=== PATIENT | female | born 1940 | race Caucasian/White ===

== ENCOUNTER → 2018-08-20 | Outpatient (CLI) | payer BC ==
[2013-12-30 16:30] VITALS: BP 124/70
[~2018-08-20] MED LIST: CELE200C PO; GADOTERATE 5 MMOL/10ML VIAL. IVP ONE; LECI1200 PO; NITR100C PO; OMEG-57 PO; Oxycodone Hcl/Acetaminophen PO; TRAM50TA PO; TRIA1TAB5 PO; WARF-78 PO; Warfarin Sodium MC
--- NOTE | 2018-08-20 15:54 | KCIC ---
MRI Brain with and without contrast History: Multiple sclerosis, leg weakness Technique: Multiplanar, multi sequential pre and postcontrast MR imaging was performed of the brain. Comparison: None available Findings: There is no evidence of recent infarct or cytotoxic edema. The ventricles, sulci, and cisterns are within normal limits in size and configuration. There is no significant midline shift, intraaxial mass effect, or focal abnormal extra-axial fluid collection. There are several scattered foci T2 and FLAIR hyperintense signal of the supratentorial parenchyma bilaterally, largest of the left centrum semiovale about 1.1 cm. Some new foci have a perpendicular orientation relative lateral ventricles. There is no nodular parenchymal or leptomeningeal enhancement. There is preservation of the major intracranial flow-voids at the skull base. The cerebellar tonsils are normal in location. There is no significant abnormality of the pineal gland or pituitary gland. There is mild right maxillary sinus mucosal thickening, large right maxillary sinus mucous retention cyst about 3 cm, also some small foci of likely complex mucous retention cysts present. The mastoid air cells are aerated. There is preserved marrow signal of the clivus. Impression: 1. There is no evidence of recent infarct or abnormal intracranial enhancement. There are some scattered foci of nonenhancing T2 and FLAIR hyperintense signal abnormality of the supratentorial parenchyma bilaterally, nonspecific findings which could be seen with provided history of inflammatory demyelinating disease. 2. There are right maxillary sinus mucous retention cysts. Electronically signed by: Bharathi Navas MD (08/20/2018 3:51 PM) [id number]
== END | disposition home or self-care (01) ==
LOC: KCIC MRI 13:31
PROVIDERS: ATTEND Psychiatry & Neurology Neurology with Special Qualifications in Child Neurology
DX: J34.1 Cyst and mucocele of nose and nasal sinus (principal); G93.89 Other specified disorders of brain; G35 Multiple sclerosis; Z87.891 Personal history of nicotine dependence
CPT/HCPCS: 70553; 82565; A9575

== ENCOUNTER 2020-07-02 10:41 | Inpatient (IN) | payer BC ==
[~2020-07-02] VITALS: Ht 167.6 cm; Wt 96.0 kg
[~2020-07-02 10:41] MED LIST changes: -GADOTERATE 5 MMOL/10ML VIAL. IVP ONE; -LECI1200 PO; +LEVO25TA55 PO; -WARF-78 PO; +WARF5TAB2 PO; +[UNRECOGNIZED DRUG - CODE] PO
[2020-07-02] MEDS ORDERED: AMMONIA AROMATIC 15% INHALANT AMPUL. ONE (10:54)
[2020-07-02] MEDS ORDERED: AMMONIA AROMATIC 15% INHALANT AMPUL. INH ONE (11:00)
[2020-07-02 11:10] LABS: BASO % 1 % (0-3); EOS % 1 % (0-3); HEMATOCRIT 41.5 % (36.0-47.0); HEMOGLOBIN 14.1 g/dL (12.0-15.5); LYMPH # 1.6 x10^3/uL (1.0-4.8); LYMPH % 26 % (24-48); MEAN CORPUSCULAR HEMOGLOBIN 31 pg (25-35); MEAN CORPUSCULAR HGB CONC 34 g/dL (31-37); MEAN CORPUSCULAR VOLUME 92 fL (79-100); MONO # 0.4 x10^3/uL (0.0-1.1); MONO % 6 % (0-9); NEUT # 4.1 x10^3/uL (1.8-7.7); NEUT % 67 % (31-73); PLATELET COUNT 234 x10^3/uL (140-400); RED CELL DISTRIBUTION WIDTH 15.1 % (11.5-14.5); WHITE BLOOD COUNT 6.1 x10^3/uL (4.0-11.0)
[2020-07-02 11:16] LABS: BILIRUBIN,URINE NEGATIVE (NEG); CLARITY,URINE CLEAR; COLOR,URINE YELLOW; NITRITE,URINE POSITIVE (NEG); PROTEIN,URINE NEGATIVE (NEG-TRACE); UROBILINOGEN,URINE 0.2 mg/dL (0.2 mg/dL)
[2020-07-02 11:20] LABS: CALCIUM 9.4 mg/dL (8.5-10.1); CREATININE 0.6 mg/dL (0.6-1.0); GFR 96.2; POTASSIUM 3.9 mmol/L (3.5-5.1)
[2020-07-02 11:25] LABS: BARBITURATES NEG (NEG); BENZODIAZEPINES NEG (NEG); CANNABINOIDS NEG (NEG); COCAINE NEG (NEG); METHADONE NEG (NEG); OPIATES NEG (NEG); PHENCYCLIDINE NEG (NEG)
[2020-07-02 11:26] LABS: BACTERIA,URINE MANY /HPF (0-FEW)
[2020-07-02 11:26] LABS: SALIC < 2.8 mg/dL (2.8-20.0)
[2020-07-02 11:27] LABS: ACETAMIN < 2 mcg/ml (10-30); ETHANOL < 10 mg/dL (0-10)
[2020-07-02 11:27] LABS: AMPHETAMINE/METHAMPHETAMINE NEG (NEG)
[2020-07-02 11:34] LABS: ALBUMIN 3.3 g/dL (3.4-5.0); ALBUMIN/GLOBULIN RATIO 0.9 (1.0-1.7); MAGNESIUM 1.8 mg/dL (1.8-2.4); TOTAL BILIRUBIN 0.4 mg/dL (0.2-1.0); TOTAL PROTEIN 6.9 g/dL (6.4-8.2)
[2020-07-02] MEDS ORDERED: cefTRIAXone IV Push 1 GM VIAL. IVP ONE (12:00)
[2020-07-02] MEDS ORDERED: IV NORMAL SALINE 500ML BAG 500 ML IV ONE (12:15)
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
--- NOTE | 2020-07-02 12:47 | EKG ---
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: : 1940 Requested By: MEGHA HEAD Order Number: [id number] Reading MD: Measurements Intervals [place] Rate: 83 P: 38 HI: 170 QRS: -42 QRSD: 106 T: 109 QT: 356 QTc: 419 Interpretive Statements SINUS RHYTHM VENTRICULAR PREMATURE COMPLEX(ES) ATRIAL PREMATURE COMPLEX(ES) ATRIAL ESCAPE COMPLEX(ES) ABNORMAL LEFT AXIS DEVIATION R-S TRANSITION ZONE IN V LEADS DISPLACED TO THE LEFT LEFT ANTERIOR FASCICULAR BLOCK INCOMPLETE RIGHT BUNDLE BRANCH BLOCK LVH WITH REPOLARIZATION ABNORMALITY QRS(T) CONTOUR ABNORMALITY CONSIDER ANTEROSEPTAL MYOCARDIAL DAMAGE ABNORMAL ECG RI6.02 No previous ECG available for comparison
[2020-07-02] MEDS ORDERED: ACETAMINOPHEN 325 MG TABLET. PO PRN (13:00)
[2020-07-02] MEDS ORDERED: ONDANSETRON PF 4 MG/2 ML VIAL. IV PRN (13:00)
--- NOTE | 2020-07-02 13:19 | RAD ---
PQRS Compliance Statement: One or more of the following individualized dose reduction techniques were utilized for this examinat ion: 1. Automated exposure control 2. Adjustment of the mA and/or kV according to patient size 3. Use of iterative reconstruction technique CT HEAD AND CERVICAL SPINE WITHOUT CONTRAST History: Reason: ams / Spl. Instructions: / History: Comparison: CT head and cervical spine without contrast January 24, 2019. Procedure: Axial images are obtained of the head from the skull base through the vertex without IV co ntrast. Noncontrast helical CT of the cervical spine was performed. Axial, sagittal, and coronal rec onstructions were obtained. Findings: The ventricles and sulci are normal for the patient's age. There is mild periventricular white matter hypoattenuation. This is a nonspecific finding but is com monly due to chronic small vessel ischemic disease in a patient of this age. No mass-effect, midline shift, hemorrhage or obvious acute infarction is identified. Basilar cistern s are patent. Bone windows demonstrate no significant calvarial abnormality. There is large mucous retention cyst or polyp partially seen in the right maxillary sinus. There is n o air-fluid level. Mastoid air cells are well aerated. There is no evidence of acute fracture or acute malalignment of the cervical spine. There are no perched or jumped facet joints. Facet joints are mildly hypertrophic, worse on the right . There is grade 1 anterolisthesis of C4 on C5. The alignment is otherwise maintained. There is disc space narrowing and degenerative endplate spurring and sclerosis and uncinate process hypertrophy of C5/C6 and C6/C7. There is an 8 mm left thyroid nodule. There is a 9 mm right thyroid nodule. The visualized lung apice s are clear. IMPRESSION: 1. No acute intracranial abnormality. 2. No acute fracture of the cervical spine. 3. Subcentimeter bilateral thyroid nodules. Electronically signed by: Waldo Webber MD (07/02/2020 1:16 PM) [id number]
[2020-07-02] MEDS: IV NORMAL SALINE 1000ML BAG 1,000 ML IV SCH ×2 (13:55→23:38)
--- NOTE | 2020-07-02 14:41 | HP ---
ADMIT DATE: 07/02/2020 CHIEF COMPLAINT: Mental status changes. HISTORY OF PRESENT ILLNESS: The patient is a pleasant, middle-aged female, who presented to the ER with mental status change. It appears she might be malingering perhaps attention seeking. She does live by herself. Her daughter lives on the same property. Her daughter states that the patient has been having some mental status change and some memory issues over the recent past. While in the ER, we noticed that she has also had a UTI. I discussed the case with ER physician. We are going to admit the patient and get her some IV antibiotics and fluids. PAST MEDICAL HISTORY: Possible early dementia, hypertension, multiple sclerosis. PAST SURGICAL HISTORY: Knee surgery. ALLERGIES: ASPARTAME, ATORVASTATIN, CHLORHEXIDINE, CODEINE. FAMILY HISTORY: Stroke. SOCIAL HISTORY: She does not drink, smoke or take drugs. She lives alone. MEDICATIONS: Reviewed. Please refer for the MRAD. REVIEW OF SYSTEMS: Unable to obtain. The patient refuses to talk. PHYSICAL EXAMINATION: VITAL SIGNS: template but she will need to force her eyes open and she refuses to talk, but she has refused to talk psychiatric followup, but she refuses to talk. PHYSICAL EXAMINATION: VITALS: Within normal limits and are stable. GENERAL: She refuses to talk. HEENT: Normal cephalic atraumatic, external auditory canals are patent. EYES: Extraocular muscles are intact, pupils are equally round and reactive to light and accommodation. MUSCULOSKELETAL: Well developed, well nourished, good range of motion. ENDOCRINE: No thyromegaly was palpated. LYMPHATICS: No cervical chain or axillary nodes were noted. HEMATOPOIETIC: No bruising. NECK: Supple, no JVD, no thyromegaly was noted. LUNGS: Clear to auscultation in all lung cuevas without rhonchi or wheezing. HEART: RRR, S1, S2 present. Peripheral pulses intact, no obvious murmurs were noted. ABDOMEN: Soft, nontender. Positive bowel sounds no organomegaly, normal bowel sounds. EXTREMITIES: Without any cyanosis, clubbing, or edema. Pedal pulses intact, Homans sign is negative. NEUROLOGIC: She would not let me to force her eyes open and she refuses to talk. PSYCHIATRIC: She refuses to talk. SKIN: No ulcerations or rashes, good skin turgor, no jaundice. VASCULAR: Good capillary refill, neurovascular bundle appears to be intact. LABORATORY DATA: White count 6. Electrolytes are normal. Urinalysis shows a large amount of leukocyte esterase and 11-20 white cells. ASSESSMENT AND PLAN: Mental status change with incidental finding of urinary tract infection. PLAN: The patient has been admitted. We will give her empiric IV antibiotics and fluids, home meds. DVT prophylaxis. Full code. She might need long-term care or skilled. We will see how she does in the next day or two. VILMA DR: Coretta TID: [id number]
--- NOTE | 2020-07-02 16:51 | NUR ---
Pt. states she does not know her home meds, daughter is to bring list.
[2020-07-02] MEDS ORDERED: TRIA1TAB3 PO (18:38)
[2020-07-02 19:00] VITALS: BP 130/71
[2020-07-02 23:00] VITALS: BP 124/50
[2020-07-03 03:00] VITALS: BP 93/35
[2020-07-03 04:57] LABS: BASO % 1 % (0-3); EOS # 0.1 x10^3/uL (0.0-0.7); EOS % 2 % (0-3); HEMATOCRIT 37.9 % (36.0-47.0); HEMOGLOBIN 12.7 g/dL (12.0-15.5); LYMPH # 1.8 x10^3/uL (1.0-4.8); LYMPH % 25 % (24-48); MEAN CORPUSCULAR HEMOGLOBIN 32 pg (25-35); MEAN CORPUSCULAR HGB CONC 33 g/dL (31-37); MEAN CORPUSCULAR VOLUME 95 fL (79-100); MONO # 0.5 x10^3/uL (0.0-1.1); MONO % 7 % (0-9); NEUT # 4.9 x10^3/uL (1.8-7.7); NEUT % 66 % (31-73); PLATELET COUNT 209 x10^3/uL (140-400); RED CELL DISTRIBUTION WIDTH 15.4 % (11.5-14.5); WHITE BLOOD COUNT 7.4 x10^3/uL (4.0-11.0)
[2020-07-03 05:41] LABS: CALCIUM 8.5 mg/dL (8.5-10.1); CREATININE 0.5 mg/dL (0.6-1.0); GFR 118.7; POTASSIUM 3.5 mmol/L (3.5-5.1)
[2020-07-03 07:00] VITALS: BP 131/62
[2020-07-03] MEDS: IV NORMAL SALINE 1000ML BAG 1,000 ML IV SCH (08:23)
--- NOTE | 2020-07-03 10:11 | PDOC ---
PROGRESS NOTES Date of Service: DATE: 07/03/20 TIME: 10:10 Chief Complaint Chief Complaint ASSESSMENT AND PLAN: Mental status change urinary tract infection. sepsis as evidenced by AMS, ACUTE acute metabolic encephalopathy due to sepsis morbid obesity PLAN: admitted. = empiric IV antibiotics iv fluids, home meds. DVT prophylaxis. Full code. might need long-term care or skilled. PT/OT No acute intracranial abnormality. History of Present Illness History of Present Illness CHIEF COMPLAINT: Mental status changes. HISTORY OF PRESENT ILLNESS: The patient is a pleasant, middle-aged female, who presented to the ER with mental status change. She does live by herself. in home attached to family Her daughter lives on the same property. Her daughter states that the patient has been having some mental status change and some memory issues over the recent past. While in the ER, we noticed that she has also had a UTI. admit the patient and get her some IV antibiotics and fluids. PAST MEDICAL HISTORY: hypertension, multiple sclerosis. PAST SURGICAL HISTORY: Knee surgery. ALLERGIES: ASPARTAME, ATORVASTATIN, CHLORHEXIDINE, CODEINE. FAMILY HISTORY: Stroke. SOCIAL HISTORY: She does not drink, smoke or take drugs. She lives alone. MEDICATIONS: Reviewed. Please refer for the MRAD. REVIEW OF SYSTEMS: denies pain, soa, vomiting, is aware she was altered yesterday 07-03 alert, oriented, afebrile Mental status change improving urinary tract infection. sepsis as evidenced by AMS, ACUTE acute metabolic encephalopathy due to sepsis morbid obesity CONTINUE IV ROCEPHIN 1 GM Q 24 HRS D/W RN Vitals Vitals Vital Signs Date Time Temp Pulse Resp B/P (MAP) Pulse Ox O2 Delivery O2 Flow Rate FiO2 07/03/20 07:00 97.4 85 18 131/62 (85) 93 97.4 07/02/20 20:00 Room Air Physical Exam Physical Exam HEENT: Normal cephalic atraumatic, external auditory canals are patent. EYES: Extraocular muscles are intact, pupils are equally round and reactive to light and accommodation. MUSCULOSKELETAL: Well developed, well nourished, good range of motion. ENDOCRINE: No thyromegaly was palpated. LYMPHATICS: No cervical chain or axillary nodes were noted. HEMATOPOIETIC: No bruising. NECK: Supple, no JVD, no thyromegaly was noted. LUNGS: Clear to auscultation in all lung cuevas without rhonchi or wheezing. HEART: RRR, S1, S2 present. Peripheral pulses intact, no obvious murmurs were noted. ABDOMEN: Soft, nontender. Positive bowel sounds no organomegaly, normal bowel sounds. EXTREMITIES: Without any cyanosis, clubbing, or edema. Pedal pulses intact, Homans sign is negative. NEUROLOGIC: She IS AWARE of place and time, hospital PSYCHIATRIC: calm SKIN: No ulcerations or rashes, good skin turgor, no jaundice. VASCULAR: Good capillary refill, neurovascular bundle appears to be intact. General: Alert, Oriented X3, Cooperative, No acute distress Heart: Regular rate, Normal S1, Normal S2, No murmurs Lungs: Clear Abdomen: Normal bowel sounds, Soft, No tenderness Extremities: No cyanosis, No edema Skin: No significant lesion Labs LABS PQRS Compliance Statement: One or more of the following individualized dose reduction techniques were utilized for this examination: 1. Automated exposure control 2. Adjustment of the mA and/or kV according to patient size 3. Use of iterative reconstruction technique CT HEAD AND CERVICAL SPINE WITHOUT CONTRAST History: Reason: ams / Spl. Instructions: / History: Comparison: CT head and cervical spine without contrast January 24, 2019. Procedure: Axial images are obtained of the head from the skull base through the vertex without IV contrast. Noncontrast helical CT of the cervical spine was performed. Axial, sagittal, and coronal reconstructions were obtained. Findings: The ventricles and sulci are normal for the patient's age. There is mild periventricular white matter hypoattenuation. This is a nonspecific finding but is commonly due to chronic small vessel ischemic disease in a patient of this age. No mass-effect, midline shift, hemorrhage or obvious acute infarction is identified. Basilar cisterns are patent. Bone windows demonstrate no significant calvarial abnormality. There is large mucous retention cyst or polyp partially seen in the right maxillary sinus. There is no air-fluid level. Mastoid air cells are well aerated. There is no evidence of acute fracture or acute malalignment of the cervical spine. There are no perched or jumped facet joints. Facet joints are mildly hypertrophic, worse on the right. There is grade 1 anterolisthesis of C4 on C5. The alignment is otherwise maintained. There is disc space narrowing and degenerative endplate spurring and sclerosis and uncinate process hypertrophy of C5/C6 and C6/C7. There is an 8 mm left thyroid nodule. There is a 9 mm right thyroid nodule. The visualized lung apices are clear. IMPRESSION: 1. No acute intracranial abnormality. 2. No acute fracture of the cervical spine. 3. Subcentimeter bilateral thyroid nodules. Electronically signed by: Waldo Webber MD (07/02/2020 1:16 PM) [id number] Laboratory Tests Test 07/02/20 10:45 07/02/20 10:50 07/02/20 11:03 07/02/20 17:00 Glucose (Fingerstick) 89 mg/dL (70-99) White Blood Count 6.1 x10^3/uL (4.0-11.0) Red Blood Count 4.50 x10^6/uL (3.50-5.40) Hemoglobin 14.1 g/dL (12.0-15.5) Hematocrit 41.5 % (36.0-47.0) Mean Corpuscular Volume 92 fL (79-100) Mean Corpuscular Hemoglobin 31 pg (25-35) Mean Corpuscular Hemoglobin Concent 34 g/dL (31-37) Red Cell Distribution Width 15.1 % (11.5-14.5) Platelet Count 234 x10^3/uL (140-400) Neutrophils (%) (Auto) 67 % (31-73) Lymphocytes (%) (Auto) 26 % (24-48) Monocytes (%) (Auto) 6 % (0-9) Eosinophils (%) (Auto) 1 % (0-3) Basophils (%) (Auto) 1 % (0-3) Neutrophils # (Auto) 4.1 x10^3/uL (1.8-7.7) Lymphocytes # (Auto) 1.6 x10^3/uL (1.0-4.8) Monocytes # (Auto) 0.4 x10^3/uL (0.0-1.1) Eosinophils # (Auto) 0.0 x10^3/uL (0.0-0.7) Basophils # (Auto) 0.0 x10^3/uL (0.0-0.2) Sodium Level 143 mmol/L (136-145) Potassium Level 3.9 mmol/L (3.5-5.1) Chloride Level 103 mmol/L (98-107) Carbon Dioxide Level 32 mmol/L (21-32) Anion Gap 8 (6-14) Blood Urea Nitrogen 11 mg/dL (7-20) Creatinine 0.6 mg/dL (0.6-1.0) Estimated GFR (Cockcroft-Gault) 96.2 BUN/Creatinine Ratio 18 (6-20) Glucose Level 83 mg/dL (70-99) Lactic Acid Level 0.6 mmol/L (0.4-2.0) Calcium Level 9.4 mg/dL (8.5-10.1) Magnesium Level 1.8 mg/dL (1.8-2.4) Total Bilirubin 0.4 mg/dL (0.2-1.0) Aspartate Amino Transf (AST/SGOT) 17 U/L (15-37) Alanine Aminotransferase (ALT/SGPT) 22 U/L (14-59) Alkaline Phosphatase 97 U/L (46-116) Creatine Kinase 15 U/L (26-192) Troponin I Quantitative < 0.017 ng/mL (0.000-0.055) < 0.017 ng/mL (0.000-0.055) KH-Euq-Q-Type Natriuretic Peptide 144 pg/mL (0-449) Total Protein 6.9 g/dL (6.4-8.2) Albumin 3.3 g/dL (3.4-5.0) Albumin/Globulin Ratio 0.9 (1.0-1.7) Salicylates Level < 2.8 mg/dL (2.8-20.0) Salicylate Last Dose Date Unknown Salicylate Last Dose Time Unknown Acetaminophen Level < 2 mcg/ml (10-30) Acetaminophen Last Dose Date Unknown Acetaminophen Last Dose Time Unknown Ethyl Alcohol Level < 10 mg/dL (0-10) Urine Collection Type Unknown Urine Color Yellow Urine Clarity Clear Urine pH 7.0 (<5.0-8.0) Urine Specific [place] 1.010 (1.000-1.030) Urine Protein Negative mg/dL (NEG-TRACE) Urine Glucose (UA) Negative mg/dL (NEG) Urine Ketones (Stick) Negative mg/dL (NEG) Urine Blood Negative (NEG) Urine Nitrite Positive (NEG) Urine Bilirubin Negative (NEG) Urine Urobilinogen Dipstick 0.2 mg/dL (0.2 mg/dL) Urine Leukocyte Esterase Large (NEG) Urine RBC 1-2 /HPF (0-2) Urine WBC 11-20 /HPF (0-4) Urine Squamous Epithelial Cells Few /LPF Urine Bacteria Many /HPF (0-FEW) Urine Opiates Screen Neg (NEG) Urine Methadone Screen Neg (NEG) Urine Barbiturates Neg (NEG) Urine Phencyclidine Screen Neg (NEG) Urine Amphetamine/Methamphetamine Neg (NEG) Urine Benzodiazepines Screen Neg (NEG) Urine Cocaine Screen Neg (NEG) Urine Cannabinoids Screen Neg (NEG) Urine Ethyl Alcohol Neg (NEG) Test 07/02/20 20:55 07/03/20 04:05 Troponin I Quantitative < 0.017 ng/mL (0.000-0.055) White Blood Count 7.4 x10^3/uL (4.0-11.0) Red Blood Count 4.00 x10^6/uL (3.50-5.40) Hemoglobin 12.7 g/dL (12.0-15.5) Hematocrit 37.9 % (36.0-47.0) Mean Corpuscular Volume 95 fL (79-100) Mean Corpuscular Hemoglobin 32 pg (25-35) Mean Corpuscular Hemoglobin Concent 33 g/dL (31-37) Red Cell Distribution Width 15.4 % (11.5-14.5) Platelet Count 209 x10^3/uL (140-400) Neutrophils (%) (Auto) 66 % (31-73) Lymphocytes (%) (Auto) 25 % (24-48) Monocytes (%) (Auto) 7 % (0-9) Eosinophils (%) (Auto) 2 % (0-3) Basophils (%) (Auto) 1 % (0-3) Neutrophils # (Auto) 4.9 x10^3/uL (1.8-7.7) Lymphocytes # (Auto) 1.8 x10^3/uL (1.0-4.8) Monocytes # (Auto) 0.5 x10^3/uL (0.0-1.1) Eosinophils # (Auto) 0.1 x10^3/uL (0.0-0.7) Basophils # (Auto) 0.0 x10^3/uL (0.0-0.2) Sodium Level 144 mmol/L (136-145) Potassium Level 3.5 mmol/L (3.5-5.1) Chloride Level 107 mmol/L (98-107) Carbon Dioxide Level 29 mmol/L (21-32) Anion Gap 8 (6-14) Blood Urea Nitrogen 10 mg/dL (7-20) Creatinine 0.5 mg/dL (0.6-1.0) Estimated GFR (Cockcroft-Gault) 118.7 Glucose Level 73 mg/dL (70-99) Calcium Level 8.5 mg/dL (8.5-10.1) Assessment and Plan Assessmemt and Plan Problems Medical Problems: (1) AMS (altered mental status) Status: Acute (2) UTI (urinary tract infection) Status: Acute Comment Review of Relevant I have reviewed the following items luis felipe (where applicable) has been applied. Labs Laboratory Tests Test 07/02/20 10:45 07/02/20 10:50 07/02/20 11:03 07/02/20 17:00 Glucose (Fingerstick) 89 mg/dL (70-99) White Blood Count 6.1 x10^3/uL (4.0-11.0) Red Blood Count 4.50 x10^6/uL (3.50-5.40) Hemoglobin 14.1 g/dL (12.0-15.5) Hematocrit 41.5 % (36.0-47.0) Mean Corpuscular Volume 92 fL (79-100) Mean Corpuscular Hemoglobin 31 pg (25-35) Mean Corpuscular Hemoglobin Concent 34 g/dL (31-37) Red Cell Distribution Width 15.1 % (11.5-14.5) Platelet Count 234 x10^3/uL (140-400) Neutrophils (%) (Auto) 67 % (31-73) Lymphocytes (%) (Auto) 26 % (24-48) Monocytes (%) (Auto) 6 % (0-9) Eosinophils (%) (Auto) 1 % (0-3) Basophils (%) (Auto) 1 % (0-3) Neutrophils # (Auto) 4.1 x10^3/uL (1.8-7.7) Lymphocytes # (Auto) 1.6 x10^3/uL (1.0-4.8) Monocytes # (Auto) 0.4 x10^3/uL (0.0-1.1) Eosinophils # (Auto) 0.0 x10^3/uL (0.0-0.7) Basophils # (Auto) 0.0 x10^3/uL (0.0-0.2) Sodium Level 143 mmol/L (136-145) Potassium Level 3.9 mmol/L (3.5-5.1) Chloride Level 103 mmol/L (98-107) Carbon Dioxide Level 32 mmol/L (21-32) Anion Gap 8 (6-14) Blood Urea Nitrogen 11 mg/dL (7-20) Creatinine 0.6 mg/dL (0.6-1.0) Estimated GFR (Cockcroft-Gault) 96.2 BUN/Creatinine Ratio 18 (6-20) Glucose Level 83 mg/dL (70-99) Lactic Acid Level 0.6 mmol/L (0.4-2.0) Calcium Level 9.4 mg/dL (8.5-10.1) Magnesium Level 1.8 mg/dL (1.8-2.4) Total Bilirubin 0.4 mg/dL (0.2-1.0) Aspartate Amino Transf (AST/SGOT) 17 U/L (15-37) Alanine Aminotransferase (ALT/SGPT) 22 U/L (14-59) Alkaline Phosphatase 97 U/L (46-116) Creatine Kinase 15 U/L (26-192) Troponin I Quantitative < 0.017 ng/mL (0.000-0.055) < 0.017 ng/mL (0.000-0.055) HU-Woy-X-Type Natriuretic Peptide 144 pg/mL (0-449) Total Protein 6.9 g/dL (6.4-8.2) Albumin 3.3 g/dL (3.4-5.0) Albumin/Globulin Ratio 0.9 (1.0-1.7) Salicylates Level < 2.8 mg/dL (2.8-20.0) Salicylate Last Dose Date Unknown Salicylate Last Dose Time Unknown Acetaminophen Level < 2 mcg/ml (10-30) Acetaminophen Last Dose Date Unknown Acetaminophen Last Dose Time Unknown Ethyl Alcohol Level < 10 mg/dL (0-10) Urine Collection Type Unknown Urine Color Yellow Urine Clarity Clear Urine pH 7.0 (<5.0-8.0) Urine Specific [place] 1.010 (1.000-1.030) Urine Protein Negative mg/dL (NEG-TRACE) Urine Glucose (UA) Negative mg/dL (NEG) Urine Ketones (Stick) Negative mg/dL (NEG) Urine Blood Negative (NEG) Urine Nitrite Positive (NEG) Urine Bilirubin Negative (NEG) Urine Urobilinogen Dipstick 0.2 mg/dL (0.2 mg/dL) Urine Leukocyte Esterase Large (NEG) Urine RBC 1-2 /HPF (0-2) Urine WBC 11-20 /HPF (0-4) Urine Squamous Epithelial Cells Few /LPF Urine Bacteria Many /HPF (0-FEW) Urine Opiates Screen Neg (NEG) Urine Methadone Screen Neg (NEG) Urine Barbiturates Neg (NEG) Urine Phencyclidine Screen Neg (NEG) Urine Amphetamine/Methamphetamine Neg (NEG) Urine Benzodiazepines Screen Neg (NEG) Urine Cocaine Screen Neg (NEG) Urine Cannabinoids Screen Neg (NEG) Urine Ethyl Alcohol Neg (NEG) Test 07/02/20 20:55 07/03/20 04:05 Troponin I Quantitative < 0.017 ng/mL (0.000-0.055) White Blood Count 7.4 x10^3/uL (4.0-11.0) Red Blood Count 4.00 x10^6/uL (3.50-5.40) Hemoglobin 12.7 g/dL (12.0-15.5) Hematocrit 37.9 % (36.0-47.0) Mean Corpuscular Volume 95 fL (79-100) Mean Corpuscular Hemoglobin 32 pg (25-35) Mean Corpuscular Hemoglobin Concent 33 g/dL (31-37) Red Cell Distribution Width 15.4 % (11.5-14.5) Platelet Count 209 x10^3/uL (140-400) Neutrophils (%) (Auto) 66 % (31-73) Lymphocytes (%) (Auto) 25 % (24-48) Monocytes (%) (Auto) 7 % (0-9) Eosinophils (%) (Auto) 2 % (0-3) Basophils (%) (Auto) 1 % (0-3) Neutrophils # (Auto) 4.9 x10^3/uL (1.8-7.7) Lymphocytes # (Auto) 1.8 x10^3/uL (1.0-4.8) Monocytes # (Auto) 0.5 x10^3/uL (0.0-1.1) Eosinophils # (Auto) 0.1 x10^3/uL (0.0-0.7) Basophils # (Auto) 0.0 x10^3/uL (0.0-0.2) Sodium Level 144 mmol/L (136-145) Potassium Level 3.5 mmol/L (3.5-5.1) Chloride Level 107 mmol/L (98-107) Carbon Dioxide Level 29 mmol/L (21-32) Anion Gap 8 (6-14) Blood Urea Nitrogen 10 mg/dL (7-20) Creatinine 0.5 mg/dL (0.6-1.0) Estimated GFR (Cockcroft-Gault) 118.7 Glucose Level 73 mg/dL (70-99) Calcium Level 8.5 mg/dL (8.5-10.1) Laboratory Tests Test 07/02/20 10:45 07/02/20 10:50 07/02/20 11:03 07/02/20 17:00 Glucose (Fingerstick) 89 mg/dL (70-99) White Blood Count 6.1 x10^3/uL (4.0-11.0) Red Blood Count 4.50 x10^6/uL (3.50-5.40) Hemoglobin 14.1 g/dL (12.0-15.5) Hematocrit 41.5 % (36.0-47.0) Mean Corpuscular Volume 92 fL (79-100) Mean Corpuscular Hemoglobin 31 pg (25-35) Mean Corpuscular Hemoglobin Concent 34 g/dL (31-37) Red Cell Distribution Width 15.1 % (11.5-14.5) Platelet Count 234 x10^3/uL (140-400) Neutrophils (%) (Auto) 67 % (31-73) Lymphocytes (%) (Auto) 26 % (24-48) Monocytes (%) (Auto) 6 % (0-9) Eosinophils (%) (Auto) 1 % (0-3) Basophils (%) (Auto) 1 % (0-3) Neutrophils # (Auto) 4.1 x10^3/uL (1.8-7.7) Lymphocytes # (Auto) 1.6 x10^3/uL (1.0-4.8) Monocytes # (Auto) 0.4 x10^3/uL (0.0-1.1) Eosinophils # (Auto) 0.0 x10^3/uL (0.0-0.7) Basophils # (Auto) 0.0 x10^3/uL (0.0-0.2) Sodium Level 143 mmol/L (136-145) Potassium Level 3.9 mmol/L (3.5-5.1) Chloride Level 103 mmol/L (98-107) Carbon Dioxide Level 32 mmol/L (21-32) Anion Gap 8 (6-14) Blood Urea Nitrogen 11 mg/dL (7-20) Creatinine 0.6 mg/dL (0.6-1.0) Estimated GFR (Cockcroft-Gault) 96.2 BUN/Creatinine Ratio 18 (6-20) Glucose Level 83 mg/dL (70-99) Lactic Acid Level 0.6 mmol/L (0.4-2.0) Calcium Level 9.4 mg/dL (8.5-10.1) Magnesium Level 1.8 mg/dL (1.8-2.4) Total Bilirubin 0.4 mg/dL (0.2-1.0) Aspartate Amino Transf (AST/SGOT) 17 U/L (15-37) Alanine Aminotransferase (ALT/SGPT) 22 U/L (14-59) Alkaline Phosphatase 97 U/L (46-116) Creatine Kinase 15 U/L (26-192) Troponin I Quantitative < 0.017 ng/mL (0.000-0.055) < 0.017 ng/mL (0.000-0.055) UA-Bse-V-Type Natriuretic Peptide 144 pg/mL (0-449) Total Protein 6.9 g/dL (6.4-8.2) Albumin 3.3 g/dL (3.4-5.0) Albumin/Globulin Ratio 0.9 (1.0-1.7) Salicylates Level < 2.8 mg/dL (2.8-20.0) Salicylate Last Dose Date Unknown Salicylate Last Dose Time Unknown Acetaminophen Level < 2 mcg/ml (10-30) Acetaminophen Last Dose Date Unknown Acetaminophen Last Dose Time Unknown Ethyl Alcohol Level < 10 mg/dL (0-10) Urine Collection Type Unknown Urine Color Yellow Urine Clarity Clear Urine pH 7.0 (<5.0-8.0) Urine Specific [place] 1.010 (1.000-1.030) Urine Protein Negative mg/dL (NEG-TRACE) Urine Glucose (UA) Negative mg/dL (NEG) Urine Ketones (Stick) Negative mg/dL (NEG) Urine Blood Negative (NEG) Urine Nitrite Positive (NEG) Urine Bilirubin Negative (NEG) Urine Urobilinogen Dipstick 0.2 mg/dL (0.2 mg/dL) Urine Leukocyte Esterase Large (NEG) Urine RBC 1-2 /HPF (0-2) Urine WBC 11-20 /HPF (0-4) Urine Squamous Epithelial Cells Few /LPF Urine Bacteria Many /HPF (0-FEW) Urine Opiates Screen Neg (NEG) Urine Methadone Screen Neg (NEG) Urine Barbiturates Neg (NEG) Urine Phencyclidine Screen Neg (NEG) Urine Amphetamine/Methamphetamine Neg (NEG) Urine Benzodiazepines Screen Neg (NEG) Urine Cocaine Screen Neg (NEG) Urine Cannabinoids Screen Neg (NEG) Urine Ethyl Alcohol Neg (NEG) Test 07/02/20 20:55 07/03/20 04:05 Troponin I Quantitative < 0.017 ng/mL (0.000-0.055) White Blood Count 7.4 x10^3/uL (4.0-11.0) Red Blood Count 4.00 x10^6/uL (3.50-5.40) Hemoglobin 12.7 g/dL (12.0-15.5) Hematocrit 37.9 % (36.0-47.0) Mean Corpuscular Volume 95 fL (79-100) Mean Corpuscular Hemoglobin 32 pg (25-35) Mean Corpuscular Hemoglobin Concent 33 g/dL (31-37) Red Cell Distribution Width 15.4 % (11.5-14.5) Platelet Count 209 x10^3/uL (140-400) Neutrophils (%) (Auto) 66 % (31-73) Lymphocytes (%) (Auto) 25 % (24-48) Monocytes (%) (Auto) 7 % (0-9) Eosinophils (%) (Auto) 2 % (0-3) Basophils (%) (Auto) 1 % (0-3) Neutrophils # (Auto) 4.9 x10^3/uL (1.8-7.7) Lymphocytes # (Auto) 1.8 x10^3/uL (1.0-4.8) Monocytes # (Auto) 0.5 x10^3/uL (0.0-1.1) Eosinophils # (Auto) 0.1 x10^3/uL (0.0-0.7) Basophils # (Auto) 0.0 x10^3/uL (0.0-0.2) Sodium Level 144 mmol/L (136-145) Potassium Level 3.5 mmol/L (3.5-5.1) Chloride Level 107 mmol/L (98-107) Carbon Dioxide Level 29 mmol/L (21-32) Anion Gap 8 (6-14) Blood Urea Nitrogen 10 mg/dL (7-20) Creatinine 0.5 mg/dL (0.6-1.0) Estimated GFR (Cockcroft-Gault) 118.7 Glucose Level 73 mg/dL (70-99) Calcium Level 8.5 mg/dL (8.5-10.1) Microbiology 07/02/20 Urine Culture - Preliminary, Resulted Medications Current Medications Ammonia (Aromatic Spirit) (Amoply) 1 each 1X ONCE INH Last administered on 07/02/20at 10:55; Start 07/02/20 at 11:00; Stop 07/02/20 at 11:01; Status DC Ammonia (Aromatic Spirit) (Amoply) 1 each STK-MED ONCE .ROUTE ; Start 07/02/20 at 10:54; Stop 07/02/20 at 10:54; Status DC Ceftriaxone Sodium (Rocephin) 1 gm 1X ONCE IVP Last administered on 07/02/20at 12:42; Start 07/02/20 at 12:00; Stop 07/02/20 at 12:01; Status DC Sodium Chloride 500 ml @ 500 mls/hr 1X ONCE IV Last administered on 07/02/20at 12:42; Start 07/02/20 at 12:15; Stop 07/02/20 at 13:14; Status DC Ondansetron HCl (Zofran) 4 mg PRN Q8HRS PRN IV NAUSEA/VOMITING; Start 07/02/20 at 13:00; Stop 07/03/20 at 12:59 Sodium Chloride 1,000 ml @ 100 mls/hr Q10H IV Last administered on 07/03/20at 08:23; Start 07/02/20 at 13:00; Stop 07/03/20 at 12:59 Acetaminophen (Tylenol) 650 mg PRN Q4HRS PRN PO FEVER > 100.3'F; Start 07/02/20 at 13:00; Stop 07/03/20 at 12:59 Ceftriaxone Sodium (Rocephin) 1 gm Q24H IVP ; Start 07/03/20 at 13:00 Active Scripts Active Synthroid (Levothyroxine Sodium) 25 Mcg Tablet 25 Mcg PO DAILY06 30 Days Reported Triamterene-Hctz 37.5-25 Mg Tb (Triamterene/Hydrochlorothiazid) 1 Each Tablet 1 Tab PO DAILY Vitals/I & O Vital Sign - Last 24 Hours 07/02/20 07/02/20 07/02/20 07/02/20 10:41 11:07 11:15 11:45 Temp 98.4 98.4 Pulse 87 88 84 78 Resp 16 16 16 16 B/P (MAP) 191/82 (118) 176/75 (108) 166/72 (103) 152/66 (94) Pulse Ox 97 96 95 95 O2 Delivery Room Air Room Air 07/02/20 07/02/20 07/02/20 07/02/20 12:14 13:53 14:23 14:53 Pulse 74 76 76 78 Resp 16 16 16 16 B/P (MAP) 167/77 (107) 148/63 (91) 148/69 (95) 139/67 (91) Pulse Ox 95 96 96 95 O2 Delivery Room Air 07/02/20 07/02/20 07/02/20 07/02/20 15:40 19:00 20:00 20:00 Temp 97.4 97.4 Pulse 73 Resp 16 B/P (MAP) 130/71 (90) Pulse Ox 94 O2 Delivery Room Air Room Air Room Air 07/02/20 07/03/20 07/03/20 23:00 03:00 07:00 Temp 97.8 97.4 97.4 97.8 97.4 97.4 Pulse 77 90 85 Resp 16 18 18 B/P (MAP) 124/50 (74) 93/35 (54) 131/62 (85) Pulse Ox 94 94 93 Intake and Output 07/02/20 07/02/20 07/03/20 15:00 23:00 07:00 Intake Total 500 ml Output Total 350 ml Balance 500 ml -350 ml Justicifation of Admission Dx: Justifications for Admission: Justification of Admission Dx: Yes Sepsis: Altered Mental Status Comments: SEPSIS RAMRIO PEOPLES MD July 03, 2020 10:11
--- NOTE | 2020-07-03 10:11 | NUR ---
FLORIDALMA following. Discussed with RN, pt from home alone, daughter lives on same property, room air, soft mechanical diet. PT/OT ordered. FLORIDALMA will continue to follow. Addendum: 07/03/20 at 1357 by KASHIF HEDRICK PT/OT recommending SNF. FLORIDAL[facility] spoke with pt's daughter/DPDanielle PUCKETT - she thinks it would be a good idea, and would like referral sent to [facility] where pt was before. FLOR[facility]ALMA faxed referral to [facility]. Awaiting return call from RN to determine when pt might be ready for discharge, and whether COVID swab was obtained. FLORIDALMA will continue to follow. Addendum: 07/03/20 at 1626 by KASHIF HEDRICK Pt accepted at [facility], pending insurance auth. RN notified.
[2020-07-03 10:48] VITALS: BP 124/48
[2020-07-03] MEDS: cefTRIAXone IV Push 1 GM VIAL. IVP SCH (14:30)
[2020-07-03 14:40] VITALS: BP 121/65
--- NOTE | 2020-07-03 19:03 | PDOC ---
PROGRESS NOTES Date of Service: DATE: 07/03/20 TIME: 19:02 Chief Complaint Chief Complaint ASSESSMENT AND PLAN: Mental status change urinary tract infection. sepsis as evidenced by AMS, ACUTE acute metabolic encephalopathy due to sepsis morbid obesity PLAN: admitted. = empiric IV antibiotics iv fluids, home meds. DVT prophylaxis. Full code. might need long-term care or skilled. PT/OT No acute intracranial abnormality. History of Present Illness History of Present Illness CHIEF COMPLAINT: Mental status changes. HISTORY OF PRESENT ILLNESS: The patient is a pleasant, middle-aged female, who presented to the ER with mental status change. She does live by herself. in home attached to family Her daughter lives on the same property. Her daughter states that the patient has been having some mental status change and some memory issues over the recent past. While in the ER, we noticed that she has also had a UTI. admit the patient and get her some IV antibiotics and fluids. PAST MEDICAL HISTORY: hypertension, multiple sclerosis. PAST SURGICAL HISTORY: Knee surgery. ALLERGIES: ASPARTAME, ATORVASTATIN, CHLORHEXIDINE, CODEINE. FAMILY HISTORY: Stroke. SOCIAL HISTORY: She does not drink, smoke or take drugs. She lives alone. MEDICATIONS: Reviewed. Please refer for the MRAD. REVIEW OF SYSTEMS: denies pain, soa, vomiting, is aware she was altered yesterday 07-03 alert, oriented, afebrile Mental status change improving urinary tract infection. sepsis as evidenced by AMS, ACUTE acute metabolic encephalopathy due to sepsis morbid obesity CONTINUE IV ROCEPHIN 1 GM Q 24 HRS D/W RN Vitals Vitals Vital Signs Date Time Temp Pulse Resp B/P (MAP) Pulse Ox O2 Delivery O2 Flow Rate FiO2 07/03/20 14:40 97.3 80 18 121/65 (83) 95 97.3 07/03/20 08:00 Room Air Physical Exam Physical Exam HEENT: Normal cephalic atraumatic, external auditory canals are patent. EYES: Extraocular muscles are intact, pupils are equally round and reactive to light and accommodation. MUSCULOSKELETAL: Well developed, well nourished, good range of motion. ENDOCRINE: No thyromegaly was palpated. LYMPHATICS: No cervical chain or axillary nodes were noted. HEMATOPOIETIC: No bruising. NECK: Supple, no JVD, no thyromegaly was noted. LUNGS: Clear to auscultation in all lung cuevas without rhonchi or wheezing. HEART: RRR, S1, S2 present. Peripheral pulses intact, no obvious murmurs were noted. ABDOMEN: Soft, nontender. Positive bowel sounds no organomegaly, normal bowel sounds. EXTREMITIES: Without any cyanosis, clubbing, or edema. Pedal pulses intact, Homans sign is negative. NEUROLOGIC: She IS AWARE of place and time, hospital PSYCHIATRIC: calm SKIN: No ulcerations or rashes, good skin turgor, no jaundice. VASCULAR: Good capillary refill, neurovascular bundle appears to be intact. General: Alert, Oriented X3, Cooperative, No acute distress Heart: Regular rate, Normal S1, Normal S2, No murmurs Lungs: Clear Abdomen: Normal bowel sounds, Soft, No tenderness Extremities: No cyanosis, No edema Skin: No significant lesion Labs LABS WHAT IS THE PURPOSE OF AN ADVANCE DIRECTIVE? (ALSO KNOWN A LIVING WILL OR HEALTHCARE POWER OF SUPPLY REQUIREMENTS OFFICER) To articulate and document your wishes concerning medical treatment should you lose decision-making ability. To designate an individual, known as your healthcare agent or proxy, to ensure your wishes are honored should you no longer be able to speak for yourself. This includes, among other things, making decisions about when to withhold or withdraw life-sustaining treatment. WHERE CAN I FIND AN ADVANCE DIRECTIVE FORM? The National [facility] has a list of advance directive forms for every state. We also recommend checking your state governments website for the most up-to-date forms. Find quick links to all state and territory government websites at [employer]. WHAT MUST I INCLUDE IN MY ADVANCE DIRECTIVE? The name and contact information of your healthcare agent/proxy. Answers to specific questions about your preferences for care if you become unab le to speak for yourself. The forms and questions asked vary a bit from state to state. A sample question: Do you want to receive artificially provided nutrition or hydration when you are close to and/or permanently unconscious? Names and signatures of individuals who witness your signing your advance directive, if required. Not all states require witness signatures. The signature and seal of a assistant federal public defender, if required by your state. Not all states require advance directives to be notarized. [facility] has a list of all advance directive/living will requirements by state. WHAT ELSE WOULD BE GOOD TO INCLUDE IN MY ADVANCE DIRECTIVE? Detailed information about what procedures or types of care you would like to receive and what you wish to avoid at all costs that are not covered by the questions on the form. Would you want to take advantage of all life-support technologies if it would only postpone ? Would you want to use them if you were permanently unconscious? Would you want them if you were going through an advanced progressive illness? More general statements about your values regarding end-of-life care. What does a good mean and look like to you? For that matter, what defines a life worth living? Do you define life by the intake of breath and nutrients? Is it defined by consciousness? At what point do you want to prolong it and at what point do you want to preserve resources for other people? Personal desires for body disposition in essence, what you want to happen to your body when you and plans for any memorial service(s) A list of people who cannot make healthcare decisions for you. Leave no room for ambiguity, which could lead to tensions between loved ones about your care as you are dying. HOW SHOULD I GO ABOUT IDENTIFYING MY HEALTHCARE AGENT/PROXY? An ideal person for the job is someone who: Knows you well. A spouse/partner, a family member, a close friend: all are good candidates. Excels at making difficult decisions under pressure. Is diplomatic and empathetic critical traits for balancing the needs, wants, and unpredictable emotions of a patients loved ones. Isnt afraid to ask tough questions, which invariably arise when discussing a dying individuals end-of-life care. Is easily reachable by email, phone, and/or text. Is or can easily be within physical proximity of where youre likely to receive care. Once Yadi identified this person, how do I talk to them about what care I want and dont want at the end of life? Have multiple conversations with your healthcare agent about your wishes. Take them out to tea, have them over for dinner, go to a bar or library. Talk about what you want, and make sure you are heard and understood. If you see fit, and if your agent doesnt already know this information, you can share a bit about the personalities of the people who will be most invested in your health outcomes, and how best to handle these folks in situations when emotions will be running high. This can be a serious conversation or it can be full of laughs. You get to decide how the conversation plays out. WHAT IF MY HEALTHCARE AGENT/PROXY IS UNAVAILABLE TO EXECUTE THEIR DUTIES WHEN I AM DYING? It is important to appoint an alternative agent/proxy for exactly this reason. Identify and inform that person as you did your main agent/proxy, and list them as an alternate on your advance directive form. WHAT ABOUT THE TWO WITNESSES? ARE THERE ANY SPECIAL REQUIREMENTS FOR WHO CAN AND CANT SERVE IN THIS ROLE? In most states, witnesses cannot be: Your healthcare agent or proxy; Any of your care providers; Related to you by blood, adoption, or marriage; Entitled to any portion of your estate upon your . dpoa review> 20 min to portal Laboratory Tests Test 07/02/20 20:55 07/03/20 04:05 Troponin I Quantitative < 0.017 ng/mL (0.000-0.055) White Blood Count 7.4 x10^3/uL (4.0-11.0) Red Blood Count 4.00 x10^6/uL (3.50-5.40) Hemoglobin 12.7 g/dL (12.0-15.5) Hematocrit 37.9 % (36.0-47.0) Mean Corpuscular Volume 95 fL (79-100) Mean Corpuscular Hemoglobin 32 pg (25-35) Mean Corpuscular Hemoglobin Concent 33 g/dL (31-37) Red Cell Distribution Width 15.4 % (11.5-14.5) Platelet Count 209 x10^3/uL (140-400) Neutrophils (%) (Auto) 66 % (31-73) Lymphocytes (%) (Auto) 25 % (24-48) Monocytes (%) (Auto) 7 % (0-9) Eosinophils (%) (Auto) 2 % (0-3) Basophils (%) (Auto) 1 % (0-3) Neutrophils # (Auto) 4.9 x10^3/uL (1.8-7.7) Lymphocytes # (Auto) 1.8 x10^3/uL (1.0-4.8) Monocytes # (Auto) 0.5 x10^3/uL (0.0-1.1) Eosinophils # (Auto) 0.1 x10^3/uL (0.0-0.7) Basophils # (Auto) 0.0 x10^3/uL (0.0-0.2) Sodium Level 144 mmol/L (136-145) Potassium Level 3.5 mmol/L (3.5-5.1) Chloride Level 107 mmol/L (98-107) Carbon Dioxide Level 29 mmol/L (21-32) Anion Gap 8 (6-14) Blood Urea Nitrogen 10 mg/dL (7-20) Creatinine 0.5 mg/dL (0.6-1.0) Estimated GFR (Cockcroft-Gault) 118.7 Glucose Level 73 mg/dL (70-99) Calcium Level 8.5 mg/dL (8.5-10.1) Assessment and Plan Assessmemt and Plan Problems Medical Problems: (1) AMS (altered mental status) Status: Acute (2) UTI (urinary tract infection) Status: Acute Comment Review of Relevant I have reviewed the following items luis felipe (where applicable) has been applied. Labs Laboratory Tests Test 07/02/20 10:45 07/02/20 10:50 07/02/20 11:03 07/02/20 17:00 Glucose (Fingerstick) 89 mg/dL (70-99) White Blood Count 6.1 x10^3/uL (4.0-11.0) Red Blood Count 4.50 x10^6/uL (3.50-5.40) Hemoglobin 14.1 g/dL (12.0-15.5) Hematocrit 41.5 % (36.0-47.0) Mean Corpuscular Volume 92 fL (79-100) Mean Corpuscular Hemoglobin 31 pg (25-35) Mean Corpuscular Hemoglobin Concent 34 g/dL (31-37) Red Cell Distribution Width 15.1 % (11.5-14.5) Platelet Count 234 x10^3/uL (140-400) Neutrophils (%) (Auto) 67 % (31-73) Lymphocytes (%) (Auto) 26 % (24-48) Monocytes (%) (Auto) 6 % (0-9) Eosinophils (%) (Auto) 1 % (0-3) Basophils (%) (Auto) 1 % (0-3) Neutrophils # (Auto) 4.1 x10^3/uL (1.8-7.7) Lymphocytes # (Auto) 1.6 x10^3/uL (1.0-4.8) Monocytes # (Auto) 0.4 x10^3/uL (0.0-1.1) Eosinophils # (Auto) 0.0 x10^3/uL (0.0-0.7) Basophils # (Auto) 0.0 x10^3/uL (0.0-0.2) Sodium Level 143 mmol/L (136-145) Potassium Level 3.9 mmol/L (3.5-5.1) Chloride Level 103 mmol/L (98-107) Carbon Dioxide Level 32 mmol/L (21-32) Anion Gap 8 (6-14) Blood Urea Nitrogen 11 mg/dL (7-20) Creatinine 0.6 mg/dL (0.6-1.0) Estimated GFR (Cockcroft-Gault) 96.2 BUN/Creatinine Ratio 18 (6-20) Glucose Level 83 mg/dL (70-99) Lactic Acid Level 0.6 mmol/L (0.4-2.0) Calcium Level 9.4 mg/dL (8.5-10.1) Magnesium Level 1.8 mg/dL (1.8-2.4) Total Bilirubin 0.4 mg/dL (0.2-1.0) Aspartate Amino Transf (AST/SGOT) 17 U/L (15-37) Alanine Aminotransferase (ALT/SGPT) 22 U/L (14-59) Alkaline Phosphatase 97 U/L (46-116) Creatine Kinase 15 U/L (26-192) Troponin I Quantitative < 0.017 ng/mL (0.000-0.055) < 0.017 ng/mL (0.000-0.055) PI-Arc-E-Type Natriuretic Peptide 144 pg/mL (0-449) Total Protein 6.9 g/dL (6.4-8.2) Albumin 3.3 g/dL (3.4-5.0) Albumin/Globulin Ratio 0.9 (1.0-1.7) Salicylates Level < 2.8 mg/dL (2.8-20.0) Salicylate Last Dose Date Unknown Salicylate Last Dose Time Unknown Acetaminophen Level < 2 mcg/ml (10-30) Acetaminophen Last Dose Date Unknown Acetaminophen Last Dose Time Unknown Ethyl Alcohol Level < 10 mg/dL (0-10) Urine Collection Type Unknown Urine Color Yellow Urine Clarity Clear Urine pH 7.0 (<5.0-8.0) Urine Specific Rembrandt 1.010 (1.000-1.030) Urine Protein Negative mg/dL (NEG-TRACE) Urine Glucose (UA) Negative mg/dL (NEG) Urine Ketones (Stick) Negative mg/dL (NEG) Urine Blood Negative (NEG) Urine Nitrite Positive (NEG) Urine Bilirubin Negative (NEG) Urine Urobilinogen Dipstick 0.2 mg/dL (0.2 mg/dL) Urine Leukocyte Esterase Large (NEG) Urine RBC 1-2 /HPF (0-2) Urine WBC 11-20 /HPF (0-4) Urine Squamous Epithelial Cells Few /LPF Urine Bacteria Many /HPF (0-FEW) Urine Opiates Screen Neg (NEG) Urine Methadone Screen Neg (NEG) Urine Barbiturates Neg (NEG) Urine Phencyclidine Screen Neg (NEG) Urine Amphetamine/Methamphetamine Neg (NEG) Urine Benzodiazepines Screen Neg (NEG) Urine Cocaine Screen Neg (NEG) Urine Cannabinoids Screen Neg (NEG) Urine Ethyl Alcohol Neg (NEG) Test 07/02/20 20:55 07/03/20 04:05 Troponin I Quantitative < 0.017 ng/mL (0.000-0.055) White Blood Count 7.4 x10^3/uL (4.0-11.0) Red Blood Count 4.00 x10^6/uL (3.50-5.40) Hemoglobin 12.7 g/dL (12.0-15.5) Hematocrit 37.9 % (36.0-47.0) Mean Corpuscular Volume 95 fL (79-100) Mean Corpuscular Hemoglobin 32 pg (25-35) Mean Corpuscular Hemoglobin Concent 33 g/dL (31-37) Red Cell Distribution Width 15.4 % (11.5-14.5) Platelet Count 209 x10^3/uL (140-400) Neutrophils (%) (Auto) 66 % (31-73) Lymphocytes (%) (Auto) 25 % (24-48) Monocytes (%) (Auto) 7 % (0-9) Eosinophils (%) (Auto) 2 % (0-3) Basophils (%) (Auto) 1 % (0-3) Neutrophils # (Auto) 4.9 x10^3/uL (1.8-7.7) Lymphocytes # (Auto) 1.8 x10^3/uL (1.0-4.8) Monocytes # (Auto) 0.5 x10^3/uL (0.0-1.1) Eosinophils # (Auto) 0.1 x10^3/uL (0.0-0.7) Basophils # (Auto) 0.0 x10^3/uL (0.0-0.2) Sodium Level 144 mmol/L (136-145) Potassium Level 3.5 mmol/L (3.5-5.1) Chloride Level 107 mmol/L (98-107) Carbon Dioxide Level 29 mmol/L (21-32) Anion Gap 8 (6-14) Blood Urea Nitrogen 10 mg/dL (7-20) Creatinine 0.5 mg/dL (0.6-1.0) Estimated GFR (Cockcroft-Gault) 118.7 Glucose Level 73 mg/dL (70-99) Calcium Level 8.5 mg/dL (8.5-10.1) Laboratory Tests Test 07/02/20 20:55 07/03/20 04:05 Troponin I Quantitative < 0.017 ng/mL (0.000-0.055) White Blood Count 7.4 x10^3/uL (4.0-11.0) Red Blood Count 4.00 x10^6/uL (3.50-5.40) Hemoglobin 12.7 g/dL (12.0-15.5) Hematocrit 37.9 % (36.0-47.0) Mean Corpuscular Volume 95 fL (79-100) Mean Corpuscular Hemoglobin 32 pg (25-35) Mean Corpuscular Hemoglobin Concent 33 g/dL (31-37) Red Cell Distribution Width 15.4 % (11.5-14.5) Platelet Count 209 x10^3/uL (140-400) Neutrophils (%) (Auto) 66 % (31-73) Lymphocytes (%) (Auto) 25 % (24-48) Monocytes (%) (Auto) 7 % (0-9) Eosinophils (%) (Auto) 2 % (0-3) Basophils (%) (Auto) 1 % (0-3) Neutrophils # (Auto) 4.9 x10^3/uL (1.8-7.7) Lymphocytes # (Auto) 1.8 x10^3/uL (1.0-4.8) Monocytes # (Auto) 0.5 x10^3/uL (0.0-1.1) Eosinophils # (Auto) 0.1 x10^3/uL (0.0-0.7) Basophils # (Auto) 0.0 x10^3/uL (0.0-0.2) Sodium Level 144 mmol/L (136-145) Potassium Level 3.5 mmol/L (3.5-5.1) Chloride Level 107 mmol/L (98-107) Carbon Dioxide Level 29 mmol/L (21-32) Anion Gap 8 (6-14) Blood Urea Nitrogen 10 mg/dL (7-20) Creatinine 0.5 mg/dL (0.6-1.0) Estimated GFR (Cockcroft-Gault) 118.7 Glucose Level 73 mg/dL (70-99) Calcium Level 8.5 mg/dL (8.5-10.1) Microbiology 07/02/20 Urine Culture - Preliminary, Resulted Medications Current Medications Ammonia (Aromatic Spirit) (Amoply) 1 each 1X ONCE INH Last administered on 07/02/20at 10:55; Start 07/02/20 at 11:00; Stop 07/02/20 at 11:01; Status DC Ammonia (Aromatic Spirit) (Amoply) 1 each STK-MED ONCE .ROUTE ; Start 07/02/20 at 10:54; Stop 07/02/20 at 10:54; Status DC Ceftriaxone Sodium (Rocephin) 1 gm 1X ONCE IVP Last administered on 07/02/20at 12:42; Start 07/02/20 at 12:00; Stop 07/02/20 at 12:01; Status DC Sodium Chloride 500 ml @ 500 mls/hr 1X ONCE IV Last administered on 07/02/20at 12:42; Start 07/02/20 at 12:15; Stop 07/02/20 at 13:14; Status DC Ondansetron HCl (Zofran) 4 mg PRN Q8HRS PRN IV NAUSEA/VOMITING; Start 07/02/20 at 13:00; Stop 07/03/20 at 12:59; Status DC Sodium Chloride 1,000 ml @ 100 mls/hr Q10H IV Last administered on 07/03/20at 08:23; Start 07/02/20 at 13:00; Stop 07/03/20 at 12:59; Status DC Acetaminophen (Tylenol) 650 mg PRN Q4HRS PRN PO FEVER > 100.3'F; Start 07/02/20 at 13:00; Stop 07/03/20 at 12:59; Status DC Ceftriaxone Sodium (Rocephin) 1 gm Q24H IVP Last administered on 07/03/20at 14:30; Start 07/03/20 at 13:00 Levothyroxine Sodium (Synthroid) 25 mcg DAILY06 PO ; Start 07/04/20 at 06:00 Triamterene/HCTZ (Maxzide 37.5/ 25mg) 1 tab DAILY PO ; Start 07/04/20 at 09:00 Active Scripts Active Synthroid (Levothyroxine Sodium) 25 Mcg Tablet 25 Mcg PO DAILY06 30 Days Reported Triamterene-Hctz 37.5-25 Mg Tb (Triamterene/Hydrochlorothiazid) 1 Each Tablet 1 Tab PO DAILY Vitals/I & O Vital Sign - Last 24 Hours 07/02/20 07/02/20 07/02/20 07/03/20 20:00 20:00 23:00 03:00 Temp 97.8 97.4 97.8 97.4 Pulse 77 90 Resp 16 18 B/P (MAP) 124/50 (74) 93/35 (54) Pulse Ox 94 94 O2 Delivery Room Air Room Air 07/03/20 07/03/20 07/03/20 07/03/20 07:00 08:00 10:48 14:40 Temp 97.4 97.3 97.3 97.4 97.3 97.3 Pulse 85 86 80 Resp 18 18 18 B/P (MAP) 131/62 (85) 124/48 (73) 121/65 (83) Pulse Ox 93 95 95 O2 Delivery Room Air Intake and Output 07/02/20 07/02/20 07/03/20 15:00 23:00 07:00 Intake Total 500 ml Output Total 350 ml Balance 500 ml -350 ml Justicifation of Admission Dx: Justifications for Admission: Justification of Admission Dx: Yes Sepsis: Altered Mental Status RAMIRO PEOPLES MD July 03, 2020 19:03
[2020-07-03 19:20] VITALS: BP 110/49
[2020-07-03 23:02] VITALS: BP 140/51
[2020-07-04 03:11] VITALS: BP 124/48
[2020-07-04] MEDS ORDERED: LEVOTHYROXINE 25 MCG TABLET. PO SCH (06:00)
[2020-07-04 07:09] VITALS: BP 139/56
[2020-07-04 07:24] LABS: BASO % 1 % (0-3); EOS # 0.1 x10^3/uL (0.0-0.7); EOS % 2 % (0-3); HEMATOCRIT 36.7 % (36.0-47.0); HEMOGLOBIN 12.4 g/dL (12.0-15.5); LYMPH # 1.6 x10^3/uL (1.0-4.8); LYMPH % 27 % (24-48); MEAN CORPUSCULAR HEMOGLOBIN 32 pg (25-35); MEAN CORPUSCULAR HGB CONC 34 g/dL (31-37); MEAN CORPUSCULAR VOLUME 94 fL (79-100); MONO # 0.5 x10^3/uL (0.0-1.1); MONO % 8 % (0-9); NEUT # 3.7 x10^3/uL (1.8-7.7); NEUT % 62 % (31-73); PLATELET COUNT 202 x10^3/uL (140-400); RED CELL DISTRIBUTION WIDTH 15.2 % (11.5-14.5); WHITE BLOOD COUNT 5.9 x10^3/uL (4.0-11.0)
[2020-07-04 07:44] LABS: CALCIUM 8.8 mg/dL (8.5-10.1); CREATININE 0.5 mg/dL (0.6-1.0); GFR 118.7; POTASSIUM 3.6 mmol/L (3.5-5.1)
--- NOTE | 2020-07-04 08:59 | PDOC ---
PROGRESS NOTES Date of Service: DATE: 07/04/20 TIME: 08:58 Chief Complaint Chief Complaint ASSESSMENT AND PLAN: Mental status change urinary tract infection. sepsis as evidenced by AMS, ACUTE acute metabolic encephalopathy due to sepsis morbid obesity PLAN: admitted. = empiric IV antibiotics iv fluids, home meds. DVT prophylaxis. Full code. might need long-term care or skilled. PT/OT 5- STILL NOT EATING OR DRINKING WELL, WILL CONT IV FLUIDS D/W RN PT/OT 5 alert, oriented, afebrile Mental status change improving urinary tract infection. sepsis as evidenced by AMS, ACUTE acute metabolic encephalopathy due to sepsis morbid obesity CONTINUE IV ROCEPHIN 1 GM Q 24 HRS D/W RN No acute intracranial abnormality. History of Present Illness History of Present Illness CHIEF COMPLAINT: Mental status changes. HISTORY OF PRESENT ILLNESS: The patient is a pleasant, middle-aged female, who presented to the ER with mental status change. She does live by herself. in home attached to family Her daughter lives on the same property. Her daughter states that the patient has been having some mental status change and some memory issues over the recent past. While in the ER, we noticed that she has also had a UTI. admit the patient and get her some IV antibiotics and fluids. PAST MEDICAL HISTORY: hypertension, multiple sclerosis. PAST SURGICAL HISTORY: Knee surgery. ALLERGIES: ASPARTAME, ATORVASTATIN, CHLORHEXIDINE, CODEINE. FAMILY HISTORY: Stroke. SOCIAL HISTORY: She does not drink, smoke or take drugs. She lives alone. MEDICATIONS: Reviewed. Please refer for the MRAD. REVIEW OF SYSTEMS: denies pain, soa, vomiting, is aware she was altered yesterday * 2 weeks Discharge Recommendations * [facility] 07-03 alert, oriented, afebrile Mental status change improving urinary tract infection. sepsis as evidenced by AMS, ACUTE acute metabolic encephalopathy due to sepsis morbid obesity CONTINUE IV ROCEPHIN 1 GM Q 24 HRS D/W RN Vitals Vitals Vital Signs Date Time Temp Pulse Resp B/P (MAP) Pulse Ox O2 Delivery O2 Flow Rate FiO2 07/04/20 07:40 Room Air 07/04/20 07:09 98.1 90 18 139/56 (83) 91 98.1 Physical Exam Physical Exam HEENT: Normal cephalic atraumatic, external auditory canals are patent. EYES: Extraocular muscles are intact, pupils are equally round and reactive to light and accommodation. MUSCULOSKELETAL: Well developed, well nourished, good range of motion. ENDOCRINE: No thyromegaly was palpated. LYMPHATICS: No cervical chain or axillary nodes were noted. HEMATOPOIETIC: No bruising. NECK: Supple, no JVD, no thyromegaly was noted. LUNGS: Clear to auscultation in all lung cuevas without rhonchi or wheezing. HEART: RRR, S1, S2 present. Peripheral pulses intact, no obvious murmurs were noted. ABDOMEN: Soft, nontender. Positive bowel sounds no organomegaly, normal bowel sounds. EXTREMITIES: Without any cyanosis, clubbing, or edema. Pedal pulses intact, Homans sign is negative. NEUROLOGIC: She IS AWARE of place and time, hospital PSYCHIATRIC: calm SKIN: No ulcerations or rashes, good skin turgor, no jaundice. VASCULAR: Good capillary refill, neurovascular bundle appears to be intact. General: Alert, Oriented X3, Cooperative, No acute distress Heart: Regular rate, Normal S1, Normal S2, No murmurs Lungs: Clear Abdomen: Normal bowel sounds, Soft, No tenderness Extremities: No cyanosis, No edema Skin: No significant lesion Labs LABS * Pt denies further needs Communicated Patient Care With (Name, Title) * Lizzy JACKSON; Jayshree ROSEN Goal 1 - Bed Mobility Assistance Required * Min Assistance Goal 1 Assessment * Appropriate - Continue Goal 2 - Transfers Assistance Required * Min Assistance Goal 2 - Transfer Type * Stand-Pivot Goal 2 Assessment * Appropriate - Continue Goal 3 - Ambulation Assistance Required * Min Assistance Goal 3 - Ambulation Distance * 10' Goal 3 - Ambulation Device * Roller Walker Goal 3 Assessment * Appropriate - Continue Treatment Plan * Therapeutic Exercise * Bed Mobility Training * Transfer training * Gait Training * Dynamic Balance Training Frequency of Treatment Expected * 7 visits/week Duration of Treatment Expected * 2 weeks Discharge Recommendations * Senior Living Unit Discharge Recommendation Comments * Equipment appears in place Laboratory Tests Test 07/04/20 06:05 White Blood Count 5.9 x10^3/uL (4.0-11.0) Red Blood Count 3.90 x10^6/uL (3.50-5.40) Hemoglobin 12.4 g/dL (12.0-15.5) Hematocrit 36.7 % (36.0-47.0) Mean Corpuscular Volume 94 fL (79-100) Mean Corpuscular Hemoglobin 32 pg (25-35) Mean Corpuscular Hemoglobin Concent 34 g/dL (31-37) Red Cell Distribution Width 15.2 % (11.5-14.5) Platelet Count 202 x10^3/uL (140-400) Neutrophils (%) (Auto) 62 % (31-73) Lymphocytes (%) (Auto) 27 % (24-48) Monocytes (%) (Auto) 8 % (0-9) Eosinophils (%) (Auto) 2 % (0-3) Basophils (%) (Auto) 1 % (0-3) Neutrophils # (Auto) 3.7 x10^3/uL (1.8-7.7) Lymphocytes # (Auto) 1.6 x10^3/uL (1.0-4.8) Monocytes # (Auto) 0.5 x10^3/uL (0.0-1.1) Eosinophils # (Auto) 0.1 x10^3/uL (0.0-0.7) Basophils # (Auto) 0.0 x10^3/uL (0.0-0.2) Sodium Level 145 mmol/L (136-145) Potassium Level 3.6 mmol/L (3.5-5.1) Chloride Level 108 mmol/L (98-107) Carbon Dioxide Level 29 mmol/L (21-32) Anion Gap 8 (6-14) Blood Urea Nitrogen 8 mg/dL (7-20) Creatinine 0.5 mg/dL (0.6-1.0) Estimated GFR (Cockcroft-Gault) 118.7 Glucose Level 73 mg/dL (70-99) Calcium Level 8.8 mg/dL (8.5-10.1) Assessment and Plan Assessmemt and Plan Problems Medical Problems: (1) AMS (altered mental status) Status: Acute (2) UTI (urinary tract infection) Status: Acute Comment Review of Relevant I have reviewed the following items luis felipe (where applicable) has been applied. Labs Laboratory Tests Test 07/02/20 10:45 07/02/20 10:50 07/02/20 11:03 07/02/20 17:00 Glucose (Fingerstick) 89 mg/dL (70-99) White Blood Count 6.1 x10^3/uL (4.0-11.0) Red Blood Count 4.50 x10^6/uL (3.50-5.40) Hemoglobin 14.1 g/dL (12.0-15.5) Hematocrit 41.5 % (36.0-47.0) Mean Corpuscular Volume 92 fL (79-100) Mean Corpuscular Hemoglobin 31 pg (25-35) Mean Corpuscular Hemoglobin Concent 34 g/dL (31-37) Red Cell Distribution Width 15.1 % (11.5-14.5) Platelet Count 234 x10^3/uL (140-400) Neutrophils (%) (Auto) 67 % (31-73) Lymphocytes (%) (Auto) 26 % (24-48) Monocytes (%) (Auto) 6 % (0-9) Eosinophils (%) (Auto) 1 % (0-3) Basophils (%) (Auto) 1 % (0-3) Neutrophils # (Auto) 4.1 x10^3/uL (1.8-7.7) Lymphocytes # (Auto) 1.6 x10^3/uL (1.0-4.8) Monocytes # (Auto) 0.4 x10^3/uL (0.0-1.1) Eosinophils # (Auto) 0.0 x10^3/uL (0.0-0.7) Basophils # (Auto) 0.0 x10^3/uL (0.0-0.2) Sodium Level 143 mmol/L (136-145) Potassium Level 3.9 mmol/L (3.5-5.1) Chloride Level 103 mmol/L (98-107) Carbon Dioxide Level 32 mmol/L (21-32) Anion Gap 8 (6-14) Blood Urea Nitrogen 11 mg/dL (7-20) Creatinine 0.6 mg/dL (0.6-1.0) Estimated GFR (Cockcroft-Gault) 96.2 BUN/Creatinine Ratio 18 (6-20) Glucose Level 83 mg/dL (70-99) Lactic Acid Level 0.6 mmol/L (0.4-2.0) Calcium Level 9.4 mg/dL (8.5-10.1) Magnesium Level 1.8 mg/dL (1.8-2.4) Total Bilirubin 0.4 mg/dL (0.2-1.0) Aspartate Amino Transf (AST/SGOT) 17 U/L (15-37) Alanine Aminotransferase (ALT/SGPT) 22 U/L (14-59) Alkaline Phosphatase 97 U/L (46-116) Creatine Kinase 15 U/L (26-192) Troponin I Quantitative < 0.017 ng/mL (0.000-0.055) < 0.017 ng/mL (0.000-0.055) HT-Dtr-V-Type Natriuretic Peptide 144 pg/mL (0-449) Total Protein 6.9 g/dL (6.4-8.2) Albumin 3.3 g/dL (3.4-5.0) Albumin/Globulin Ratio 0.9 (1.0-1.7) Salicylates Level < 2.8 mg/dL (2.8-20.0) Salicylate Last Dose Date Unknown Salicylate Last Dose Time Unknown Acetaminophen Level < 2 mcg/ml (10-30) Acetaminophen Last Dose Date Unknown Acetaminophen Last Dose Time Unknown Ethyl Alcohol Level < 10 mg/dL (0-10) Urine Collection Type Unknown Urine Color Yellow Urine Clarity Clear Urine pH 7.0 (<5.0-8.0) Urine Specific Channing 1.010 (1.000-1.030) Urine Protein Negative mg/dL (NEG-TRACE) Urine Glucose (UA) Negative mg/dL (NEG) Urine Ketones (Stick) Negative mg/dL (NEG) Urine Blood Negative (NEG) Urine Nitrite Positive (NEG) Urine Bilirubin Negative (NEG) Urine Urobilinogen Dipstick 0.2 mg/dL (0.2 mg/dL) Urine Leukocyte Esterase Large (NEG) Urine RBC 1-2 /HPF (0-2) Urine WBC 11-20 /HPF (0-4) Urine Squamous Epithelial Cells Few /LPF Urine Bacteria Many /HPF (0-FEW) Urine Opiates Screen Neg (NEG) Urine Methadone Screen Neg (NEG) Urine Barbiturates Neg (NEG) Urine Phencyclidine Screen Neg (NEG) Urine Amphetamine/Methamphetamine Neg (NEG) Urine Benzodiazepines Screen Neg (NEG) Urine Cocaine Screen Neg (NEG) Urine Cannabinoids Screen Neg (NEG) Urine Ethyl Alcohol Neg (NEG) Test 07/02/20 20:55 07/03/20 04:05 07/04/20 06:05 Troponin I Quantitative < 0.017 ng/mL (0.000-0.055) White Blood Count 7.4 x10^3/uL (4.0-11.0) 5.9 x10^3/uL (4.0-11.0) Red Blood Count 4.00 x10^6/uL (3.50-5.40) 3.90 x10^6/uL (3.50-5.40) Hemoglobin 12.7 g/dL (12.0-15.5) 12.4 g/dL (12.0-15.5) Hematocrit 37.9 % (36.0-47.0) 36.7 % (36.0-47.0) Mean Corpuscular Volume 95 fL (79-100) 94 fL (79-100) Mean Corpuscular Hemoglobin 32 pg (25-35) 32 pg (25-35) Mean Corpuscular Hemoglobin Concent 33 g/dL (31-37) 34 g/dL (31-37) Red Cell Distribution Width 15.4 % (11.5-14.5) 15.2 % (11.5-14.5) Platelet Count 209 x10^3/uL (140-400) 202 x10^3/uL (140-400) Neutrophils (%) (Auto) 66 % (31-73) 62 % (31-73) Lymphocytes (%) (Auto) 25 % (24-48) 27 % (24-48) Monocytes (%) (Auto) 7 % (0-9) 8 % (0-9) Eosinophils (%) (Auto) 2 % (0-3) 2 % (0-3) Basophils (%) (Auto) 1 % (0-3) 1 % (0-3) Neutrophils # (Auto) 4.9 x10^3/uL (1.8-7.7) 3.7 x10^3/uL (1.8-7.7) Lymphocytes # (Auto) 1.8 x10^3/uL (1.0-4.8) 1.6 x10^3/uL (1.0-4.8) Monocytes # (Auto) 0.5 x10^3/uL (0.0-1.1) 0.5 x10^3/uL (0.0-1.1) Eosinophils # (Auto) 0.1 x10^3/uL (0.0-0.7) 0.1 x10^3/uL (0.0-0.7) Basophils # (Auto) 0.0 x10^3/uL (0.0-0.2) 0.0 x10^3/uL (0.0-0.2) Sodium Level 144 mmol/L (136-145) 145 mmol/L (136-145) Potassium Level 3.5 mmol/L (3.5-5.1) 3.6 mmol/L (3.5-5.1) Chloride Level 107 mmol/L (98-107) 108 mmol/L (98-107) Carbon Dioxide Level 29 mmol/L (21-32) 29 mmol/L (21-32) Anion Gap 8 (6-14) 8 (6-14) Blood Urea Nitrogen 10 mg/dL (7-20) 8 mg/dL (7-20) Creatinine 0.5 mg/dL (0.6-1.0) 0.5 mg/dL (0.6-1.0) Estimated GFR (Cockcroft-Gault) 118.7 118.7 Glucose Level 73 mg/dL (70-99) 73 mg/dL (70-99) Calcium Level 8.5 mg/dL (8.5-10.1) 8.8 mg/dL (8.5-10.1) Laboratory Tests Test 07/04/20 06:05 White Blood Count 5.9 x10^3/uL (4.0-11.0) Red Blood Count 3.90 x10^6/uL (3.50-5.40) Hemoglobin 12.4 g/dL (12.0-15.5) Hematocrit 36.7 % (36.0-47.0) Mean Corpuscular Volume 94 fL (79-100) Mean Corpuscular Hemoglobin 32 pg (25-35) Mean Corpuscular Hemoglobin Concent 34 g/dL (31-37) Red Cell Distribution Width 15.2 % (11.5-14.5) Platelet Count 202 x10^3/uL (140-400) Neutrophils (%) (Auto) 62 % (31-73) Lymphocytes (%) (Auto) 27 % (24-48) Monocytes (%) (Auto) 8 % (0-9) Eosinophils (%) (Auto) 2 % (0-3) Basophils (%) (Auto) 1 % (0-3) Neutrophils # (Auto) 3.7 x10^3/uL (1.8-7.7) Lymphocytes # (Auto) 1.6 x10^3/uL (1.0-4.8) Monocytes # (Auto) 0.5 x10^3/uL (0.0-1.1) Eosinophils # (Auto) 0.1 x10^3/uL (0.0-0.7) Basophils # (Auto) 0.0 x10^3/uL (0.0-0.2) Sodium Level 145 mmol/L (136-145) Potassium Level 3.6 mmol/L (3.5-5.1) Chloride Level 108 mmol/L (98-107) Carbon Dioxide Level 29 mmol/L (21-32) Anion Gap 8 (6-14) Blood Urea Nitrogen 8 mg/dL (7-20) Creatinine 0.5 mg/dL (0.6-1.0) Estimated GFR (Cockcroft-Gault) 118.7 Glucose Level 73 mg/dL (70-99) Calcium Level 8.8 mg/dL (8.5-10.1) Microbiology 07/02/20 Urine Culture - Final, Complete 07/02/20 Antimicrobic Susceptibility - Final, Complete Medications Current Medications Ammonia (Aromatic Spirit) (Amoply) 1 each 1X ONCE INH Last administered on 07/02/20at 10:55; Start 07/02/20 at 11:00; Stop 07/02/20 at 11:01; Status DC Ammonia (Aromatic Spirit) (Amoply) 1 each STK-MED ONCE .ROUTE ; Start 07/02/20 at 10:54; Stop 07/02/20 at 10:54; Status DC Ceftriaxone Sodium (Rocephin) 1 gm 1X ONCE IVP Last administered on 07/02/20at 12:42; Start 07/02/20 at 12:00; Stop 07/02/20 at 12:01; Status DC Sodium Chloride 500 ml @ 500 mls/hr 1X ONCE IV Last administered on 07/02/20at 12:42; Start 07/02/20 at 12:15; Stop 07/02/20 at 13:14; Status DC Ondansetron HCl (Zofran) 4 mg PRN Q8HRS PRN IV NAUSEA/VOMITING; Start 07/02/20 at 13:00; Stop 07/03/20 at 12:59; Status DC Sodium Chloride 1,000 ml @ 100 mls/hr Q10H IV Last administered on 07/03/20at 08:23; Start 07/02/20 at 13:00; Stop 07/03/20 at 12:59; Status DC Acetaminophen (Tylenol) 650 mg PRN Q4HRS PRN PO FEVER > 100.3'F; Start 07/02/20 at 13:00; Stop 07/03/20 at 12:59; Status DC Ceftriaxone Sodium (Rocephin) 1 gm Q24H IVP Last administered on 07/03/20at 14:30; Start 07/03/20 at 13:00 Levothyroxine Sodium (Synthroid) 25 mcg DAILY06 PO Last administered on 07/04/20at 05:57; Start 07/04/20 at 06:00 Triamterene/HCTZ (Maxzide 37.5/ 25mg) 1 tab DAILY PO ; Start 07/04/20 at 09:00 Active Scripts Active Synthroid (Levothyroxine Sodium) 25 Mcg Tablet 25 Mcg PO DAILY06 30 Days Reported Triamterene-Hctz 37.5-25 Mg Tb (Triamterene/Hydrochlorothiazid) 1 Each Tablet 1 Tab PO DAILY Vitals/I & O Vital Sign - Last 24 Hours 07/03/20 07/03/20 07/03/20 07/03/20 10:48 14:40 19:20 20:00 Temp 97.3 97.3 97.5 97.3 97.3 97.5 Pulse 86 80 80 Resp 18 18 18 B/P (MAP) 124/48 (73) 121/65 (83) 110/49 (69) Pulse Ox 95 95 94 O2 Delivery Room Air Room Air 07/03/20 07/04/20 07/04/20 07/04/20 23:02 03:11 07:09 07:40 Temp 97.7 97.9 98.1 97.7 97.9 98.1 Pulse 85 85 90 Resp 18 18 18 B/P (MAP) 140/51 (80) 124/48 (73) 139/56 (83) Pulse Ox 94 95 91 O2 Delivery Room Air Room Air Room Air Room Air Intake and Output 07/03/20 07/03/20 07/04/20 15:00 23:00 07:00 Intake Total 360 ml Balance 360 ml Justicifation of Admission Dx: Justifications for Admission: Justification of Admission Dx: Yes Sepsis: Altered Mental Status RAMIRO PEOPLES MD July 04, 2020 08:58
[2020-07-04] MEDS ORDERED: TRIAMTERENE/HCTZ 37.5/25MG TABLET. PO SCH (09:00)
[2020-07-04 10:30] VITALS: BP 115/52
--- NOTE | 2020-07-04 10:36 | NUR ---
SW following. Discussed with RN, insurance approved SNF. Awaiting COVID result for discharge to [facility] today. Dr. Degroot notified. FLORIDALMA will continue to follow. Addendum: 07/04/20 at 1618 by KASHIF HEDRICK Negative COVID result and discharge orders faxed to [facility]. Transportation arranged for 1729. RN and daughter notified.
[2020-07-04] MEDS ORDERED: IV NORMAL SALINE 1000ML BAG 1,000 ML IV SCH (12:45)
[2020-07-04] MEDS: cefTRIAXone IV Push 1 GM VIAL. IVP SCH (13:25)
--- NOTE | 2020-07-04 14:40 | PDOC3 ---
Discharge Summary Date of Admission: July 02, 2020 Date of Discharge: July 04, 2020 Follow-Up: 1-2 days Admitting Diagnosis comment: ASSESSMENT AND PLAN: Mental status change urinary tract infection. sepsis as evidenced by AMS, ACUTE acute metabolic encephalopathy due to sepsis morbid obesity PLAN: admitted. = empiric IV antibiotics iv fluids, home meds. DVT prophylaxis. Full code. might need long-term care or skilled. PT/OT 5-05 STILL NOT EATING OR DRINKING WELL, WILL CONT IV FLUIDS D/W RN REPORTS SHE IS DRINKING AND EATING BETTER AT 14:39 TODAY PT/OT 5-05 alert, oriented, afebrile Mental status change improving urinary tract infection. sepsis as evidenced by AMS, ACUTE acute metabolic encephalopathy due to sepsis morbid obesity CONTINUE IV ROCEPHIN 1 GM Q 24 HRS D/W RN URINE CULTURE Final Final GREATER THAN 100,000 CFU/ML GRAM NEGATIVE RODS on 07/03/20 at 0737 FINAL ID= [ESCHERICHIA COLI] Testing Performed by: [address] [address] For Inquires, the Physician may contact the Microbiology department at [phone] ESCHERICHIA COLI ANTIMICROBIAL SUSCEPTIBILITY Final Comment NEG [address] ESCHERICHIA COLI ANTIBIOTIC RESULT INTERPRETATION AMPICILLIN/SULBACTAM <=4/2 S AMIKACIN <=16 S AMPICILLIN <=8 S AMOXICILLIN/K CLAVULANATE <=8/4 S AZTREONAM <=4 S CEFTRIAXONE <=1 S CEFTAZIDIME <=1 S CEFOTAXIME <=2 S CEFOXITIN <=8 S CEFAZOLIN <=2 S CIPROFLOXACIN <=0.25 S CEFEPIME <=2 S CEFUROXIME <=4 S CEFTAZIDIME/AVIBACTAM <=4 S ERTAPENEM <=0.5 S NITROFURANTOIN <=32 S GENTAMICIN <=2 S LEVOFLOXACIN <=0.5 S MEROPENEM <=1 S PIPERACILLIN/TAZOBACTAM <=8 S TRIMETHOPRIM/SULFAMETHOXAZOLE <=0.5/9.5 S TETRACYCLINE <=4 S TOBRAMYCIN <=2 S No acute intracranial abnormality. History of Present Illness History of Present Illness CHIEF COMPLAINT: Mental status changes. HISTORY OF PRESENT ILLNESS: The patient is a pleasant, middle-aged female, who presented to the ER with mental status change. She does live by herself. in home attached to family Her daughter lives on the same property. Her daughter states that the patient has been having some mental status change and some memory issues over the recent past. While in the ER, we noticed that she has also had a UTI. admit the patient and get her some IV antibiotics and fluids. PAST MEDICAL HISTORY: hypertension, multiple sclerosis. PAST SURGICAL HISTORY: Knee surgery. ALLERGIES: ASPARTAME, ATORVASTATIN, CHLORHEXIDINE, CODEINE. FAMILY HISTORY: Stroke. SOCIAL HISTORY: She does not drink, smoke or take drugs. She lives alone. MEDICATIONS: Reviewed. Please refer for the MRAD. REVIEW OF SYSTEMS: denies pain, soa, vomiting, is aware she was altered yesterday * 2 weeks Discharge Recommendations * Assisted Unit 5-04 alert, oriented, afebrile Mental status change improving urinary tract infection. sepsis as evidenced by AMS, ACUTE acute metabolic encephalopathy due to sepsis morbid obesity CONTINUE IV ROCEPHIN 1 GM Q 24 HRS D/W RN Vitals Vitals Vital Signs Date Time Temp Pulse Resp B/P (MAP) Pulse Ox O2 Delivery O2 Flow Rate FiO2 07/04/20 07:40 Room Air 07/04/20 07:09 98.1 90 18 139/56 (83) 91 98.1 Physical Exam Physical Exam HEENT: Normal cephalic atraumatic, external auditory canals are patent. EYES: Extraocular muscles are intact, pupils are equally round and reactive to light and accommodation. MUSCULOSKELETAL: Well developed, well nourished, good range of motion. ENDOCRINE: No thyromegaly was palpated. LYMPHATICS: No cervical chain or axillary nodes were noted. HEMATOPOIETIC: No bruising. NECK: Supple, no JVD, no thyromegaly was noted. LUNGS: Clear to auscultation in all lung cuevas without rhonchi or wheezing. HEART: RRR, S1, S2 present. Peripheral pulses intact, no obvious murmurs were noted. ABDOMEN: Soft, nontender. Positive bowel sounds no organomegaly, normal bowel sounds. EXTREMITIES: Without any cyanosis, clubbing, or edema. Pedal pulses intact, Homans sign is negative. NEUROLOGIC: She IS AWARE of place and time, hospital PSYCHIATRIC: calm SKIN: No ulcerations or rashes, good skin turgor, no jaundice. VASCULAR: Good capillary refill, neurovascular bundle appears to be intact. General: Alert, Oriented X3, Cooperative, No acute distress Heart: Regular rate, Normal S1, Normal S2, No murmurs Lungs: Clear Abdomen: Normal bowel sounds, Soft, No tenderness Extremities: No cyanosis, No edema Skin: No significant lesion Labs LABS * Pt denies further needs Communicated Patient Care With (Name, Title) * Lizzy JACKSON; Jayshree ROSEN Goal 1 - Bed Mobility Assistance Required * Min Assistance Goal 1 Assessment * Appropriate - Continue Goal 2 - Transfers Assistance Required * Min Assistance Goal 2 - Transfer Type * Stand-Pivot Goal 2 Assessment * Appropriate - Continue Goal 3 - Ambulation Assistance Required * Min Assistance Goal 3 - Ambulation Distance * 10' Goal 3 - Ambulation Device * Roller Walker Goal 3 Assessment * Appropriate - Continue Treatment Plan * Therapeutic Exercise * Bed Mobility Training * Transfer training * Gait Training * Dynamic Balance Training Frequency of Treatment Expected * 7 visits/week Duration of Treatment Expected * 2 weeks Discharge Recommendations * Assisted Unit Discharge Recommendation Comments * Equipment appears in place FINAL DIAGNOSIS Problems Medical Problems: (1) AMS (altered mental status) Status: Acute (2) UTI (urinary tract infection) Status: Acute Brief Hospital Course Ms. Hills is a 80 old [sex] who presented with [AMS, UTI] CONDITION AT DISCHARGE: Improved Discharge Medications Current Medications Ammonia (Aromatic Spirit) (Amoply) 1 each 1X ONCE INH Last administered on 07/02/20at 10:55; Start 07/02/20 at 11:00; Stop 07/02/20 at 11:01; Status DC Ammonia (Aromatic Spirit) (Amoply) 1 each STK-MED ONCE .ROUTE ; Start 07/02/20 at 10:54; Stop 07/02/20 at 10:54; Status DC Ceftriaxone Sodium (Rocephin) 1 gm 1X ONCE IVP Last administered on 07/02/20at 12:42; Start 07/02/20 at 12:00; Stop 07/02/20 at 12:01; Status DC Sodium Chloride 500 ml @ 500 mls/hr 1X ONCE IV Last administered on 07/02/20at 12:42; Start 07/02/20 at 12:15; Stop 07/02/20 at 13:14; Status DC Ondansetron HCl (Zofran) 4 mg PRN Q8HRS PRN IV NAUSEA/VOMITING; Start 07/02/20 at 13:00; Stop 07/03/20 at 12:59; Status DC Sodium Chloride 1,000 ml @ 100 mls/hr Q10H IV Last administered on 07/03/20at 08:23; Start 07/02/20 at 13:00; Stop 07/03/20 at 12:59; Status DC Acetaminophen (Tylenol) 650 mg PRN Q4HRS PRN PO FEVER > 100.3'F; Start 07/02/20 at 13:00; Stop 07/03/20 at 12:59; Status DC Ceftriaxone Sodium (Rocephin) 1 gm Q24H IVP Last administered on 07/04/20at 13:25; Start 07/03/20 at 13:00 Levothyroxine Sodium (Synthroid) 25 mcg DAILY06 PO Last administered on 07/04/20at 05:57; Start 07/04/20 at 06:00 Triamterene/HCTZ (Maxzide 37.5/ 25mg) 1 tab DAILY PO Last administered on 07/04/20at 09:48; Start 07/04/20 at 09:00 Lactobacillus Rhamnosus (Culturelle) 1 cap BID PO ; Start 07/04/20 at 21:00 Sodium Chloride 1,000 ml @ 75 mls/hr [id number] IV Last administered on 07/04/20at 13:26; Start 07/04/20 at 12:45 Active Scripts Active Synthroid (Levothyroxine Sodium) 25 Mcg Tablet 25 Mcg PO DAILY06 30 Days Reported Triamterene-Hctz 37.5-25 Mg Tb (Triamterene/Hydrochlorothiazid) 1 Each Tablet 1 Tab PO DAILY Vital Signs Vital Signs Date Time Temp Pulse Resp B/P (MAP) Pulse Ox O2 Delivery O2 Flow Rate FiO2 07/04/20 10:30 98.3 91 18 115/52 (73) 93 Room Air 98.3 Labs Laboratory Tests Test 07/02/20 17:00 07/02/20 20:55 07/03/20 04:05 07/03/20 11:27 Troponin I Quantitative < 0.017 ng/mL (0.000-0.055) < 0.017 ng/mL (0.000-0.055) White Blood Count 7.4 x10^3/uL (4.0-11.0) Red Blood Count 4.00 x10^6/uL (3.50-5.40) Hemoglobin 12.7 g/dL (12.0-15.5) Hematocrit 37.9 % (36.0-47.0) Mean Corpuscular Volume 95 fL (79-100) Mean Corpuscular Hemoglobin 32 pg (25-35) Mean Corpuscular Hemoglobin Concent 33 g/dL (31-37) Red Cell Distribution Width 15.4 % (11.5-14.5) Platelet Count 209 x10^3/uL (140-400) Neutrophils (%) (Auto) 66 % (31-73) Lymphocytes (%) (Auto) 25 % (24-48) Monocytes (%) (Auto) 7 % (0-9) Eosinophils (%) (Auto) 2 % (0-3) Basophils (%) (Auto) 1 % (0-3) Neutrophils # (Auto) 4.9 x10^3/uL (1.8-7.7) Lymphocytes # (Auto) 1.8 x10^3/uL (1.0-4.8) Monocytes # (Auto) 0.5 x10^3/uL (0.0-1.1) Eosinophils # (Auto) 0.1 x10^3/uL (0.0-0.7) Basophils # (Auto) 0.0 x10^3/uL (0.0-0.2) Sodium Level 144 mmol/L (136-145) Potassium Level 3.5 mmol/L (3.5-5.1) Chloride Level 107 mmol/L (98-107) Carbon Dioxide Level 29 mmol/L (21-32) Anion Gap 8 (6-14) Blood Urea Nitrogen 10 mg/dL (7-20) Creatinine 0.5 mg/dL (0.6-1.0) Estimated GFR (Cockcroft-Gault) 118.7 Glucose Level 73 mg/dL (70-99) Calcium Level 8.5 mg/dL (8.5-10.1) SARS-CoV-2 RNA (FRANCESCO) Negative (Negative) Test 07/04/20 06:05 White Blood Count 5.9 x10^3/uL (4.0-11.0) Red Blood Count 3.90 x10^6/uL (3.50-5.40) Hemoglobin 12.4 g/dL (12.0-15.5) Hematocrit 36.7 % (36.0-47.0) Mean Corpuscular Volume 94 fL (79-100) Mean Corpuscular Hemoglobin 32 pg (25-35) Mean Corpuscular Hemoglobin Concent 34 g/dL (31-37) Red Cell Distribution Width 15.2 % (11.5-14.5) Platelet Count 202 x10^3/uL (140-400) Neutrophils (%) (Auto) 62 % (31-73) Lymphocytes (%) (Auto) 27 % (24-48) Monocytes (%) (Auto) 8 % (0-9) Eosinophils (%) (Auto) 2 % (0-3) Basophils (%) (Auto) 1 % (0-3) Neutrophils # (Auto) 3.7 x10^3/uL (1.8-7.7) Lymphocytes # (Auto) 1.6 x10^3/uL (1.0-4.8) Monocytes # (Auto) 0.5 x10^3/uL (0.0-1.1) Eosinophils # (Auto) 0.1 x10^3/uL (0.0-0.7) Basophils # (Auto) 0.0 x10^3/uL (0.0-0.2) Sodium Level 145 mmol/L (136-145) Potassium Level 3.6 mmol/L (3.5-5.1) Chloride Level 108 mmol/L (98-107) Carbon Dioxide Level 29 mmol/L (21-32) Anion Gap 8 (6-14) Blood Urea Nitrogen 8 mg/dL (7-20) Creatinine 0.5 mg/dL (0.6-1.0) Estimated GFR (Cockcroft-Gault) 118.7 Glucose Level 73 mg/dL (70-99) Calcium Level 8.8 mg/dL (8.5-10.1) Laboratory Tests Test 07/04/20 06:05 White Blood Count 5.9 x10^3/uL (4.0-11.0) Red Blood Count 3.90 x10^6/uL (3.50-5.40) Hemoglobin 12.4 g/dL (12.0-15.5) Hematocrit 36.7 % (36.0-47.0) Mean Corpuscular Volume 94 fL (79-100) Mean Corpuscular Hemoglobin 32 pg (25-35) Mean Corpuscular Hemoglobin Concent 34 g/dL (31-37) Red Cell Distribution Width 15.2 % (11.5-14.5) Platelet Count 202 x10^3/uL (140-400) Neutrophils (%) (Auto) 62 % (31-73) Lymphocytes (%) (Auto) 27 % (24-48) Monocytes (%) (Auto) 8 % (0-9) Eosinophils (%) (Auto) 2 % (0-3) Basophils (%) (Auto) 1 % (0-3) Neutrophils # (Auto) 3.7 x10^3/uL (1.8-7.7) Lymphocytes # (Auto) 1.6 x10^3/uL (1.0-4.8) Monocytes # (Auto) 0.5 x10^3/uL (0.0-1.1) Eosinophils # (Auto) 0.1 x10^3/uL (0.0-0.7) Basophils # (Auto) 0.0 x10^3/uL (0.0-0.2) Sodium Level 145 mmol/L (136-145) Potassium Level 3.6 mmol/L (3.5-5.1) Chloride Level 108 mmol/L (98-107) Carbon Dioxide Level 29 mmol/L (21-32) Anion Gap 8 (6-14) Blood Urea Nitrogen 8 mg/dL (7-20) Creatinine 0.5 mg/dL (0.6-1.0) Estimated GFR (Cockcroft-Gault) 118.7 Glucose Level 73 mg/dL (70-99) Calcium Level 8.8 mg/dL (8.5-10.1) Allergies Allergies Coded Allergies Type Severity Reaction Last Updated Verified chlorhexidine Allergy Intermediate Rash 12/30/13 Yes codeine Allergy Intermediate RASH AND ITCHING 12/30/13 Yes aspartame Adverse Reaction Severe WEAKNESS IN LEGS 12/30/13 Yes atorvastatin Adverse Reaction Severe MYALGIA/LEG WEAKNESS 12/30/13 Yes Disposition/Orders: Other (D/C TO SNF) Justicifation of Admission Dx: Justifications for Admission: Justification of Admission Dx: Yes Sepsis: Altered Mental Status RAMIRO PEOPLES MD July 04, 2020 14:40
[2020-07-04] MEDS ORDERED: LACT1CAP19 PO (14:41)
[2020-07-04] MEDS ORDERED: AMOX1TAB25 PO (14:41)
--- NOTE | 2020-07-04 14:42 | SNU/HH DC ---
DISCHARGE ORDERS DISCHARGE INFORMATION: DISCHARGE DATE: July 04, 2020 FINAL DIAGNOSIS Problems Medical Problems: (1) AMS (altered mental status) Status: Acute (2) UTI (urinary tract infection) Status: Acute CONDITION ON DISCHARGE: Stable CODE STATUS: Code Status: Full CARE HOME: SNF STAY <30 DAYS: Yes HOSPICE: HOSPICE: No HOSPICE EVAL & TREAT: No LTAC: ADMIT TO LTAC: No POST DISCHARGE ORDERS: ACTIVITY ORDERS: Activity as tolerated WEIGHT BEARING STATUS: Full weight bearing BATHING ORDERS: Shower-keep dressing dry DIET AFTER DISCHARGE: Cardiac WOUND/INCISION CARE: Ice to area for comfort, Do not change dressing CHECKS AFTER DISCHARGE: CHECKS AFTER DISCHARGE: Check blood press - daily FOLLOW-UP: PHYSICIAN FOLLOW-UP: PCP AT SNF TODAY TREATMENT/EQUIPMENT ORDERS: ADAPTIVE EQUIPMENT NEEDED: Front wheeled walker, Walker Physical Therapy For: Evalulation/Treatment Occupational Therapy For: Evaluation/Treatment Speech Language Pathology For: Evaluation/Treatment DISCHARGE MEDICATIONS: Home Meds Active Scripts Levothyroxine Sodium (SYNTHROID) 25 Mcg Tablet, 25 MCG PO DAILY06 for THYROID for 30 Days, #30 TAB Prov:RAMIRO PEOPLES MD 01/27/19 Reported Medications Triamterene/Hydrochlorothiazid (TRIAMTERENE-HCTZ 37.5-25 MG TB) 1 Each Tablet, 1 TAB PO DAILY for bp, #30 TAB 5 Refills 07/02/20 RAMIRO PEOPLES MD July 04, 2020 14:42
[2020-07-04 14:48] VITALS: BP 142/63
--- NOTE | 2020-07-04 16:26 | NUR ---
Called and gave report to Jayson Oliveros [place].
--- NOTE | 2020-07-04 19:03 | NUR ---
Pt discharging to [facility]. IV removed. Belongings packed including cell phone and credit card specialist and sent with transportation. Pt assisted to wheelchair and was taken by transportation.
[2020-07-04] MEDS ORDERED: LACTOBACILLUS RHAMNOSUS GG 1 CAPSULE. PO SCH (21:00)
== END 2020-07-04 19:05 | DRG 871 ==
LOC: ER 10:41 → ED HOLD 12:48 → 4 NORTH 15:47
PROVIDERS: ADMIT Internal Medicine; ATTEND Internal Medicine
DX: A41.9 Sepsis, unspecified organism (principal); G93.41 Metabolic encephalopathy; N39.0 Urinary tract infection, site not specified; E66.01 Morbid (severe) obesity due to excess calories; G35 Multiple sclerosis; I10 Essential (primary) hypertension; F41.9 Anxiety disorder, unspecified; Z20.822 Contact with and (suspected) exposure to COVID-19; Z68.34 Body mass index [BMI] 34.0-34.9, adult; Z82.3 Family history of stroke; Z88.5 Allergy status to narcotic agent; Z88.8 Allergy status to other drugs, medicaments and biological substances
CPT/HCPCS: 36415; 70450; 72125; 80048; 80053; 80307; 80329; 81001; 82550; 82962; 83605; 83735; 83880; 84484; 85025; 87077; 87086; 87186; 93005; 96361; 96374; G0480; J0696; J7030; J7040; U0003; U0005; 97530-GP; 97535-GO; 99285-25; G0378

== ENCOUNTER 2021-06-02 16:30 | Inpatient (IN) | payer BC ==
[~2021-06-02] VITALS: Ht 134.6 cm; Wt 97.8 kg
[~2021-06-02 16:30] MED LIST changes: +AMOX1TAB25 PO; +LACT1CAP19 PO; +TRIA1TAB3 PO
[2021-06-02] MEDS ORDERED: IV NORMAL SALINE 500ML BAG 250 ML IV ONE ×2 (19:30→22:15)
[2021-06-02] MEDS ORDERED: ONDANSETRON PF 4 MG/2 ML VIAL. IVP ONE (19:30)
[2021-06-02] MEDS ORDERED: ACETAMINOPHEN 500 MG TABLET PO ONE (19:30)
[2021-06-02] MEDS ORDERED: LIDO:MAALOX 1:1 20 ML SINGLE DOSE. SWSW ONE (19:30)
[2021-06-02] MEDS ORDERED: cefTRIAXone IV Push 1 GM VIAL. IVP ONE (19:45)
[2021-06-02 20:01] LABS: BASO % 0 % (0-3); EOS % 1 % (0-3); HEMATOCRIT 40.5 % (36.0-47.0); HEMOGLOBIN 13.7 g/dL (12.0-15.5); LYMPH # 1.3 x10^3/uL (1.0-4.8); LYMPH % 23 % (24-48); MEAN CORPUSCULAR HEMOGLOBIN 31 pg (25-35); MEAN CORPUSCULAR HGB CONC 34 g/dL (31-37); MEAN CORPUSCULAR VOLUME 91 fL (79-100); MONO # 0.3 x10^3/uL (0.0-1.1); MONO % 6 % (0-9); NEUT # 3.9 x10^3/uL (1.8-7.7); NEUT % 71 % (31-73); PLATELET COUNT 205 x10^3/uL (140-400); RED BLOOD COUNT 4.44 x10^6/uL (3.50-5.40); RED CELL DISTRIBUTION WIDTH 14.9 % (11.5-14.5); WHITE BLOOD COUNT 5.5 x10^3/uL (4.0-11.0)
--- NOTE | 2021-06-02 20:02 | PHYS DOC ---
Past Medical History Past Medical History: Hypertension Additional Past Medical Histor: multiple sclerosis Past Surgical History: Other Additional Past Surgical Histo: knee Smoking Status: Former Smoker Alcohol Use: None Drug Use: None Adult General Chief Complaint Chief Complaint: PAIN ON URINATION HPI HPI The patient is an 81-year-old female with a history of hypertension, hyperlipidemia, hypothyroidism, multiple sclerosis and morbid obesity. She uses a motorized wheelchair and transfers herself at baseline. She [place] at home in the [place] in [place] own house [place] the [place] with younger family. Ms. Hills presents for evaluation of about 2 weeks of not feeling well. Dysuria was her only initial symptom but over the past week or so she has felt increasingly weak/fatigued and over the past couple of days has become progressively more confused. About 5 days ago patient's daughter brought a urine sample to her doctor's office; this was positive for evidence of UTI and the patient was empirically started on a cephalosporin antibiotic which she has been taking. However, she has not felt better and has in fact felt worse over t he past few days. Associated nausea. Associated diminished oral intake over the past few days. Associated generalized abdominal discomfort which seems worst in the upper quadrants. No associated fevers, vomiting, focal or lateralizing weakness, numbness or tingling new or different than usual (patient endorses some baseline numbness and tingling from her MS), neck stiffness/pain/meningismus, vision changes, upper respiratory congestion/rhinorrhea, cough, sore throat, shortness of breath or chest pain of any kind, flank pain, midline back pain, hematuria, polyuria or oliguria, changes in bowel habits, pain or swelling to arms or legs worse than usual (patient endorses some baseline lower extremity edema which is not worse than usual today). Patient is alert, moves all extremities equally, and answers questions generally somewhat appropriately but tends to lose her train of thought in the middle of sentences which daughter states is not normal for her. Vital signs are appropriate here and the patient is in no acute distress. Review of Systems Review of Systems A 12 point review of systems was completed and was negative except where noted in HPI above. Current Medications Current Medications Current Medications Medications (Trade) Dose Ordered Sig/Forest Start Time Stop Time Status Last Admin Dose Admin Acetaminophen (Tylenol) 1,000 mg 1X ONCE 06/02/21 19:30 06/02/21 19:38 DC 06/02/21 20:11 1,000 MG Ceftriaxone Sodium (Rocephin) 1 gm 1X ONCE 06/02/21 19:45 06/02/21 19:46 DC 06/02/21 20:08 1 GM Iohexol (Omnipaque 300 Mg/ml) 75 ml 1X ONCE 06/02/21 20:45 06/02/21 20:46 DC 06/02/21 21:07 75 ML Multi-Ingredient Mouthwash/Gargle (Gi Cocktail) 20 ml 1X ONCE 06/02/21 19:30 06/02/21 19:38 DC 06/02/21 20:10 20 ML Ondansetron HCl (Zofran) 4 mg 1X ONCE 06/02/21 19:30 06/02/21 19:38 DC 06/02/21 20:11 4 MG Sodium Chloride 250 ml @ 500 mls/hr 1X ONCE 06/02/21 19:30 06/02/21 19:59 DC 06/02/21 20:08 500 MLS/HR Allergies Allergies Allergies Coded Allergies Type Severity Reaction Last Updated Verified chlorhexidine Allergy Intermediate Rash 12/30/13 Yes codeine Allergy Intermediate RASH AND ITCHING 12/30/13 Yes aspartame Adverse Reaction Severe WEAKNESS IN LEGS 12/30/13 Yes atorvastatin Adverse Reaction Severe MYALGIA/LEG WEAKNESS 12/30/13 Yes Physical Exam Physical Exam 81-year-old female appearing nontoxic and in no acute distress. Head is normocephalic and atraumatic. Neck is supple and nontender. Oropharynx is moist. Lungs are clear to auscultation at all stations. There is a normal S1 and S2 without rubs or gallops and capillary refill is appropriate, less than 2 seconds globally. Abdomen is soft, nondistended and with mild bilateral upper quadrant tenderness to palpation without rebound or guarding. Some mild suprapubic tenderness to palpation as well. No pulsatile mass. No obvious organomegaly. Skin is warm and dry without cyanosis, clubbing or edema. Psychiatrically, the patient demonstrates appropriate mood and affect and is alert. Evaluation of the extremities reveals BUEs and BLEs neurovascularly intact distally with strength out of 5, sensation intact light touch in all nerve distributions, radial, DP and PT pulses 2+ and equal bilaterally, capillary refill less than 2 seconds, hands and feet warm and well-perfused. 2+ pitting edema of the bilateral lower extremities below the levels of the knees, normal for the patient per her and her daughter. No calf tenderness or swelling bilaterally. Maria Elena's test is negative bilaterally. No erythema, warmth, swelling or discomfort with ranging of any joint of the BUEs or BLEs. No skin breakdown to the back or to the groin. Neurologically, patient moves all extremities equally, is alert and oriented x4 and no lateralizing deficits are seen. Patient is a little slow to answer some questions. Current Patient Data Lab Values Laboratory Tests Test 06/02/21 19:45 06/02/21 20:00 White Blood Count 5.5 x10^3/uL (4.0-11.0) Red Blood Count 4.44 x10^6/uL (3.50-5.40) Hemoglobin 13.7 g/dL (12.0-15.5) Hematocrit 40.5 % (36.0-47.0) Mean Corpuscular Volume 91 fL (79-100) Mean Corpuscular Hemoglobin 31 pg (25-35) Mean Corpuscular Hemoglobin Concent 34 g/dL (31-37) Red Cell Distribution Width 14.9 % (11.5-14.5) H Platelet Count 205 x10^3/uL (140-400) Neutrophils (%) (Auto) 71 % (31-73) Lymphocytes (%) (Auto) 23 % (24-48) L Monocytes (%) (Auto) 6 % (0-9) Eosinophils (%) (Auto) 1 % (0-3) Basophils (%) (Auto) 0 % (0-3) Neutrophils # (Auto) 3.9 x10^3/uL (1.8-7.7) Lymphocytes # (Auto) 1.3 x10^3/uL (1.0-4.8) Monocytes # (Auto) 0.3 x10^3/uL (0.0-1.1) Eosinophils # (Auto) 0.0 x10^3/uL (0.0-0.7) Basophils # (Auto) 0.0 x10^3/uL (0.0-0.2) Sodium Level 132 mmol/L (136-145) L Potassium Level 4.1 mmol/L (3.5-5.1) Chloride Level 95 mmol/L (98-107) L Carbon Dioxide Level 31 mmol/L (21-32) Anion Gap 6 (6-14) Blood Urea Nitrogen 10 mg/dL (7-20) Creatinine 0.5 mg/dL (0.6-1.0) L Estimated GFR (Cockcroft-Gault) 118.4 BUN/Creatinine Ratio 20 (6-20) Glucose Level 90 mg/dL (70-99) Lactic Acid Level 0.4 mmol/L (0.4-2.0) Calcium Level 9.9 mg/dL (8.5-10.1) Total Bilirubin 0.4 mg/dL (0.2-1.0) Aspartate Amino Transferase (AST) 22 U/L (15-37) Alanine Aminotransferase (ALT) 24 U/L (14-59) Alkaline Phosphatase 93 U/L (46-116) Troponin I High Sensitivity 11 ng/L (4-50) AY-Esj-I-Type Natriuretic Peptide 61 pg/mL (0-449) Total Protein 7.7 g/dL (6.4-8.2) Albumin 3.5 g/dL (3.4-5.0) Albumin/Globulin Ratio 0.8 (1.0-1.7) L Lipase 205 U/L (73-393) Salicylates Level 1.8 mg/dL (2.8-20.0) L Salicylate Last Dose Date Salicylate Last Dose Time Acetaminophen Level < 2 mcg/ml (10-30) L Acetaminophen Last Dose Date Acetaminophen Last Dose Time Ethyl Alcohol Level < 10 mg/dL (0-10) Urine Collection Type U cath Urine Color (Auto) Colorless Urine Turbidity Clear Urine pH (Auto) 5.5 (<5.0-8.0) Urine Specific Belt 1.009 (1.000-1.030) Urine Protein (Auto) Negative mg/dL (Negative) Urine Glucose (Auto)(UA) Negative mg/dL (Negative) Urine Ketones (Auto) 10 mg/dL (Negative) Urine Blood (Auto) Negative (Negative) Urine Nitrite Negative (Negative) Urine Bilirubin (Auto) Negative (Negative) Urine Urobilinogen (Auto) Normal mg/dL (Normal) Urine Leukocyte Esterase (Auto) Negative (Negative) Urine RBC 0 /HPF (0-2) Urine WBC Occ /HPF (0-4) Urine Squamous Epithelial Cells Mod /LPF Urine Amorphous Sediment Present /HPF Urine Bacteria 0 /HPF (0-FEW) Urine Mucus Slight /LPF Urine Opiates Screen Neg (NEG) Urine Methadone Screen Neg (NEG) Urine Barbiturates Neg (NEG) Urine Phencyclidine Screen Neg (NEG) Urine Amphetamine/Methamphetamine Neg (NEG) Urine Benzodiazepines Screen Neg (NEG) Urine Cocaine Screen Neg (NEG) Urine Cannabinoids Screen Neg (NEG) Urine Ethyl Alcohol Neg (NEG) Laboratory Tests 06/02/21 19:45 Laboratory Tests 06/02/21 19:45 EKG EKG Sinus rhythm, rate 63, no acute ST elevation or depression, FL 126, QRS 116, QTc 437, EP interpretation. Nonischemic tracing, intervals appropriate. Radiology/Procedures Radiology/Procedures EXAM: CT Abdomen and Pelvis with IV contrast CLINICAL HISTORY: Reason: upper abd pain / Spl. Instructions: omni 300 75ml / History: . COMPARISON: 01/24/2019 TECHNIQUE: Helical CT of the abdomen and pelvis was performed following the administration of intravenous contrast. Axial, coronal and sagittal reformatted images were generated. PQRS compliance statement - One or more of the following individualized dose reduction techniques were utilized for this study: 1. Automated exposure control 2. Adjustment of the mA and/or kV according to patient size 3. Use of iterative reconstruction technique FINDINGS: Lower Chest: Visualized lung bases are clear. Heart size is normal. No pericardial effusion Abdomen and Pelvis: The liver, gallbladder, spleen, adrenals, and pancreas are unremarkable. No perinephric inflammation or hydronephrosis. Subcentimeter hypodensity in the s uperior pole of the right kidney, similar to prior favoring a benign cyst. Stomach is decompressed accentuating wall thickness. No evidence of obstruction scattered colonic diverticulosis without diverticulitis. Appendix is normal. No free intra-abdominal air or free fluid. No pathologically enlarged abdominal or pelvic adenopathy. Scattered antibiotic atherosclerotic disease. No aneurysmal dilation. Urinary bladder is unremarkable. Unremarkable uterus is present. No suspicious adnexal masses. Anterior abdominal wall is unremarkable. Tiny periumbilical fat- containing hernia. No suspicious osseous lesions or acute fractures. IMPRESSION: 1. Nonspecific mild gastric wall thickening may be due to underdistention or gastritis. 2. Otherwise, no evidence of acute process in the abdomen or pelvis. 3. Colonic diverticulosis without diverticulitis. Electronically signed by: Mary De Jesus DO (06/02/2021 9:16 PM) [facility] DICTATED and SIGNED BY: MARY DE JESUS DO DATE: 06/02/212110 CT HEAD/BRAIN WO Date: 06/02/2021 7:36 PM Clinical Indication: confusion Comparison: 07/02/2020. Technique: 5 mm axial tomographic images were obtained of the head without contrast. These were viewed on brain and bone windows. One or more of the following dose reduction techniques were utilized: Automated exposure control (AEC), Adjustment of mA and/or kV according to patient size, Use of iterative reconstruction technique such as ASiR, CT scan done according to ALARA and image gently/image wisely Findings: Mild generalized cerebral and cerebellar volume loss. Mild nonspecific periventricular hypoattenuation, most commonly seen with chronic small vessel ischemic disease. Calcified atherosclerosis of the bilateral cavernous and para clinoid internal carotid arteries and intracranial vertebral arteries. No intra- or extra-axial mass or fluid collection. No acute hemorrhage. The ventricles are normal in size, shape, and morphology. The nolasco-white matter junction is normal. The subarachnoid cisterns are patent. The visualized paranasal sinuses are normal. The visualized portions of the orbits and globes are normal. The mastoid air cells are clear. The manager local topogram shows no lytic lesion or fracture. Impression: No acute intracranial process. Mild cerebral volume loss. Mild chronic small vessel ischemic disease. Electronically signed by: Estevan Trujillo MD (06/02/2021 9:14 PM) [facility] DICTATED and SIGNED BY: ESTEVAN TRUJILLO MD DATE: 06/02/212112 EXAMINATION: Chest radiograph. VIEWS: Single AP view of the chest COMPARISON: 01/24/2019 INDICATION:81 years, Female, weakness. FINDINGS: Normal cardiomediastinal silhouette. No focal consolidation. No pleural effusion or pneumothorax. Similar scattered benign calcified granulomas. Calcified med iastinal lymph nodes No acute osseous process. IMPRESSION: No acute cardiopulmonary process. Electronically signed by: Mary De Jesus DO (06/02/2021 8:35 PM) [facility] DICTATED and SIGNED BY: MARY DE JESUS DO DATE: 06/02/212033 Course & Med Decision Making Course & Med Decision Making Generally well-appearing 81-year-old female with appropriate vital signs here for evaluation of symptoms which seem most likely to reflect treatment failure of urinary tract infection with outpatient oral antibiotics. Given the multipli city of symptoms the patient seems to have been having however we will evaluate for other life threats with work-up as noted and will then reevaluate. We will give some empiric Rocephin after cultures, a small fluid bolus, a GI cocktail given epigastric discomfort patient reports right now, and some Tylenol. Update: Large work-up as above is very benign. Urinalysis is negative, as expected given recent antibiotic therapy; nevertheless, based on symptoms at home, suspect continuing issues from partially treated UTI. Patient is feeling quite a bit better on reassessment after fluids and medications. Given the multiplicity of symptoms that the patient has had at home, as well as advanced a ge, comorbidities and family concern, seems reasonable to admit for IV antibiotics and further care. Dr. Gill graciously accepts. May be sensible to contact PCPs office in the morning to ascertain whether or not the patient's primary doctor sent a urine culture when her urine was tested before antibiotics were started. Dragon Disclaimer Dragon Disclaimer This electronic medical record was generated, in whole or in part, using a voice recognition dictation system. Departure Departure Impression: Primary Impression: Other fatigue Additional Impressions: Acute metabolic encephalopathy Acute cystitis Disposition: ADMITTED INPATIENT Condition: STABLE Referrals: MARISOL RODRÍGUEZ MD (PCP) Problem Qualifiers Additional Impressions: Acute cystitis Hematuria presence: without hematuria Qualified Codes: N30.00 - Acute cystitis without hematuria CHERIE TAYLOR MD Jun 02, 2021 20:02
[2021-06-02 20:18] LABS: BACTERIA,URINE 0 /HPF (0-FEW); RBC,URINE 0 /HPF (0-2); WBC,URINE OCC /HPF (0-4)
[2021-06-02 20:19] LABS: AMORPHOUS SEDIMENT,UR PRESENT /HPF
[2021-06-02 20:19] LABS: CALCIUM 9.9 mg/dL (8.5-10.1); CREATININE 0.5 mg/dL (0.6-1.0); GFR 118.4; POTASSIUM 4.1 mmol/L (3.5-5.1)
[2021-06-02 20:21] LABS: BARBITURATES NEG (NEG); BENZODIAZEPINES NEG (NEG); CANNABINOIDS NEG (NEG); COCAINE NEG (NEG); METHADONE NEG (NEG); OPIATES NEG (NEG); PHENCYCLIDINE NEG (NEG)
[2021-06-02 20:22] LABS: ACETAMIN < 2 mcg/ml (10-30); ETHANOL < 10 mg/dL (0-10); SALIC 1.8 mg/dL (2.8-20.0)
[2021-06-02 20:22] LABS: AMPHETAMINE/METHAMPHETAMINE NEG (NEG)
[2021-06-02 20:31] LABS: ALBUMIN 3.5 g/dL (3.4-5.0); ALBUMIN/GLOBULIN RATIO 0.8 (1.0-1.7); TOTAL BILIRUBIN 0.4 mg/dL (0.2-1.0); TOTAL PROTEIN 7.7 g/dL (6.4-8.2)
--- NOTE | 2021-06-02 20:38 | RAD ---
EXAMINATION: Chest radiograph. VIEWS: Single AP view of the chest COMPARISON: 01/24/2019 INDICATION:81 years, Female, weakness. FINDINGS: Normal cardiomediastinal silhouette. No focal consolidation. No pleural effusion or pneumothorax. Sim ilar scattered benign calcified granulomas. Calcified mediastinal lymph nodes No acute osseous proces s. IMPRESSION: No acute cardiopulmonary process. Electronically signed by: Zechariah De Jesus DO (06/02/2021 8:35 PM) [facility]
[2021-06-02] MEDS ORDERED: IOHEXOL 300 MG/ML 100ML VIAL. IV ONE (20:45)
--- NOTE | 2021-06-02 21:16 | RAD ---
CT HEAD/BRAIN WO Date: 06/02/2021 7:36 PM Clinical Indication: confusion Comparison: 07/02/2020. Technique: 5 mm axial tomographic images were obtained of the head without contrast. These were view ed on brain and bone windows. One or more of the following dose reduction techniques were utilized: A utomated exposure control (AEC), Adjustment of mA and/or kV according to patient size, Use of iterati ve reconstruction technique such as ASiR, CT scan done according to ALARA and image gently/image joiner ly Findings: Mild generalized cerebral and cerebellar volume loss. Mild nonspecific periventricular hypoattenuatio n, most commonly seen with chronic small vessel ischemic disease. Calcified atherosclerosis of the bi lateral cavernous and paraclinoid internal carotid arteries and intracranial vertebral arteries. No intra- or extra-axial mass or fluid collection. No acute hemorrhage. The ventricles are normal in size, shape, and morphology. The nolasco-white matter junction is normal. The subarachnoid cisterns are patent. The visualized paranasal sinuses are normal. The visualized portions of the orbits and globes are no rmal. The mastoid air cells are clear. The hand cloth cutter topogram shows no lytic lesion or fracture. Impression: No acute intracranial process. Mild cerebral volume loss. Mild chronic small vessel ischemic disease. Electronically signed by: Bharathi Trujillo MD (06/02/2021 9:14 PM) [facility]
--- NOTE | 2021-06-02 21:18 | RAD ---
EXAM: CT Abdomen and Pelvis with IV contrast CLINICAL HISTORY: Reason: upper abd pain / Spl. Instructions: omni 300 75ml / History: . COMPARISON: 01/24/2019 TECHNIQUE: Helical CT of the abdomen and pelvis was performed following the administration of intrave nous contrast. Axial, coronal and sagittal reformatted images were generated. PQRS compliance statement - One or more of the following individualized dose reduction techniques wer e utilized for this study: 1. Automated exposure control 2. Adjustment of the mA and/or kV according to patient size 3. Use of iterative reconstruction technique FINDINGS: Lower Chest: Visualized lung bases are clear. Heart size is normal. No pericardial effusion Abdomen and Pelvis: The liver, gallbladder, spleen, adrenals, and pancreas are unremarkable. No perinephric inflammation or hydronephrosis. Subcentimeter hypodensity in the superior pole of the right kidney, similar to torres or favoring a benign cyst. Stomach is decompressed accentuating wall thickness. No evidence of obstruction scattered colonic div erticulosis without diverticulitis. Appendix is normal. No free intra-abdominal air or free fluid. No pathologically enlarged abdominal or pelvic adenopathy. Scattered antibiotic atherosclerotic disease . No aneurysmal dilation. Urinary bladder is unremarkable. Unremarkable uterus is present. No suspicious adnexal masses. Anteri or abdominal wall is unremarkable. Tiny periumbilical fat-containing hernia. No suspicious osseous lesions or acute fractures. IMPRESSION: 1. Nonspecific mild gastric wall thickening may be due to underdistention or gastritis. 2. Otherwise, no evidence of acute process in the abdomen or pelvis. 3. Colonic diverticulosis without diverticulitis. Electronically signed by: Zechariah De Jesus DO (06/02/2021 9:16 PM) [facility]
[2021-06-02] MEDS ORDERED: ACETAMINOPHEN 325 MG TABLET. PO PRN (23:45)
[2021-06-02] MEDS ORDERED: ONDANSETRON PF 4 MG/2 ML VIAL. IVP PRN (23:45)
[2021-06-03] VITALS (7 sets, daily range): BP systolic 106–164; BP diastolic 50–81
--- NOTE | 2021-06-03 01:00 | NUR ---
The patient, MAXIMILIAN LAM, 81 y/o, F admitted by MARY HOLLY MD, was given written information regarding hospital policies, unit procedures and contact persons. Valuables were checked and left with her.
[2021-06-03 06:58] LABS: BASO % 1 % (0-3); EOS # 0.1 x10^3/uL (0.0-0.7); EOS % 1 % (0-3); HEMATOCRIT 38.6 % (36.0-47.0); HEMOGLOBIN 12.6 g/dL (12.0-15.5); LYMPH # 1.5 x10^3/uL (1.0-4.8); LYMPH % 27 % (24-48); MEAN CORPUSCULAR HEMOGLOBIN 30 pg (25-35); MEAN CORPUSCULAR HGB CONC 33 g/dL (31-37); MEAN CORPUSCULAR VOLUME 92 fL (79-100); MONO # 0.3 x10^3/uL (0.0-1.1); MONO % 6 % (0-9); NEUT # 3.5 x10^3/uL (1.8-7.7); NEUT % 65 % (31-73); PLATELET COUNT 183 x10^3/uL (140-400); RED BLOOD COUNT 4.18 x10^6/uL (3.50-5.40); RED CELL DISTRIBUTION WIDTH 15.1 % (11.5-14.5); WHITE BLOOD COUNT 5.4 x10^3/uL (4.0-11.0)
[2021-06-03 07:06] LABS: CALCIUM 8.9 mg/dL (8.5-10.1); CREATININE 0.4 mg/dL (0.6-1.0); GFR 153.2; POTASSIUM 3.3 mmol/L (3.5-5.1)
--- NOTE | 2021-06-03 10:00 | PDOC1 ---
History and Physical Date of Admission Date of Admission DATE: 06/03/21 TIME: 09:57 Source Source: Chart review, Patient History of Present Illness History of Present Illness 81-year-old female, ,lives in her own house and was admiteed from the ER last for not feeling well. She had recent UTI, and was on oral abx, treated by Dr. Le, but she has had more trouble with weakness recently. COmpalins that over days, she had become progressively more confused, but feels much btter this AM. She is not having any pain, and reports feeling better, but is worried abotu her weakness. 5 days ago was startede on cephalosporin for UTI and then had weakness, confusion and nausea, and was not eating much. Past Medical History Past Medical History with a history of hypertension, hyperlipidemia, hypothyroidism, multiple sclerosis and obesity, weakness, uses motorized chair Cardiovascular: HTN, Hyperlipidemia Pulmonary: No pertinent hx CENTRAL NERVOUS SYSTEM: Other GI: Other Heme/Onc: No pertinent hx Hepatobiliary: No pertinent hx Psych: No pertinent hx Musculoskeletal: Osteoarthritis Rheumatologic: No pertinent hx Infectious disease: No pertinent hx Renal/: No pertinent hx Endocrine: Hypothyroidism Past Surgical History Past Surgical History: Other Family History Family History: No Significant, High Cholestrol, Hypertension Social History Smoke: No ALCOHOL: rare Drugs: None Current Problem List Problem List Problems Medical Problems: (1) Acute cystitis Status: Acute (2) Acute metabolic encephalopathy Status: Acute (3) Other fatigue Status: Acute Current Medications Current Medications Current Medications Ondansetron HCl (Zofran) 4 mg 1X ONCE IVP Last administered on 06/02/21at 20:11; Start 06/02/21 at 19:30; Stop 06/02/21 at 19:38; Status DC Sodium Chloride 250 ml @ 500 mls/hr 1X ONCE IV Last administered on 06/02/21at 20:08; Start 06/02/21 at 19:30; Stop 06/02/21 at 19:59; Status DC Acetaminophen (Tylenol) 1,000 mg 1X ONCE PO Last administered on 06/02/21at 20:11; Start 06/02/21 at 19:30; Stop 06/02/21 at 19:38; Status DC Multi-Ingredient Mouthwash/Gargle (Gi Cocktail) 20 ml 1X ONCE SWSW Last administered on 06/02/21at 20:10; Start 06/02/21 at 19:30; Stop 06/02/21 at 19:38; Status DC Ceftriaxone Sodium (Rocephin) 1 gm 1X ONCE IVP Last administered on 06/02/21at 20:08; Start 06/02/21 at 19:45; Stop 06/02/21 at 19:46; Status DC Iohexol (Omnipaque 300 Mg/ml) 75 ml 1X ONCE IV Last administered on 06/02/21at 21:07; Start 06/02/21 at 20:45; Stop 06/02/21 at 20:46; Status DC Sodium Chloride 250 ml @ 500 mls/hr 1X ONCE IV Last administered on 06/02/21at 23:29; Start 06/02/21 at 22:15; Stop 06/02/21 at 22:44; Status DC Ondansetron HCl (Zofran) 4 mg PRN Q8HRS PRN IVP NAUSEA/VOMITING; Start 06/02/21 at 23:45; Stop 06/03/21 at 23:44 Acetaminophen (Tylenol) 650 mg PRN Q4HRS PRN PO PAIN MILD; Start 06/02/21 at 23:45; Stop 06/03/21 at 23:44 Active Scripts Active Amoxicillin-Clav Er 1,000-62.5 (Amoxicillin/Potassium Clav) 1 Each Tab.er.12h 1 Tab PO BID Culturelle (Lactobacillus Rhamnosus Gg) 1 Each Cap.sprink 1 Cap PO BID 30 Days Synthroid (Levothyroxine Sodium) 25 Mcg Tablet 25 Mcg PO DAILY06 30 Days Reported Triamterene-Hctz 37.5-25 Mg Tb (Triamterene/Hydrochlorothiazid) 1 Each Tablet 1 Tab PO DAILY Allergies Allergies: Coded Allergies: chlorhexidine (Verified Allergy, Intermediate, Rash, 12/30/13) codeine (Verified Allergy, Intermediate, RASH AND ITCHING, 12/30/13) aspartame (Verified Adverse Reaction, Severe, WEAKNESS IN LEGS, 12/30/13) atorvastatin (Verified Adverse Reaction, Severe, MYALGIA/LEG WEAKNESS, 12/30/13) Physical Exam Physical Exam Patient is alert, moves all extremities equally, and answers questions generally somewhat appropriately but tends to lose her train of thought in the middle of sentences which daughter states is not normal for her. Vital signs are appropriate here and the patient is in no acute distress. Abdomen: Normal bowel sounds Rectal Exam: not examined Extremities: No cyanosis, Other (2+ edema, muscle wasting, weakness , ) Skin: No breakdown Neuro: Normal gait, Sensation intact Psych/Mental Status: Mood NL, Other (lethargic, frail voice) Vitals Vitals Vital Signs Date Time Temp Pulse Resp B/P (MAP) Pulse Ox O2 Delivery O2 Flow Rate FiO2 06/03/21 07:30 62 16 150/76 (100) 96 Room Air 06/03/21 03:33 97.0 97.0 Labs Labs Laboratory Tests Test 06/02/21 19:45 06/02/21 20:00 06/03/21 06:25 White Blood Count 5.5 x10^3/uL (4.0-11.0) 5.4 x10^3/uL (4.0-11.0) Red Blood Count 4.44 x10^6/uL (3.50-5.40) 4.18 x10^6/uL (3.50-5.40) Hemoglobin 13.7 g/dL (12.0-15.5) 12.6 g/dL (12.0-15.5) Hematocrit 40.5 % (36.0-47.0) 38.6 % (36.0-47.0) Mean Corpuscular Volume 91 fL (79-100) 92 fL (79-100) Mean Corpuscular Hemoglobin 31 pg (25-35) 30 pg (25-35) Mean Corpuscular Hemoglobin Concent 34 g/dL (31-37) 33 g/dL (31-37) Red Cell Distribution Width 14.9 % (11.5-14.5) 15.1 % (11.5-14.5) Platelet Count 205 x10^3/uL (140-400) 183 x10^3/uL (140-400) Neutrophils (%) (Auto) 71 % (31-73) 65 % (31-73) Lymphocytes (%) (Auto) 23 % (24-48) 27 % (24-48) Monocytes (%) (Auto) 6 % (0-9) 6 % (0-9) Eosinophils (%) (Auto) 1 % (0-3) 1 % (0-3) Basophils (%) (Auto) 0 % (0-3) 1 % (0-3) Neutrophils # (Auto) 3.9 x10^3/uL (1.8-7.7) 3.5 x10^3/uL (1.8-7.7) Lymphocytes # (Auto) 1.3 x10^3/uL (1.0-4.8) 1.5 x10^3/uL (1.0-4.8) Monocytes # (Auto) 0.3 x10^3/uL (0.0-1.1) 0.3 x10^3/uL (0.0-1.1) Eosinophils # (Auto) 0.0 x10^3/uL (0.0-0.7) 0.1 x10^3/uL (0.0-0.7) Basophils # (Auto) 0.0 x10^3/uL (0.0-0.2) 0.0 x10^3/uL (0.0-0.2) Sodium Level 132 mmol/L (136-145) 135 mmol/L (136-145) Potassium Level 4.1 mmol/L (3.5-5.1) 3.3 mmol/L (3.5-5.1) Chloride Level 95 mmol/L (98-107) 100 mmol/L (98-107) Carbon Dioxide Level 31 mmol/L (21-32) 29 mmol/L (21-32) Anion Gap 6 (6-14) 6 (6-14) Blood Urea Nitrogen 10 mg/dL (7-20) 10 mg/dL (7-20) Creatinine 0.5 mg/dL (0.6-1.0) 0.4 mg/dL (0.6-1.0) Estimated GFR (Cockcroft-Gault) 118.4 153.2 BUN/Creatinine Ratio 20 (6-20) Glucose Level 90 mg/dL (70-99) 75 mg/dL (70-99) Lactic Acid Level 0.4 mmol/L (0.4-2.0) Calcium Level 9.9 mg/dL (8.5-10.1) 8.9 mg/dL (8.5-10.1) Total Bilirubin 0.4 mg/dL (0.2-1.0) Aspartate Amino Transf (AST/SGOT) 22 U/L (15-37) Alanine Aminotransferase (ALT/SGPT) 24 U/L (14-59) Alkaline Phosphatase 93 U/L (46-116) Troponin I High Sensitivity 11 ng/L (4-50) IL-Zqi-H-Type Natriuretic Peptide 61 pg/mL (0-449) Total Protein 7.7 g/dL (6.4-8.2) Albumin 3.5 g/dL (3.4-5.0) Albumin/Globulin Ratio 0.8 (1.0-1.7) Lipase 205 U/L (73-393) Salicylates Level 1.8 mg/dL (2.8-20.0) Salicylate Last Dose Date Salicylate Last Dose Time Acetaminophen Level < 2 mcg/ml (10-30) Acetaminophen Last Dose Date Acetaminophen Last Dose Time Ethyl Alcohol Level < 10 mg/dL (0-10) Urine Collection Type U cath Urine Color (Auto) Colorless Urine Turbidity Clear Urine pH (Auto) 5.5 (<5.0-8.0) Urine Specific [place] 1.009 (1.000-1.030) Urine Protein (Auto) Negative mg/dL (Negative) Urine Glucose (Auto)(UA) Negative mg/dL (Negative) Urine Ketones (Auto) 10 mg/dL (Negative) Urine Blood (Auto) Negative (Negative) Urine Nitrite Negative (Negative) Urine Bilirubin (Auto) Negative (Negative) Urine Urobilinogen (Auto) Normal mg/dL (Normal) Urine Leukocyte Esterase (Auto) Negative (Negative) Urine RBC 0 /HPF (0-2) Urine WBC Occ /HPF (0-4) Urine Squamous Epithelial Cells Mod /LPF Urine Amorphous Sediment Present /HPF Urine Bacteria 0 /HPF (0-FEW) Urine Mucus Slight /LPF Urine Opiates Screen Neg (NEG) Urine Methadone Screen Neg (NEG) Urine Barbiturates Neg (NEG) Urine Phencyclidine Screen Neg (NEG) Urine Amphetamine/Methamphetamine Neg (NEG) Urine Benzodiazepines Screen Neg (NEG) Urine Cocaine Screen Neg (NEG) Urine Cannabinoids Screen Neg (NEG) Urine Ethyl Alcohol Neg (NEG) Laboratory Tests Test 06/02/21 19:45 06/02/21 20:00 06/03/21 06:25 White Blood Count 5.5 x10^3/uL (4.0-11.0) 5.4 x10^3/uL (4.0-11.0) Red Blood Count 4.44 x10^6/uL (3.50-5.40) 4.18 x10^6/uL (3.50-5.40) Hemoglobin 13.7 g/dL (12.0-15.5) 12.6 g/dL (12.0-15.5) Hematocrit 40.5 % (36.0-47.0) 38.6 % (36.0-47.0) Mean Corpuscular Volume 91 fL (79-100) 92 fL (79-100) Mean Corpuscular Hemoglobin 31 pg (25-35) 30 pg (25-35) Mean Corpuscular Hemoglobin Concent 34 g/dL (31-37) 33 g/dL (31-37) Red Cell Distribution Width 14.9 % (11.5-14.5) 15.1 % (11.5-14.5) Platelet Count 205 x10^3/uL (140-400) 183 x10^3/uL (140-400) Neutrophils (%) (Auto) 71 % (31-73) 65 % (31-73) Lymphocytes (%) (Auto) 23 % (24-48) 27 % (24-48) Monocytes (%) (Auto) 6 % (0-9) 6 % (0-9) Eosinophils (%) (Auto) 1 % (0-3) 1 % (0-3) Basophils (%) (Auto) 0 % (0-3) 1 % (0-3) Neutrophils # (Auto) 3.9 x10^3/uL (1.8-7.7) 3.5 x10^3/uL (1.8-7.7) Lymphocytes # (Auto) 1.3 x10^3/uL (1.0-4.8) 1.5 x10^3/uL (1.0-4.8) Monocytes # (Auto) 0.3 x10^3/uL (0.0-1.1) 0.3 x10^3/uL (0.0-1.1) Eosinophils # (Auto) 0.0 x10^3/uL (0.0-0.7) 0.1 x10^3/uL (0.0-0.7) Basophils # (Auto) 0.0 x10^3/uL (0.0-0.2) 0.0 x10^3/uL (0.0-0.2) Sodium Level 132 mmol/L (136-145) 135 mmol/L (136-145) Potassium Level 4.1 mmol/L (3.5-5.1) 3.3 mmol/L (3.5-5.1) Chloride Level 95 mmol/L (98-107) 100 mmol/L (98-107) Carbon Dioxide Level 31 mmol/L (21-32) 29 mmol/L (21-32) Anion Gap 6 (6-14) 6 (6-14) Blood Urea Nitrogen 10 mg/dL (7-20) 10 mg/dL (7-20) Creatinine 0.5 mg/dL (0.6-1.0) 0.4 mg/dL (0.6-1.0) Estimated GFR (Cockcroft-Gault) 118.4 153.2 BUN/Creatinine Ratio 20 (6-20) Glucose Level 90 mg/dL (70-99) 75 mg/dL (70-99) Lactic Acid Level 0.4 mmol/L (0.4-2.0) Calcium Level 9.9 mg/dL (8.5-10.1) 8.9 mg/dL (8.5-10.1) Total Bilirubin 0.4 mg/dL (0.2-1.0) Aspartate Amino Transf (AST/SGOT) 22 U/L (15-37) Alanine Aminotransferase (ALT/SGPT) 24 U/L (14-59) Alkaline Phosphatase 93 U/L (46-116) Troponin I High Sensitivity 11 ng/L (4-50) OV-Puw-R-Type Natriuretic Peptide 61 pg/mL (0-449) Total Protein 7.7 g/dL (6.4-8.2) Albumin 3.5 g/dL (3.4-5.0) Albumin/Globulin Ratio 0.8 (1.0-1.7) Lipase 205 U/L (73-393) Salicylates Level 1.8 mg/dL (2.8-20.0) Salicylate Last Dose Date Salicylate Last Dose Time Acetaminophen Level < 2 mcg/ml (10-30) Acetaminophen Last Dose Date Acetaminophen Last Dose Time Ethyl Alcohol Level < 10 mg/dL (0-10) Urine Collection Type U cath Urine Color (Auto) Colorless Urine Turbidity Clear Urine pH (Auto) 5.5 (<5.0-8.0) Urine Specific [place] 1.009 (1.000-1.030) Urine Protein (Auto) Negative mg/dL (Negative) Urine Glucose (Auto)(UA) Negative mg/dL (Negative) Urine Ketones (Auto) 10 mg/dL (Negative) Urine Blood (Auto) Negative (Negative) Urine Nitrite Negative (Negative) Urine Bilirubin (Auto) Negative (Negative) Urine Urobilinogen (Auto) Normal mg/dL (Normal) Urine Leukocyte Esterase (Auto) Negative (Negative) Urine RBC 0 /HPF (0-2) Urine WBC Occ /HPF (0-4) Urine Squamous Epithelial Cells Mod /LPF Urine Amorphous Sediment Present /HPF Urine Bacteria 0 /HPF (0-FEW) Urine Mucus Slight /LPF Urine Opiates Screen Neg (NEG) Urine Methadone Screen Neg (NEG) Urine Barbiturates Neg (NEG) Urine Phencyclidine Screen Neg (NEG) Urine Amphetamine/Methamphetamine Neg (NEG) Urine Benzodiazepines Screen Neg (NEG) Urine Cocaine Screen Neg (NEG) Urine Cannabinoids Screen Neg (NEG) Urine Ethyl Alcohol Neg (NEG) VTE Prophylaxis Ordered VTE Prophylaxis Devices: No VTE Pharmacological Prophylaxi: Yes Assessment/Plan Assessment/Plan urinary tract infection, Rocephin , follow cultures, acute metabolic encephalopathy small fluid bolus, abdominal pain morbid obesity, weakness, fall risk, needs Pt and OT eval, consider skilled - needs rehab f/u cx form PCPs office Justifications for Admission Other Justification MARK BRUNER MD Jun 03, 2021 09:59
[2021-06-03] MEDS ORDERED: POTASSIUM CHLORIDE 20 MEQ TABLET.ER. PO ONE (11:00)
--- NOTE | 2021-06-03 12:29 | EKG ---
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
[2021-06-03] MEDS: cefTRIAXone IV Push 1 GM VIAL. IVP SCH (18:21)
[2021-06-03] MEDS: LACTOBACILLUS RHAMNOSUS GG 1 CAPSULE. PO SCH (21:17)
[2021-06-04 04:15] VITALS: BP 133/52
[2021-06-04 07:30] VITALS: BP 150/62
[2021-06-04] MEDS: LACTOBACILLUS RHAMNOSUS GG 1 CAPSULE. PO SCH ×2 (09:00→20:14)
[2021-06-04] MEDS: ACETAMINOPHEN 325 MG TABLET. PO PRN (09:16)
[2021-06-04 11:40] VITALS: BP 137/67
[2021-06-04 15:28] VITALS: BP 145/73
[2021-06-04] MEDS: cefTRIAXone IV Push 1 GM VIAL. IVP SCH (18:09)
--- NOTE | 2021-06-04 18:37 | NUR ---
Patients Dtr Danielle came out to the nurses station asking how patient was doing, then stated that she seems to be in a deep sleep. This RN and RENETTA Harry went into check on patient. Patient is not responding to verbal stimulus but she does respond to pain and touch. Patient has her hands on her chest and grabbing tightly onto the sheets. 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 Pts dtr stated she was like this about a year ago when she had a UTI and the doctors called it sleep paralysis. Dtr stated patient looks as if she is scared and doesn't want to wake up. When patient woke up a year ago from this sleep paralysis, dtr stated that patient know and heard everything that was going on around her but she couldn't wake up or move. Pts dtr stated it lasted some hours. Vitals were obtained BP 189/99 HR 99 Temp 98.2 AX RR 18 O2 Sat 95%. Patient does clench when blood pressure cuff blows up. Dr. Gill was paged and orders were received for labs, CBC and CMP. Patient already on an antibiotic and had a head CT upon admission. Night RN notified.
[2021-06-04 19:00] VITALS: BP 181/93
[2021-06-04 19:30] LABS: BASO # 0.1 x10^3/uL (0.0-0.2); BASO % 1 % (0-3); EOS # 0.1 x10^3/uL (0.0-0.7); EOS % 1 % (0-3); HEMATOCRIT 40.9 % (36.0-47.0); HEMOGLOBIN 13.7 g/dL (12.0-15.5); LYMPH # 1.6 x10^3/uL (1.0-4.8); LYMPH % 28 % (24-48); MEAN CORPUSCULAR HEMOGLOBIN 31 pg (25-35); MEAN CORPUSCULAR HGB CONC 34 g/dL (31-37); MEAN CORPUSCULAR VOLUME 92 fL (79-100); MONO # 0.4 x10^3/uL (0.0-1.1); MONO % 7 % (0-9); NEUT # 3.7 x10^3/uL (1.8-7.7); NEUT % 64 % (31-73); PLATELET COUNT 224 x10^3/uL (140-400); RED BLOOD COUNT 4.47 x10^6/uL (3.50-5.40); RED CELL DISTRIBUTION WIDTH 15.2 % (11.5-14.5); WHITE BLOOD COUNT 5.7 x10^3/uL (4.0-11.0)
[2021-06-04 20:21] LABS: CALCIUM 9.4 mg/dL (8.5-10.1); CREATININE 0.5 mg/dL (0.6-1.0); GFR 118.4; POTASSIUM 4.3 mmol/L (3.5-5.1)
[2021-06-04 20:27] LABS: ALBUMIN 2.9 g/dL (3.4-5.0); ALBUMIN/GLOBULIN RATIO 0.7 (1.0-1.7); TOTAL BILIRUBIN 0.3 mg/dL (0.2-1.0); TOTAL PROTEIN 6.8 g/dL (6.4-8.2)
[2021-06-04 23:00] VITALS: BP 165/89
[2021-06-05 03:00] VITALS: BP 138/96
[2021-06-05 07:00] VITALS: BP 149/69
[2021-06-05] MEDS: LACTOBACILLUS RHAMNOSUS GG 1 CAPSULE. PO SCH ×2 (08:30→21:48)
[2021-06-05 11:00] VITALS: BP 144/73
--- NOTE | 2021-06-05 12:27 | PDOC ---
[employer] PROGRESS NOTE Date of Service DOS: DATE: 06/05/21 TIME: 12:25 Chief Complaint Chief Complaint Metabolic cephalopathy UTI Nausea and vomiting Gastritis Diverticulosis Inability to care for herself Also history of the following semi- hypertension, hyperlipidemia, hypothyroidism, multiple sclerosis and obesity, weakness, uses motorized chair HTN, Hyperlipidemia History of Present Illness History of Present Illness 06/05/2021 Patient seen and examined Discussed with RN Discussed with special education case manager Chart reviewed The patient remains very weak and pleasantly confused 81-year-old female, ,lives in her own house and was admiteed from the ER last for not feeling well. She had recent UTI, and was on oral abx, treated by Dr. Le, but she has had more trouble with weakness recently. compalins that over days, she had become progressively more confused, but feels much btter this AM. She is not having any pain, and reports feeling better, but is worried abotu her weakness. 5 days ago was startede on cephalosporin for UTI and then had weakness, confusion and nausea, and was not eating much. Vitals/I&O Vitals/I&O: Vital Signs Date Time Temp Pulse Resp B/P (MAP) Pulse Ox O2 Delivery O2 Flow Rate FiO2 06/05/21 11:00 99.7 103 20 144/73 (96) 93 Room Air 99.7 I & O 06/04/21 06/04/21 06/05/21 15:00 23:00 07:00 Intake Total 840 ml 0 ml 0 ml Balance 840 ml 0 ml 0 ml Physical Exam Lungs: Clear Abdomen: Normal bowel sounds Extremities: No cyanosis, Other (2+ edema, muscle wasting, weakness , ) Skin: No breakdown Labs Labs: Laboratory Tests Test 06/04/21 19:20 White Blood Count 5.7 x10^3/uL (4.0-11.0) Red Blood Count 4.47 x10^6/uL (3.50-5.40) Hemoglobin 13.7 g/dL (12.0-15.5) Hematocrit 40.9 % (36.0-47.0) Mean Corpuscular Volume 92 fL (79-100) Mean Corpuscular Hemoglobin 31 pg (25-35) Mean Corpuscular Hemoglobin Concent 34 g/dL (31-37) Red Cell Distribution Width 15.2 % (11.5-14.5) Platelet Count 224 x10^3/uL (140-400) Neutrophils (%) (Auto) 64 % (31-73) Lymphocytes (%) (Auto) 28 % (24-48) Monocytes (%) (Auto) 7 % (0-9) Eosinophils (%) (Auto) 1 % (0-3) Basophils (%) (Auto) 1 % (0-3) Neutrophils # (Auto) 3.7 x10^3/uL (1.8-7.7) Lymphocytes # (Auto) 1.6 x10^3/uL (1.0-4.8) Monocytes # (Auto) 0.4 x10^3/uL (0.0-1.1) Eosinophils # (Auto) 0.1 x10^3/uL (0.0-0.7) Basophils # (Auto) 0.1 x10^3/uL (0.0-0.2) Sodium Level 139 mmol/L (136-145) Potassium Level 4.3 mmol/L (3.5-5.1) Chloride Level 101 mmol/L (98-107) Carbon Dioxide Level 30 mmol/L (21-32) Anion Gap 8 (6-14) Blood Urea Nitrogen 13 mg/dL (7-20) Creatinine 0.5 mg/dL (0.6-1.0) Estimated GFR (Cockcroft-Gault) 118.4 BUN/Creatinine Ratio 26 (6-20) Glucose Level 89 mg/dL (70-99) Calcium Level 9.4 mg/dL (8.5-10.1) Total Bilirubin 0.3 mg/dL (0.2-1.0) Aspartate Amino Transf (AST/SGOT) 14 U/L (15-37) Alanine Aminotransferase (ALT/SGPT) 18 U/L (14-59) Alkaline Phosphatase 81 U/L (46-116) Total Protein 6.8 g/dL (6.4-8.2) Albumin 2.9 g/dL (3.4-5.0) Albumin/Globulin Ratio 0.7 (1.0-1.7) Assessment and Plan Assessmemt and Plan Problems Medical Problems: (1) Acute cystitis Status: Acute (2) Acute metabolic encephalopathy Status: Acute (3) Other fatigue Status: Acute Metabolic cephalopathy Weakness Inability to care for herself UTI Nausea/vomiting Gastritis Diverticulosis Also history of the following : hypertension, hyperlipidemia, hypothyroidism, multiple sclerosis and obesity, weakness, uses motorized chair HTN, Hyperlipidemia Plan IV fluids IV antibiotics PT OT Trend labs Encourage p.o. intake Home meds DVT prophylaxis Full code [facility]pect [facility] to [facility] Comment Review of Relevant I have reviewed the following items luis felipe (where applicable) has been applied. Justifications for Admission Other Justification ROSE CEDILLO III DO Jun 05, 2021 12:27
[2021-06-05] MEDS: AA 4.25 %/CALCIUM/LYTES/D5W 1,000 ML IV SCH (15:11)
[2021-06-05 15:16] VITALS: BP 106/68
[2021-06-05] MEDS: cefTRIAXone IV Push 1 GM VIAL. IVP SCH (17:59)
[2021-06-05 19:00] VITALS: BP 121/54
[2021-06-05 23:00] VITALS: BP 120/55
[2021-06-06] MEDS: AA 4.25 %/CALCIUM/LYTES/D5W 1,000 ML IV SCH ×2 (02:00→15:45)
[2021-06-06 03:00] VITALS: BP 114/56
[2021-06-06 05:23] LABS: CALCIUM 8.9 mg/dL (8.5-10.1); CREATININE 0.5 mg/dL (0.6-1.0); GFR 118.4; POTASSIUM 3.6 mmol/L (3.5-5.1)
[2021-06-06 06:37] LABS: BASO % 1 % (0-3); EOS # 0.1 x10^3/uL (0.0-0.7); EOS % 2 % (0-3); HEMATOCRIT 38.6 % (36.0-47.0); HEMOGLOBIN 12.4 g/dL (12.0-15.5); LYMPH # 2.1 x10^3/uL (1.0-4.8); LYMPH % 34 % (24-48); MEAN CORPUSCULAR HEMOGLOBIN 30 pg (25-35); MEAN CORPUSCULAR HGB CONC 32 g/dL (31-37); MEAN CORPUSCULAR VOLUME 94 fL (79-100); MONO # 0.8 x10^3/uL (0.0-1.1); MONO % 12 % (0-9); NEUT # 3.3 x10^3/uL (1.8-7.7); NEUT % 53 % (31-73); PLATELET COUNT 193 x10^3/uL (140-400); RED BLOOD COUNT 4.13 x10^6/uL (3.50-5.40); RED CELL DISTRIBUTION WIDTH 15.5 % (11.5-14.5); WHITE BLOOD COUNT 6.3 x10^3/uL (4.0-11.0)
[2021-06-06 07:00] VITALS: BP 154/61
[2021-06-06] MEDS: LACTOBACILLUS RHAMNOSUS GG 1 CAPSULE. PO SCH ×3 (08:38→21:24)
[2021-06-06 11:00] VITALS: BP 124/60
--- NOTE | 2021-06-06 12:08 | PDOC ---
[employer] PROGRESS NOTE Date of Service DOS: DATE: 06/06/21 TIME: 12:06 Chief Complaint Chief Complaint Metabolic cephalopathy UTI Nausea and vomiting Gastritis Diverticulosis Inability to care for herself Also history of the following semi- hypertension, hyperlipidemia, hypothyroidism, multiple sclerosis and obesity, weakness, uses motorized chair HTN, Hyperlipidemia History of Present Illness History of Present Illness 06/07/2019 Patient seen and examined Resting with NAD Has IV Clinimix hanging Discussed with RN Discussed with case management Chart reviewed We are hoping to discharge her to senior living soon 06/05/2021 Patient seen and examined Discussed with RN Discussed with gearcase assembler Chart reviewed The patient remains very weak and pleasantly confused 81-year-old female, ,lives in her own house and was admiteed from the ER last for not feeling well. She had recent UTI, and was on oral abx, treated by Dr. Le, but she has had more trouble with weakness recently. compalins that over days, she had become progressively more confused, but feels much btter this AM. She is not having any pain, and reports feeling better, but is worried abotu her weakness. 5 days ago was startede on cephalosporin for UTI and then had weakness, confusion and nausea, and was not eating much. Vitals/I&O Vitals/I&O: Vital Signs Date Time Temp Pulse Resp B/P (MAP) Pulse Ox O2 Delivery O2 Flow Rate FiO2 06/06/21 11:00 97.9 83 19 124/60 (81) 95 Room Air 97.9 I & O 06/05/21 06/05/21 06/06/21 15:00 23:00 07:00 Intake Total 200 ml 0 ml 120 ml Balance 200 ml 0 ml 120 ml Physical Exam General: No acute distress Heart: Regular rate Lungs: Clear Abdomen: Normal bowel sounds Extremities: No cyanosis, Other (2+ edema, muscle wasting, weakness , ) Skin: No breakdown Labs Labs: Laboratory Tests Test 06/06/21 03:15 06/06/21 10:14 White Blood Count 6.3 x10^3/uL (4.0-11.0) Red Blood Count 4.13 x10^6/uL (3.50-5.40) Hemoglobin 12.4 g/dL (12.0-15.5) Hematocrit 38.6 % (36.0-47.0) Mean Corpuscular Volume 94 fL (79-100) Mean Corpuscular Hemoglobin 30 pg (25-35) Mean Corpuscular Hemoglobin Concent 32 g/dL (31-37) Red Cell Distribution Width 15.5 % (11.5-14.5) Platelet Count 193 x10^3/uL (140-400) Neutrophils (%) (Auto) 53 % (31-73) Lymphocytes (%) (Auto) 34 % (24-48) Monocytes (%) (Auto) 12 % (0-9) Eosinophils (%) (Auto) 2 % (0-3) Basophils (%) (Auto) 1 % (0-3) Neutrophils # (Auto) 3.3 x10^3/uL (1.8-7.7) Lymphocytes # (Auto) 2.1 x10^3/uL (1.0-4.8) Monocytes # (Auto) 0.8 x10^3/uL (0.0-1.1) Eosinophils # (Auto) 0.1 x10^3/uL (0.0-0.7) Basophils # (Auto) 0.0 x10^3/uL (0.0-0.2) Sodium Level 141 mmol/L (136-145) Potassium Level 3.6 mmol/L (3.5-5.1) Chloride Level 104 mmol/L (98-107) Carbon Dioxide Level 31 mmol/L (21-32) Anion Gap 6 (6-14) Blood Urea Nitrogen 20 mg/dL (7-20) Creatinine 0.5 mg/dL (0.6-1.0) Estimated GFR (Cockcroft-Gault) 118.4 Glucose Level 105 mg/dL (70-99) Calcium Level 8.9 mg/dL (8.5-10.1) SARS-CoV-2 Antigen (Rapid) Negative (NEGATIVE) Assessment and Plan Assessmemt and Plan Problems Medical Problems: (1) Acute cystitis Status: Acute (2) Acute metabolic encephalopathy Status: Acute (3) Other fatigue Status: Acute Metabolic cephalopathy Weakness Inability to care for herself UTI Nausea/vomiting Gastritis Diverticulosis Also history of the following : hypertension, hyperlipidemia, hypothyroidism, multiple sclerosis and obesity, weakness, uses motorized chair HTN, Hyperlipidemia Plan Continue IV Clinimix IV antibiotics PT OT Trend labs Encourage p.o. intake Home meds DVT prophylaxis Full code Suspect she will need to go to senior living [facility] later today or tomorrow if we can get her accepted Comment Review of Relevant I have reviewed the following items luis felipe (where applicable) has been applied. Medications: Current Medications Medications (Trade) Dose Ordered Sig/Forest Route PRN Reason Start Time Stop Time Status Last Admin Dose Admin Amino Acids/ Electrolytes/ Dextrose 1,000 ml @ 80 mls/hr [id number] IV 06/05/21 13:30 06/06/21 02:00 Justifications for Admission Other Justification ROSE CEDILLO III DO Jun 06, 2021 12:08
[2021-06-06 15:00] VITALS: BP 97/49
[2021-06-06] MEDS: cefTRIAXone IV Push 1 GM VIAL. IVP SCH (17:51)
[2021-06-06 19:00] VITALS: BP 148/64
[2021-06-06] MEDS ORDERED: LACTOBACILLUS RHAMNOSUS GG 1 CAPSULE. PO SCH (21:00)
[2021-06-06 23:00] VITALS: BP 154/72
[2021-06-07 03:00] VITALS: BP 115/73
[2021-06-07] MEDS: AA 4.25 %/CALCIUM/LYTES/D5W 1,000 ML IV SCH ×2 (06:22→17:53)
[2021-06-07 07:00] VITALS: BP 125/58
--- NOTE | 2021-06-07 08:30 | NUR ---
When this RN did shift rounds patient didnt respond to nurse. Pt appeared to be sleeping/snoring. parts identification technician came out to desk a few minutes later and said that patient will not relax her arm for blood draw. This RN goes back into room and patient has arms crossed across her chest and clutching her rosary. When RN speaks to patient, patient doesnt respond. When RN tries to move pts arm, patient clenches arms tighter and withdraws from touch. Dr. potter. Will continue to monitor.
[2021-06-07] MEDS: LACTOBACILLUS RHAMNOSUS GG 1 CAPSULE. PO SCH ×2 (09:00→21:00)
--- NOTE | 2021-06-07 12:00 | PDOC ---
[employer] PROGRESS NOTE Date of Service DOS: DATE: 06/07/21 TIME: 11:58 Chief Complaint Chief Complaint Metabolic cephalopathy UTI Nausea and vomiting Gastritis Diverticulosis Inability to care for herself Also history of the following semi- hypertension, hyperlipidemia, hypothyroidism, multiple sclerosis and obesity, weakness, uses motorized chair HTN, Hyperlipidemia History of Present Illness History of Present Illness 06/07/2021 Patient seen and examined Discussed with RN Discussed with case management Chart reviewed Currently patient is refusing to cooperate with physical exam Clinching her arms wallaby pull them open clenching her eyes show I will let me open them (she did the same thing a few days ago CT of the head was negative then) Suspect she is lonely and just does not want to go to senior living? 06/07/2019 Patient seen and examined Resting with NAD Has IV Clinimix hanging Discussed with RN Discussed with case management Chart reviewed We are hoping to discharge her to senior living soon 06/05/2021 Patient seen and examined Discussed with RN Discussed with nurse case manager Chart reviewed The patient remains very weak and pleasantly confused 81-year-old female, ,lives in her own house and was admiteed from the ER last for not feeling well. She had recent UTI, and was on oral abx, treated by Dr. Le, but she has had more trouble with weakness recently. compalins that over days, she had become progressively more confused, but feels much btter this AM. She is not having any pain, and reports feeling better, but is worried abotu her weakness. 5 days ago was startede on cephalosporin for UTI and then had weakness, con fusion and nausea, and was not eating much. Vitals/I&O Vitals/I&O: Vital Signs Date Time Temp Pulse Resp B/P (MAP) Pulse Ox O2 Delivery O2 Flow Rate FiO2 06/07/21 08:00 Room Air 06/07/21 07:00 99.5 96 20 125/58 (80) 99.5 06/07/21 03:00 94 Physical Exam General: No acute distress Heart: Regular rate Lungs: Clear Abdomen: Normal bowel sounds Extremities: No cyanosis, Other (2+ edema, muscle wasting, weakness , ) Skin: No breakdown Assessment and Plan Assessmemt and Plan Problems Medical Problems: (1) Acute cystitis Status: Acute (2) Acute metabolic encephalopathy Status: Acute (3) Other fatigue Status: Acute Metabolic cephalopathy Refusing physical exam and malingering (I think she just does not want to go to senior living) Weakness Inability to care for herself UTI Nausea/vomiting Gastritis Diverticulosis Also history of the following : hypertension, hyperlipidemia, hypothyroidism, multiple sclerosis and obesity, weakness, uses motorized chair HTN, Hyperlipidemia Plan Will await PT OT to see her today Continue IV Clinimix IV antibiotics Trend labs Encourage p.o. intake Home meds DVT prophylaxis Full code We are hoping to discharge to senior living soon Comment Review of Relevant I have reviewed the following items luis felipe (where applicable) has been applied. Justifications for Admission Other Justification ROSE CEDILLO III DO Jun 07, 2021 12:00
[2021-06-07 13:04] LABS: BASO # 0.1 x10^3/uL (0.0-0.2); BASO % 1 % (0-3); EOS # 0.1 x10^3/uL (0.0-0.7); EOS % 1 % (0-3); HEMATOCRIT 37.4 % (36.0-47.0); HEMOGLOBIN 12.6 g/dL (12.0-15.5); LYMPH # 1.1 x10^3/uL (1.0-4.8); LYMPH % 13 % (24-48); MEAN CORPUSCULAR HEMOGLOBIN 31 pg (25-35); MEAN CORPUSCULAR HGB CONC 34 g/dL (31-37); MEAN CORPUSCULAR VOLUME 92 fL (79-100); MONO # 0.6 x10^3/uL (0.0-1.1); MONO % 7 % (0-9); NEUT # 6.6 x10^3/uL (1.8-7.7); NEUT % 79 % (31-73); PLATELET COUNT 198 x10^3/uL (140-400); RED BLOOD COUNT 4.06 x10^6/uL (3.50-5.40); RED CELL DISTRIBUTION WIDTH 14.9 % (11.5-14.5); WHITE BLOOD COUNT 8.4 x10^3/uL (4.0-11.0)
[2021-06-07 13:15] LABS: CALCIUM 8.6 mg/dL (8.5-10.1); CREATININE 0.5 mg/dL (0.6-1.0); GFR 118.4; POTASSIUM 4.2 mmol/L (3.5-5.1)
[2021-06-07] MEDS: ACETAMINOPHEN 325 MG TABLET. PO PRN (16:24)
--- NOTE | 2021-06-07 17:07 | NUR ---
At approximately 1600 the COATING INSPECTOR was finishing vitals and came out to tell this RN that the patient was waking up. This RN went into the room with the family and patient was continuing to wake up. At this time (1707) patient is awake and talking with family and taking sips of water. Will continue to monitor.
[2021-06-07] MEDS: cefTRIAXone IV Push 1 GM VIAL. IVP SCH (17:47)
[2021-06-07 19:00] VITALS: BP 127/51
[2021-06-07] MEDS: FOSPHENYTOIN 100 MG/2 ML VIAL. IV SCH (22:26)
[2021-06-07 23:00] VITALS: BP 126/66
[2021-06-08] MEDS: AA 4.25 %/CALCIUM/LYTES/D5W 1,000 ML IV SCH ×2 (01:54→14:21)
[2021-06-08 03:00] VITALS: BP 125/39
[2021-06-08 07:00] VITALS: BP 126/54
[2021-06-08 07:59] LABS: BASO % 1 % (0-3); EOS # 0.2 x10^3/uL (0.0-0.7); EOS % 3 % (0-3); HEMOGLOBIN 12.2 g/dL (12.0-15.5); LYMPH # 1.6 x10^3/uL (1.0-4.8); LYMPH % 27 % (24-48); MEAN CORPUSCULAR HEMOGLOBIN 31 pg (25-35); MEAN CORPUSCULAR HGB CONC 33 g/dL (31-37); MEAN CORPUSCULAR VOLUME 94 fL (79-100); MONO # 0.6 x10^3/uL (0.0-1.1); MONO % 10 % (0-9); NEUT # 3.5 x10^3/uL (1.8-7.7); NEUT % 59 % (31-73); PLATELET COUNT 200 x10^3/uL (140-400); RED BLOOD COUNT 3.95 x10^6/uL (3.50-5.40); RED CELL DISTRIBUTION WIDTH 14.7 % (11.5-14.5)
[2021-06-08] MEDS: ACETAMINOPHEN 325 MG TABLET. PO PRN (08:22)
[2021-06-08 08:26] LABS: CALCIUM 8.8 mg/dL (8.5-10.1); CREATININE 0.5 mg/dL (0.6-1.0); GFR 118.4; POTASSIUM 4.3 mmol/L (3.5-5.1)
[2021-06-08] MEDS: FOSPHENYTOIN 100 MG/2 ML VIAL. IV SCH (09:33)
[2021-06-08] MEDS: LACTOBACILLUS RHAMNOSUS GG 1 CAPSULE. PO SCH ×2 (09:33→20:03)
[2021-06-08 11:00] VITALS: BP 130/50
--- NOTE | 2021-06-08 11:20 | PDOC ---
[employer] PROGRESS NOTE Date of Service DOS: DATE: 06/08/21 TIME: 11:19 Chief Complaint Chief Complaint Metabolic cephalopathy UTI Nausea and vomiting Gastritis Diverticulosis Inability to care for herself Also history of the following semi- hypertension, hyperlipidemia, hypothyroidism, multiple sclerosis and obesity, weakness, uses motorized chair HTN, Hyperlipidemia History of Present Illness History of Present Illness 06/08/2021 Patient seen and examined She is on the phone and alert Discussed with RN I spoke with her brother Nba on the phone Chart reviewed She seems to be at her baseline we could probably go ahead and get her to care home sometime soon 06/07/2021 Patient seen and examined Discussed with RN Discussed with case management Chart reviewed Currently patient is refusing to cooperate with physical exam Clinching her arms wallaby pull them open clenching her eyes show I will let me open them (she did the same thing a few days ago CT of the head was negative then) Suspect she is lonely and just does not want to go to care home? 06/07/2019 Patient seen and examined Resting with NAD Has IV Clinimix hanging Discussed with RN Discussed with case management Chart reviewed We are hoping to discharge her to care home soon 06/05/2021 Patient seen and examined Discussed with RN Discussed with disease case manager Chart reviewed The patient remains very weak and pleasantly confused 81-year-old female, ,lives in her own house and was admiteed from the ER last for not feeling well. She had recent UTI, and was on oral abx, treated by Dr. Le, but she has had more trouble with weakness recently. compalins that over days, she had become progressively more confused, but feels much btter this AM. She is not having any pain, and reports feeling better, but is worried abotu her weakness. 5 days ago was startede on cephalosporin for UTI and then had weakness, confusion and nausea, and was not eating much. Vitals/I&O Vitals/I&O: Vital Signs Date Time Temp Pulse Resp B/P (MAP) Pulse Ox O2 Delivery O2 Flow Rate FiO2 06/08/21 08:15 Room Air 06/08/21 07:00 98.6 74 18 126/54 (78) 93 98.6 Physical Exam General: No acute distress Heart: Regular rate Lungs: Clear Abdomen: Normal bowel sounds Extremities: No cyanosis, Other (2+ edema, muscle wasting, weakness , ) Skin: No breakdown Labs Labs: Laboratory Tests Test 06/07/21 12:50 06/08/21 05:00 06/08/21 06:25 White Blood Count 8.4 x10^3/uL (4.0-11.0) 6.0 x10^3/uL (4.0-11.0) Red Blood Count 4.06 x10^6/uL (3.50-5.40) 3.95 x10^6/uL (3.50-5.40) Hemoglobin 12.6 g/dL (12.0-15.5) 12.2 g/dL (12.0-15.5) Hematocrit 37.4 % (36.0-47.0) 37.0 % (36.0-47.0) Mean Corpuscular Volume 92 fL (79-100) 94 fL (79-100) Mean Corpuscular Hemoglobin 31 pg (25-35) 31 pg (25-35) Mean Corpuscular Hemoglobin Concent 34 g/dL (31-37) 33 g/dL (31-37) Red Cell Distribution Width 14.9 % (11.5-14.5) 14.7 % (11.5-14.5) Platelet Count 198 x10^3/uL (140-400) 200 x10^3/uL (140-400) Neutrophils (%) (Auto) 79 % (31-73) 59 % (31-73) Lymphocytes (%) (Auto) 13 % (24-48) 27 % (24-48) Monocytes (%) (Auto) 7 % (0-9) 10 % (0-9) Eosinophils (%) (Auto) 1 % (0-3) 3 % (0-3) Basophils (%) (Auto) 1 % (0-3) 1 % (0-3) Neutrophils # (Auto) 6.6 x10^3/uL (1.8-7.7) 3.5 x10^3/uL (1.8-7.7) Lymphocytes # (Auto) 1.1 x10^3/uL (1.0-4.8) 1.6 x10^3/uL (1.0-4.8) Monocytes # (Auto) 0.6 x10^3/uL (0.0-1.1) 0.6 x10^3/uL (0.0-1.1) Eosinophils # (Auto) 0.1 x10^3/uL (0.0-0.7) 0.2 x10^3/uL (0.0-0.7) Basophils # (Auto) 0.1 x10^3/uL (0.0-0.2) 0.0 x10^3/uL (0.0-0.2) Sodium Level 135 mmol/L (136-145) 138 mmol/L (136-145) Potassium Level 4.2 mmol/L (3.5-5.1) 4.3 mmol/L (3.5-5.1) Chloride Level 101 mmol/L (98-107) 103 mmol/L (98-107) Carbon Dioxide Level 30 mmol/L (21-32) 31 mmol/L (21-32) Anion Gap 4 (6-14) 4 (6-14) Blood Urea Nitrogen 21 mg/dL (7-20) 26 mg/dL (7-20) Creatinine 0.5 mg/dL (0.6-1.0) 0.5 mg/dL (0.6-1.0) Estimated GFR (Cockcroft-Gault) 118.4 118.4 Glucose Level 125 mg/dL (70-99) 93 mg/dL (70-99) Calcium Level 8.6 mg/dL (8.5-10.1) 8.8 mg/dL (8.5-10.1) Assessment and Plan Assessmemt and Plan Problems Medical Problems: (1) Acute cystitis Status: Acute (2) Acute metabolic encephalopathy Status: Acute (3) Other fatigue Status: Acute Metabolic cephalopathy Possible malingering as she really did not want to go to skilled Weakness Inability to care for herself UTI Nausea/vomiting Gastritis Diverticulosis Also history of the following : hypertension, hyperlipidemia, hypothyroidism, multiple sclerosis and obesity, weakness, uses motorized chair HTN, Hyperlipidemia Plan Awaiting discharge to care home Continue IV Clinimix IV antibiotics Trend labs Encourage p.o. intake Home meds DVT prophylaxis Full code We are hoping to discharge to care home soon Comment Review of Relevant I have reviewed the following items luis felipe (where applicable) has been applied. Medications: Current Medications Medications (Trade) Dose Ordered Sig/Forest Route PRN Reason Start Time Stop Time Status Last Admin Dose Admin Fosphenytoin Sodium (Cerebyx) 200 mg Q12HR IV 06/07/21 23:00 06/08/21 09:33 Justifications for Admission Other Justification ROSE CEDILLO III DO Jun 08, 2021 11:20
--- NOTE | 2021-06-08 12:05 | PDOC2 ---
CONSULT Date of Consult Date of Consult DATE: 06/08/21 TIME: 12:04 Reason for Consult Reason for Consult: seizures Identification/Chief Complaint Chief Complaint seizures AMS History of Present Illness Reason for Visit: 81-year-old woman with past medical history of multiple medical problems who presented to emergency room with not feeling well 2 to 3 days prior to presentation. Patient was previously treated for UTI patient denied any complaint of headache chest pain shortness of breath. Patient denied any complaint of tingling numbness on the face. Patient denied any difficulty speaking. Patient has history of memory problems. Patient was having episodes of confusion was having some twitching in her eyes. Patient did not have any loss of bladder bowel control or tongue bite. Past Medical History Cardiovascular: HTN, Hyperlipidemia Pulmonary: No pertinent hx CENTRAL NERVOUS SYSTEM: Other GI: Other Heme/Onc: No pertinent hx Hepatobiliary: No pertinent hx Psych: No pertinent hx Musculoskeletal: Osteoarthritis Rheumatologic: No pertinent hx Infectious disease: No pertinent hx Renal/: No pertinent hx Endocrine: Hypothyroidism Past Surgical History Past Surgical History: Other Family History Family History: No Significant, High Cholestrol, Hypertension Social History No ALCOHOL: rare Drugs: None Lives: with Family Domestic Violence: Neg Current Problem List Problem List Problems Medical Problems: (1) Acute cystitis Status: Acute (2) Acute metabolic encephalopathy Status: Acute (3) Other fatigue Status: Acute Current Medications Current Medications Current Medications Ondansetron HCl (Zofran) 4 mg 1X ONCE IVP Last administered on 06/02/21at 20:11; Start 06/02/21 at 19:30; Stop 06/02/21 at 19:38; Status DC Sodium Chloride 250 ml @ 500 mls/hr 1X ONCE IV Last administered on 06/02/21 20:08; Start 06/02/21 at 19:30; Stop 06/02/21 at 19:59; Status DC Acetaminophen (Tylenol) 1,000 mg 1X ONCE PO Last administered on 06/02/21 20:11; Start 06/02/21 at 19:30; Stop 06/02/21 at 19:38; Status DC Multi-Ingredient Mouthwash/Gargle (Gi Cocktail) 20 ml 1X ONCE SWSW Last a dministered on 06/02/21at 20:10; Start 06/02/21 at 19:30; Stop 06/02/21 at 19:38; Status DC Ceftriaxone Sodium (Rocephin) 1 gm 1X ONCE IVP Last administered on 06/02/21at 20:08; Start 06/02/21 at 19:45; Stop 06/02/21 at 19:46; Status DC Iohexol (Omnipaque 300 Mg/ml) 75 ml 1X ONCE IV Last administered on 06/02/21at 21:07; Start 06/02/21 at 20:45; Stop 06/02/21 at 20:46; Status DC Sodium Chloride 250 ml @ 500 mls/hr 1X ONCE IV Last administered on 06/02/21at 23:29; Start 06/02/21 at 22:15; Stop 06/02/21 at 22:44; Status DC Ondansetron HCl (Zofran) 4 mg PRN Q8HRS PRN IVP NAUSEA/VOMITING; Start 06/02/21 at 23:45; Stop 06/03/21 at 23:44; Status DC Acetaminophen (Tylenol) 650 mg PRN Q4HRS PRN PO PAIN MILD; Start 06/02/21 at 23:45; Stop 06/03/21 at 23:44; Status DC Potassium Chloride (Klor-Con) 40 meq 1X ONCE PO Last administered on 06/03/21at 12:11; Start 06/03/21 at 11:00; Stop 06/03/21 at 11:01; Status DC Ceftriaxone Sodium (Rocephin) 1 gm Q24H IVP Last administered on 06/07/21at 17:47; Start 06/03/21 at 18:00 Lactobacillus Rhamnosus (Culturelle) 1 cap BID PO Last administered on 06/08/21at 09:33; Start 06/03/21 at 21:00 Acetaminophen (Tylenol) 650 mg PRN Q6HRS PRN PO MILD PAIN / TEMP > 100.3'F Last administered on 06/08/21at 08:22; Start 06/04/21 at 08:30 Amino Acids/ Electrolytes/ Dextrose 1,000 ml @ 80 mls/hr [id number] IV Last administered on 06/08/21at 01:54; Start 06/05/21 at 13:30 Lactobacillus Rhamnosus (Culturelle) 1 cap BID PO ; Start 06/06/21 at 21:00; Status Cancel Fosphenytoin Sodium (Cerebyx) 200 mg Q12HR IV Last administered on 06/08/21at 09:33; Start 06/07/21 at 23:00 Active Scripts Active Amoxicillin-Clav Er 1,000-62.5 (Amoxicillin/Potassium Clav) 1 Each Tab.er.12h 1 Tab PO BID Culturelle (Lactobacillus Rhamnosus Gg) 1 Each Cap.sprink 1 Cap PO BID 30 Days Synthroid (Levothyroxine Sodium) 25 Mcg Tablet 25 Mcg PO DAILY06 30 Days Reported Triamterene-Hctz 37.5-25 Mg Tb (Triamterene/Hydrochlorothiazid) 1 Each Tablet 1 Tab PO DAILY Allergies Allergies: Coded Allergies: chlorhexidine (Verified Allergy, Intermediate, Rash, 12/30/13) codeine (Verified Allergy, Intermediate, RASH AND ITCHING, 12/30/13) aspartame (Verified Adverse Reaction, Severe, WEAKNESS IN LEGS, 12/30/13) atorvastatin (Verified Adverse Reaction, Severe, MYALGIA/LEG WEAKNESS, 12/30/13) Physical Exam Physical Exam General no acute distress. HEENT: Normocephalic and atraumatic. NECK: Supple without bruit Respiratory: Clear to auscultation bilaterally Heart: Regular rate and rhythm, S1S2 normal NEUROLOGIC: Mental status Alert oriented. Cranial nerve equally reactive pupils, and intact extraocular movements. No facial asymmetry. Palate elevates and tongue protrudes in midline. Reflexes are 1-2 with flexor plantar responses. Coordination no dysmetria Strength able to move all exts effort dependent Sensory exam is intact for light touch and pinprick. Gait in bed. A 10-point review of systems was obtained. Other than the history of present illness the remainder of the review of systems is negative. Vitals VITALS Vital Signs Date Time Temp Pulse Resp B/P (MAP) Pulse Ox O2 Delivery O2 Flow Rate FiO2 06/08/21 08:15 Room Air 06/08/21 07:00 98.6 74 18 126/54 (78) 93 98.6 Labs Labs Laboratory Tests Test 06/07/21 12:50 06/08/21 05:00 06/08/21 06:25 White Blood Count 8.4 x10^3/uL (4.0-11.0) 6.0 x10^3/uL (4.0-11.0) Red Blood Count 4.06 x10^6/uL (3.50-5.40) 3.95 x10^6/uL (3.50-5.40) Hemoglobin 12.6 g/dL (12.0-15.5) 12.2 g/dL (12.0-15.5) Hematocrit 37.4 % (36.0-47.0) 37.0 % (36.0-47.0) Mean Corpuscular Volume 92 fL (79-100) 94 fL (79-100) Mean Corpuscular Hemoglobin 31 pg (25-35) 31 pg (25-35) Mean Corpuscular Hemoglobin Concent 34 g/dL (31-37) 33 g/dL (31-37) Red Cell Distribution Width 14.9 % (11.5-14.5) 14.7 % (11.5-14.5) Platelet Count 198 x10^3/uL (140-400) 200 x10^3/uL (140-400) Neutrophils (%) (Auto) 79 % (31-73) 59 % (31-73) Lymphocytes (%) (Auto) 13 % (24-48) 27 % (24-48) Monocytes (%) (Auto) 7 % (0-9) 10 % (0-9) Eosinophils (%) (Auto) 1 % (0-3) 3 % (0-3) Basophils (%) (Auto) 1 % (0-3) 1 % (0-3) Neutrophils # (Auto) 6.6 x10^3/uL (1.8-7.7) 3.5 x10^3/uL (1.8-7.7) Lymphocytes # (Auto) 1.1 x10^3/uL (1.0-4.8) 1.6 x10^3/uL (1.0-4.8) Monocytes # (Auto) 0.6 x10^3/uL (0.0-1.1) 0.6 x10^3/uL (0.0-1.1) Eosinophils # (Auto) 0.1 x10^3/uL (0.0-0.7) 0.2 x10^3/uL (0.0-0.7) Basophils # (Auto) 0.1 x10^3/uL (0.0-0.2) 0.0 x10^3/uL (0.0-0.2) Sodium Level 135 mmol/L (136-145) 138 mmol/L (136-145) Potassium Level 4.2 mmol/L (3.5-5.1) 4.3 mmol/L (3.5-5.1) Chloride Level 101 mmol/L (98-107) 103 mmol/L (98-107) Carbon Dioxide Level 30 mmol/L (21-32) 31 mmol/L (21-32) Anion Gap 4 (6-14) 4 (6-14) Blood Urea Nitrogen 21 mg/dL (7-20) 26 mg/dL (7-20) Creatinine 0.5 mg/dL (0.6-1.0) 0.5 mg/dL (0.6-1.0) Estimated GFR (Cockcroft-Gault) 118.4 118.4 Glucose Level 125 mg/dL (70-99) 93 mg/dL (70-99) Calcium Level 8.6 mg/dL (8.5-10.1) 8.8 mg/dL (8.5-10.1) Laboratory Tests Test 06/07/21 12:50 06/08/21 05:00 06/08/21 06:25 White Blood Count 8.4 x10^3/uL (4.0-11.0) 6.0 x10^3/uL (4.0-11.0) Red Blood Count 4.06 x10^6/uL (3.50-5.40) 3.95 x10^6/uL (3.50-5.40) Hemoglobin 12.6 g/dL (12.0-15.5) 12.2 g/dL (12.0-15.5) Hematocrit 37.4 % (36.0-47.0) 37.0 % (36.0-47.0) Mean Corpuscular Volume 92 fL (79-100) 94 fL (79-100) Mean Corpuscular Hemoglobin 31 pg (25-35) 31 pg (25-35) Mean Corpuscular Hemoglobin Concent 34 g/dL (31-37) 33 g/dL (31-37) Red Cell Distribution Width 14.9 % (11.5-14.5) 14.7 % (11.5-14.5) Platelet Count 198 x10^3/uL (140-400) 200 x10^3/uL (140-400) Neutrophils (%) (Auto) 79 % (31-73) 59 % (31-73) Lymphocytes (%) (Auto) 13 % (24-48) 27 % (24-48) Monocytes (%) (Auto) 7 % (0-9) 10 % (0-9) Eosinophils (%) (Auto) 1 % (0-3) 3 % (0-3) Basophils (%) (Auto) 1 % (0-3) 1 % (0-3) Neutrophils # (Auto) 6.6 x10^3/uL (1.8-7.7) 3.5 x10^3/uL (1.8-7.7) Lymphocytes # (Auto) 1.1 x10^3/uL (1.0-4.8) 1.6 x10^3/uL (1.0-4.8) Monocytes # (Auto) 0.6 x10^3/uL (0.0-1.1) 0.6 x10^3/uL (0.0-1.1) Eosinophils # (Auto) 0.1 x10^3/uL (0.0-0.7) 0.2 x10^3/uL (0.0-0.7) Basophils # (Auto) 0.1 x10^3/uL (0.0-0.2) 0.0 x10^3/uL (0.0-0.2) Sodium Level 135 mmol/L (136-145) 138 mmol/L (136-145) Potassium Level 4.2 mmol/L (3.5-5.1) 4.3 mmol/L (3.5-5.1) Chloride Level 101 mmol/L (98-107) 103 mmol/L (98-107) Carbon Dioxide Level 30 mmol/L (21-32) 31 mmol/L (21-32) Anion Gap 4 (6-14) 4 (6-14) Blood Urea Nitrogen 21 mg/dL (7-20) 26 mg/dL (7-20) Creatinine 0.5 mg/dL (0.6-1.0) 0.5 mg/dL (0.6-1.0) Estimated GFR (Cockcroft-Gault) 118.4 118.4 Glucose Level 125 mg/dL (70-99) 93 mg/dL (70-99) Calcium Level 8.6 mg/dL (8.5-10.1) 8.8 mg/dL (8.5-10.1) Assessment/Plan Assessment/Plan 81-year-old woman with past medical history of multiple medical problems who presented to emergency room with not feeling well 2 to 3 days prior to presentation. Patient was previously treated for UTI patient denied any complaint of headache chest pain shortness of breath. Patient denied any complaint of tingling numbness on the face. Patient denied any difficulty speaking. Patient has history of memory problems. Patient was having episodes of confusion was having some twitching in her eyes. Patient did not have any l oss of bladder bowel control or tongue bite. 81-year-old woman with past medical history of multiple medical problems with metabolic encephalopathy, hypertension hyperlipidemia hypothyroidism multiple sclerosis obesity urinary tract infection, some spells concerning for seizure- like activity patient was started on Dilantin. Patient had improvement in symptoms. No new clinical seizures. CT scan done brain did not show any evidence of acute intracranial injury no evidence of acute hemorrhage or mass changes noted for chronic small vessel ischemic disease. Neuro exam stable. Further work-up outpatient, further memory evaluation outpatient. PT OT evaluation. Continue medical management. She will follow up in neurology clinic. Thank you for allowing me to take part in this patient's care. Please not hesitate to contact me with questions. Transcribed using dictation device. The dictation could contain irregularities inherent in the voice to text conversion software, which may not be detected during the document review process. Please contact our office in case of any confusion or for any clarification, as needed. ASHLEY DOUGLAS MD Jun 08, 2021 12:05
[2021-06-08 15:00] VITALS: BP 156/63
[2021-06-08] MEDS: cefTRIAXone IV Push 1 GM VIAL. IVP SCH (18:11)
[2021-06-08 19:15] VITALS: BP 150/56
--- NOTE | 2021-06-08 20:15 | NUR ---
At 1999 daughter called to report that pt had called her to say that anxiety was coming back and that was afraid that she (pt) would go back into the sleep paralysis. RN got pt meds - Clarisa to give to pt. When RN took meds in the room and explained what they were for pt stated would not take them. RN informed pt that daughter had called to check on her. Pt stated, " My daughter wouldn't call you." RN reassured pt that daughter had called - pt then stated, "Call her" pointing to personal cell phone. While all this occurring pt responses slower and slower and pt refusing to make eye contact. Pt stated that she did not believe the pills would help her. mitigation supervisor called to request that pt daughter be allowed to come in to see pt and assist with getting pt to take meds. Will continue to monitor pt status closely Addendum: 06/08/21 at 2344 by CLAYTON NOBLE RN RN Daughter arrived around 2200 and went into room to talk to mother. Daughter reported that pt did look at her once and asked to have her dentures put in a "bath" but daughter reported pt went back to staring at ceiling and would no longer respond. RN entered room around 2235 to get pt VS and check on pt - sternal rub done forcefully and pt did not even flinch. RN and daughter agreed that pt seemed to be back in the sleep paralysis mode. Pt incontinent and cleaned up - no response whatsoever to cares. Turned to L side and will continue to monitor closely.
[2021-06-08] MEDS ORDERED: PHENYTOIN SODIUM EXTENDED 100 MG CAPSULE PO SCH (21:00)
[2021-06-08 22:35] VITALS: BP 110/62
[2021-06-09 03:07] VITALS: BP 158/68
[2021-06-09] MEDS: AA 4.25 %/CALCIUM/LYTES/D5W 1,000 ML IV SCH ×2 (03:50→16:27)
[2021-06-09 07:00] VITALS: BP 173/72
[2021-06-09 07:50] LABS: BASO % 1 % (0-3); EOS # 0.2 x10^3/uL (0.0-0.7); EOS % 3 % (0-3); HEMOGLOBIN 12.6 g/dL (12.0-15.5); LYMPH # 1.4 x10^3/uL (1.0-4.8); LYMPH % 25 % (24-48); MEAN CORPUSCULAR HEMOGLOBIN 32 pg (25-35); MEAN CORPUSCULAR HGB CONC 34 g/dL (31-37); MEAN CORPUSCULAR VOLUME 93 fL (79-100); MONO # 0.5 x10^3/uL (0.0-1.1); MONO % 9 % (0-9); NEUT # 3.6 x10^3/uL (1.8-7.7); NEUT % 62 % (31-73); PLATELET COUNT 192 x10^3/uL (140-400); RED CELL DISTRIBUTION WIDTH 14.8 % (11.5-14.5); WHITE BLOOD COUNT 5.8 x10^3/uL (4.0-11.0)
[2021-06-09 07:59] LABS: CALCIUM 8.7 mg/dL (8.5-10.1); CREATININE 0.5 mg/dL (0.6-1.0); GFR 118.4; POTASSIUM 3.8 mmol/L (3.5-5.1)
[2021-06-09 11:00] VITALS: BP 144/64
--- NOTE | 2021-06-09 11:40 | PDOC ---
PROGRESS NOTES DOS: DATE: 06/09/21 TIME: 11:39 Assessment Problems Medical Problems: (1) Acute cystitis Status: Acute (2) Acute metabolic encephalopathy Status: Acute (3) Other fatigue Status: Acute Plan 81-year-old woman with past medical history of multiple medical problems who presented to emergency room with not feeling well 2 to 3 days prior to presentation. Patient was previously treated for UTI patient denied any complaint of headache chest pain shortness of breath. Patient denied any complaint of tingling numbness on the face. Patient denied any difficulty speaking. Patient has history of memory problems. Patient was having episodes of confusion was having some twitching in her eyes. Patient did not have any loss of bladder bowel control or tongue bite. 81-year-old woman with past medical history of multiple medical problems with metabolic encephalopathy, hypertension hyperlipidemia hypothyroidism multiple sclerosis obesity urinary tract infection, some spells concerning for seizure- like activity patient was started on Dilantin. Patient had improvement in symptoms. No new clinical seizures. CT scan done brain did not show any evidence of acute intracranial injury no evidence of acute hemorrhage or mass changes noted for chronic small vessel ischemic disease. Neuro exam stable. Further work-up outpatient, further memory evaluation outpatient. PT OT evaluation. Neuro exam stable. Continue medical management. She will follow up in neurology clinic. Thank you for allowing me to take part in this patient's care. Please not hesitate to contact me with questions. Transcribed using dictation device. The dictation could contain irregularities inherent in the voice to text conversion software, which may not be detected during the document review process. Please contact our office in case of any confusion or for any clarification, as needed. Subjective patient resting in bed. Family at bedside. She denies any complaint of headache nausea vomiting chest pain. She is feeling better Objective Vital Signs Date Time Temp Pulse Resp B/P (MAP) Pulse Ox O2 Delivery O2 Flow Rate FiO2 06/09/21 11:00 98.4 73 18 144/64 (90) 96 Room Air 98.4 Intake and Output 06/09/21 07:00 Intake Total 1000 ml Balance 1000 ml Intake Oral 0 ml IV Total 1000 ml # Voids 6 # Bowel Movements 2 PHYSICAL EXAM General no acute distress. HEENT: Normocephalic and atraumatic. NECK: Supple without bruit Respiratory: Clear to auscultation bilaterally Heart: Regular rate and rhythm, S1S2 normal NEUROLOGIC: Mental status Alert oriented. Cranial nerve equally reactive pupils, and intact extraocular movements. No facial asymmetry. Palate elevates and tongue protrudes in midline. Reflexes are 1-2 with flexor plantar responses. Coordination no dysmetria Strength able to move all exts effort dependent Sensory exam is intact for light touch and pinprick. Gait in bed. A 10-point review of systems was obtained. Other than the history of present illness the remainder of the review of systems is negative. Review of Relevant I have reviewed the following items luis felipe (where applicable) has been applied. Labs Laboratory Tests Test 06/07/21 12:50 06/08/21 05:00 06/08/21 06:25 06/09/21 06:40 White Blood Count 8.4 x10^3/uL (4.0-11.0) 6.0 x10^3/uL (4.0-11.0) 5.8 x10^3/uL (4.0-11.0) Red Blood Count 4.06 x10^6/uL (3.50-5.40) 3.95 x10^6/uL (3.50-5.40) 4.00 x10^6/uL (3.50-5.40) Hemoglobin 12.6 g/dL (12.0-15.5) 12.2 g/dL (12.0-15.5) 12.6 g/dL (12.0-15.5) Hematocrit 37.4 % (36.0-47.0) 37.0 % (36.0-47.0) 37.0 % (36.0-47.0) Mean Corpuscular Volume 92 fL (79-100) 94 fL (79-100) 93 fL (79-100) Mean Corpuscular Hemoglobin 31 pg (25-35) 31 pg (25-35) 32 pg (25-35) Mean Corpuscular Hemoglobin Concent 34 g/dL (31-37) 33 g/dL (31-37) 34 g/dL (31-37) Red Cell Distribution Width 14.9 % (11.5-14.5) 14.7 % (11.5-14.5) 14.8 % (11.5-14.5) Platelet Count 198 x10^3/uL (140-400) 200 x10^3/uL (140-400) 192 x10^3/uL (140-400) Neutrophils (%) (Auto) 79 % (31-73) 59 % (31-73) 62 % (31-73) Lymphocytes (%) (Auto) 13 % (24-48) 27 % (24-48) 25 % (24-48) Monocytes (%) (Auto) 7 % (0-9) 10 % (0-9) 9 % (0-9) Eosinophils (%) (Auto) 1 % (0-3) 3 % (0-3) 3 % (0-3) Basophils (%) (Auto) 1 % (0-3) 1 % (0-3) 1 % (0-3) Neutrophils # (Auto) 6.6 x10^3/uL (1.8-7.7) 3.5 x10^3/uL (1.8-7.7) 3.6 x10^3/uL (1.8-7.7) Lymphocytes # (Auto) 1.1 x10^3/uL (1.0-4.8) 1.6 x10^3/uL (1.0-4.8) 1.4 x10^3/uL (1.0-4.8) Monocytes # (Auto) 0.6 x10^3/uL (0.0-1.1) 0.6 x10^3/uL (0.0-1.1) 0.5 x10^3/uL (0.0-1.1) Eosinophils # (Auto) 0.1 x10^3/uL (0.0-0.7) 0.2 x10^3/uL (0.0-0.7) 0.2 x10^3/uL (0.0-0.7) Basophils # (Auto) 0.1 x10^3/uL (0.0-0.2) 0.0 x10^3/uL (0.0-0.2) 0.0 x10^3/uL (0.0-0.2) Sodium Level 135 mmol/L (136-145) 138 mmol/L (136-145) 136 mmol/L (136-145) Potassium Level 4.2 mmol/L (3.5-5.1) 4.3 mmol/L (3.5-5.1) 3.8 mmol/L (3.5-5.1) Chloride Level 101 mmol/L (98-107) 103 mmol/L (98-107) 102 mmol/L (98-107) Carbon Dioxide Level 30 mmol/L (21-32) 31 mmol/L (21-32) 29 mmol/L (21-32) Anion Gap 4 (6-14) 4 (6-14) 5 (6-14) Blood Urea Nitrogen 21 mg/dL (7-20) 26 mg/dL (7-20) 20 mg/dL (7-20) Creatinine 0.5 mg/dL (0.6-1.0) 0.5 mg/dL (0.6-1.0) 0.5 mg/dL (0.6-1.0) Estimated GFR (Cockcroft-Gault) 118.4 118.4 118.4 Glucose Level 125 mg/dL (70-99) 93 mg/dL (70-99) 106 mg/dL (70-99) Calcium Level 8.6 mg/dL (8.5-10.1) 8.8 mg/dL (8.5-10.1) 8.7 mg/dL (8.5-10.1) Laboratory Tests Test 06/09/21 06:40 White Blood Count 5.8 x10^3/uL (4.0-11.0) Red Blood Count 4.00 x10^6/uL (3.50-5.40) Hemoglobin 12.6 g/dL (12.0-15.5) Hematocrit 37.0 % (36.0-47.0) Mean Corpuscular Volume 93 fL (79-100) Mean Corpuscular Hemoglobin 32 pg (25-35) Mean Corpuscular Hemoglobin Concent 34 g/dL (31-37) Red Cell Distribution Width 14.8 % (11.5-14.5) Platelet Count 192 x10^3/uL (140-400) Neutrophils (%) (Auto) 62 % (31-73) Lymphocytes (%) (Auto) 25 % (24-48) Monocytes (%) (Auto) 9 % (0-9) Eosinophils (%) (Auto) 3 % (0-3) Basophils (%) (Auto) 1 % (0-3) Neutrophils # (Auto) 3.6 x10^3/uL (1.8-7.7) Lymphocytes # (Auto) 1.4 x10^3/uL (1.0-4.8) Monocytes # (Auto) 0.5 x10^3/uL (0.0-1.1) Eosinophils # (Auto) 0.2 x10^3/uL (0.0-0.7) Basophils # (Auto) 0.0 x10^3/uL (0.0-0.2) Sodium Level 136 mmol/L (136-145) Potassium Level 3.8 mmol/L (3.5-5.1) Chloride Level 102 mmol/L (98-107) Carbon Dioxide Level 29 mmol/L (21-32) Anion Gap 5 (6-14) Blood Urea Nitrogen 20 mg/dL (7-20) Creatinine 0.5 mg/dL (0.6-1.0) Estimated GFR (Cockcroft-Gault) 118.4 Glucose Level 106 mg/dL (70-99) Calcium Level 8.7 mg/dL (8.5-10.1) Microbiology 06/02/21 Blood Culture - Final, Complete NO GROWTH AFTER 5 DAYS Medications Current Medications Ondansetron HCl (Zofran) 4 mg 1X ONCE IVP Last administered on 06/02/21 20:11; Start 06/02/21 at 19:30; Stop 06/02/21 at 19:38; Status DC Sodium Chloride 250 ml @ 500 mls/hr 1X ONCE IV Last administered on 06/02/21 20:08; Start 06/02/21 at 19:30; Stop 06/02/21 at 19:59; Status DC Acetaminophen (Tylenol) 1,000 mg 1X ONCE PO Last administered on 06/02/21 20:11; Start 06/02/21 at 19:30; Stop 06/02/21 at 19:38; Status DC Multi-Ingredient Mouthwash/Gargle (Gi Cocktail) 20 ml 1X ONCE SWSW Last administered on 06/02/21at 20:10; Start 06/02/21 at 19:30; Stop 06/02/21 at 19:38; Status DC Ceftriaxone Sodium (Rocephin) 1 gm 1X ONCE IVP Last administered on 06/02/21at 20:08; Start 06/02/21 at 19:45; Stop 06/02/21 at 19:46; Status DC Iohexol (Omnipaque 300 Mg/ml) 75 ml 1X ONCE IV Last administered on 06/02/21at 21:07; Start 06/02/21 at 20:45; Stop 06/02/21 at 20:46; Status DC Sodium Chloride 250 ml @ 500 mls/hr 1X ONCE IV Last administered on 06/02/21at 23:29; Start 06/02/21 at 22:15; Stop 06/02/21 at 22:44; Status DC Ondansetron HCl (Zofran) 4 mg PRN Q8HRS PRN IVP NAUSEA/VOMITING; Start 06/02/21 at 23:45; Stop 06/03/21 at 23:44; Status DC Acetaminophen (Tylenol) 650 mg PRN Q4HRS PRN PO PAIN MILD; Start 06/02/21 at 23:45; Stop 06/03/21 at 23:44; Status DC Potassium Chloride (Klor-Con) 40 meq 1X ONCE PO Last administered on 06/03/21at 12:11; Start 06/03/21 at 11:00; Stop 06/03/21 at 11:01; Status DC Ceftriaxone Sodium (Rocephin) 1 gm Q24H IVP Last administered on 06/08/21at 18:11; Start 06/03/21 at 18:00; Stop 06/08/21 at 18:01; Status DC Lactobacillus Rhamnosus (Culturelle) 1 cap BID PO Last administered on 06/08/21at 20:03; Start 06/03/21 at 21:00 Acetaminophen (Tylenol) 650 mg PRN Q6HRS PRN PO MILD PAIN / TEMP > 100.3'F Last administered on 06/08/21at 08:22; Start 06/04/21 at 08:30 Amino Acids/ Electrolytes/ Dextrose 1,000 ml @ 80 mls/hr [id number] IV Last administered on 06/09/21at 03:50; Start 06/05/21 at 13:30 Lactobacillus Rhamnosus (Culturelle) 1 cap BID PO ; Start 06/06/21 at 21:00; Status Cancel Fosphenytoin Sodium (Cerebyx) 200 mg Q12HR IV Last administered on 06/08/21at 09:33; Start 06/07/21 at 23:00; Stop 06/08/21 at 16:14; Status DC Phenytoin Sodium (Dilantin) 300 mg HS PO Last administered on 06/08/21at 20:02; Start 06/08/21 at 21:00 Active Scripts Active Amoxicillin-Clav Er 1,000-62.5 (Amoxicillin/Potassium Clav) 1 Each Tab.er.12h 1 Tab PO BID Culturelle (Lactobacillus Rhamnosus Gg) 1 Each Cap.sprink 1 Cap PO BID 30 Days Synthroid (Levothyroxine Sodium) 25 Mcg Tablet 25 Mcg PO DAILY06 30 Days Reported Triamterene-Hctz 37.5-25 Mg Tb (Triamterene/Hydrochlorothiazid) 1 Each Tablet 1 Tab PO DAILY Vitals/I & O Vital Sign - Last 24 Hours 06/08/21 06/08/21 06/08/21 06/09/21 15:00 19:15 22:35 03:07 Temp 98.0 98.8 98.6 98.1 98.0 98.8 98.6 98.1 Pulse 75 78 81 83 Resp 18 22 24 18 B/P (MAP) 156/63 (94) 150/56 (87) 110/62 (78) 158/68 (98) Pulse Ox 94 96 90 97 O2 Delivery Room Air Room Air Room Air Room Air 06/09/21 06/09/21 06/09/21 07:00 07:45 11:00 Temp 98.4 98.4 98.4 98.4 Pulse 79 73 Resp 16 18 B/P (MAP) 173/72 (105) 144/64 (90) Pulse Ox 94 96 O2 Delivery Room Air Room Air Room Air Intake and Output 06/08/21 06/08/21 06/09/21 15:00 23:00 07:00 Intake Total 1000 ml 0 ml 0 ml Balance 1000 ml 0 ml 0 ml Justicifation of Admission Dx: Justifications for Admission: Justification of Admission Dx: Yes Sepsis: Altered Mental Status ASHLEY DOUGLAS MD Jun 09, 2021 11:39
[2021-06-09] MEDS: LACTOBACILLUS RHAMNOSUS GG 1 CAPSULE. PO SCH ×2 (12:55→20:30)
--- NOTE | 2021-06-09 14:22 | PDOC ---
[facility] PROGRESS NOTE Date of Service DOS: DATE: 06/09/21 TIME: 14:21 Chief Complaint Chief Complaint Metabolic cephalopathy Possible seizure-like activity question UTI Nausea and vomiting Gastritis Diverticulosis Inability to care for herself Also history of the following semi- hypertension, hyperlipidemia, hypothyroidism, multiple sclerosis and obesity, weakness, uses motorized chair HTN, Hyperlipidemia History of Present Illness History of Present Illness 06/09/2021 Patient seen and examined She is more alert this morning but apparently through the night had some confusion and another episode of nonresponsiveness Her friend is present seems to be good support for her Chart reviewed Discussed with RN 06/08/2021 Patient seen and examined She is on the phone and alert Discussed with RN I spoke with her brother Nba on the phone Chart reviewed She seems to be at her baseline we could probably go ahead and get her to alf sometime soon 06/07/2021 Patient seen and examined Discussed with RN Discussed with case management Chart reviewed Currently patient is refusing to cooperate with physical exam Clinching her arms wallaby pull them open clenching her eyes show I will let me open them (she did the same thing a few days ago CT of the head was negative then) Suspect she is lonely and just does not want to go to alf? 06/07/2019 Patient seen and examined Resting with NAD Has IV Clinimix hanging Discussed with RN Discussed with case management Chart reviewed We are hoping to discharge her to alf soon 06/05/2021 Patient seen and examined Discussed with RN Discussed with case assembler Chart reviewed The patient remains very weak and pleasantly confused 81-year-old female, ,lives in her own house and was admiteed from the ER last for not feeling well. She had recent UTI, and was on oral abx, treated by Dr. Le, but she has had more trouble with weakness recently. compalins that over days, she had become progressively more confused, but feels much btter this AM. She is not having any pain, and reports feeling better, but is worried abotu her weakness. 5 days ago was startede on cephalosporin for UTI and then had weakness, confusion and nausea, and was not eating much. Vitals/I&O Vitals/I&O: Vital Signs Date Time Temp Pulse Resp B/P (MAP) Pulse Ox O2 Delivery O2 Flow Rate FiO2 06/09/21 11:00 98.4 73 18 144/64 (90) 96 Room Air 98.4 I & O 06/08/21 06/08/21 06/09/21 15:00 23:00 07:00 Intake Total 1000 ml 0 ml 0 ml Balance 1000 ml 0 ml 0 ml Physical Exam General: No acute distress Heart: Regular rate Lungs: Clear Abdomen: Normal bowel sounds Extremities: No cyanosis, Other (2+ edema, muscle wasting, weakness , ) Skin: No breakdown Labs Labs: Laboratory Tests Test 06/09/21 06:40 White Blood Count 5.8 x10^3/uL (4.0-11.0) Red Blood Count 4.00 x10^6/uL (3.50-5.40) Hemoglobin 12.6 g/dL (12.0-15.5) Hematocrit 37.0 % (36.0-47.0) Mean Corpuscular Volume 93 fL (79-100) Mean Corpuscular Hemoglobin 32 pg (25-35) Mean Corpuscular Hemoglobin Concent 34 g/dL (31-37) Red Cell Distribution Width 14.8 % (11.5-14.5) Platelet Count 192 x10^3/uL (140-400) Neutrophils (%) (Auto) 62 % (31-73) Lymphocytes (%) (Auto) 25 % (24-48) Monocytes (%) (Auto) 9 % (0-9) Eosinophils (%) (Auto) 3 % (0-3) Basophils (%) (Auto) 1 % (0-3) Neutrophils # (Auto) 3.6 x10^3/uL (1.8-7.7) Lymphocytes # (Auto) 1.4 x10^3/uL (1.0-4.8) Monocytes # (Auto) 0.5 x10^3/uL (0.0-1.1) Eosinophils # (Auto) 0.2 x10^3/uL (0.0-0.7) Basophils # (Auto) 0.0 x10^3/uL (0.0-0.2) Sodium Level 136 mmol/L (136-145) Potassium Level 3.8 mmol/L (3.5-5.1) Chloride Level 102 mmol/L (98-107) Carbon Dioxide Level 29 mmol/L (21-32) Anion Gap 5 (6-14) Blood Urea Nitrogen 20 mg/dL (7-20) Creatinine 0.5 mg/dL (0.6-1.0) Estimated GFR (Cockcroft-Gault) 118.4 Glucose Level 106 mg/dL (70-99) Calcium Level 8.7 mg/dL (8.5-10.1) Assessment and Plan Assessmemt and Plan Problems Medical Problems: (1) Acute cystitis Status: Acute (2) Acute metabolic encephalopathy Status: Acute (3) Other fatigue Status: Acute Metabolic cephalopathy Possible seizure-like activity? Possible malingering as she really did not want to go to skilled ? Weakness Inability to care for herself UTI Nausea/vomiting Gastritis Diverticulosis Also history of the following : hypertension, hyperlipidemia, hypothyroidism, multiple sclerosis and obesity, weakness, uses motorized chair HTN, Hyperlipidemia Plan She was started on Dilantin per neurology we certainly agree and appreciate their input For now continue the following; Awaiting discharge to alf Continue IV Clinimix IV antibiotics Trend labs Encourage p.o. intake Home meds DVT prophylaxis Full code We are hoping to discharge to alf soon Comment Review of Relevant I have reviewed the following items luis felipe (where applicable) has been applied. Medications: Current Medications Medications (Trade) Dose Ordered Sig/Forest Route PRN Reason Start Time Stop Time Status Last Admin Dose Admin Phenytoin Sodium (Dilantin) 300 mg HS PO 06/08/21 21:00 06/08/21 20:02 Justifications for Admission Other Justification ROSE CEDILLO III DO Jun 09, 2021 14:22
[2021-06-09 14:59] VITALS: BP 116/74
[2021-06-09 19:29] VITALS: BP 131/57
[2021-06-09] MEDS ORDERED: PHENYTOIN SODIUM EXTENDED 100 MG CAPSULE PO SCH (21:00)
[2021-06-09 22:40] VITALS: BP 138/57
[2021-06-10 02:56] VITALS: BP 149/66
[2021-06-10] MEDS: AA 4.25 %/CALCIUM/LYTES/D5W 1,000 ML IV SCH ×2 (03:48→21:34)
[2021-06-10 05:32] LABS: BASO # 0.1 x10^3/uL (0.0-0.2); BASO % 1 % (0-3); EOS # 0.3 x10^3/uL (0.0-0.7); EOS % 4 % (0-3); HEMATOCRIT 36.4 % (36.0-47.0); HEMOGLOBIN 12.3 g/dL (12.0-15.5); LYMPH # 1.3 x10^3/uL (1.0-4.8); LYMPH % 20 % (24-48); MEAN CORPUSCULAR HEMOGLOBIN 32 pg (25-35); MEAN CORPUSCULAR HGB CONC 34 g/dL (31-37); MEAN CORPUSCULAR VOLUME 94 fL (79-100); MONO # 0.6 x10^3/uL (0.0-1.1); MONO % 9 % (0-9); NEUT # 4.5 x10^3/uL (1.8-7.7); NEUT % 67 % (31-73); PLATELET COUNT 211 x10^3/uL (140-400); RED BLOOD COUNT 3.88 x10^6/uL (3.50-5.40); RED CELL DISTRIBUTION WIDTH 14.7 % (11.5-14.5); WHITE BLOOD COUNT 6.8 x10^3/uL (4.0-11.0)
[2021-06-10 05:45] LABS: CALCIUM 8.6 mg/dL (8.5-10.1); CREATININE 0.5 mg/dL (0.6-1.0); GFR 118.4; POTASSIUM 3.5 mmol/L (3.5-5.1)
[2021-06-10 07:30] VITALS: BP 130/70
[2021-06-10] MEDS: LACTOBACILLUS RHAMNOSUS GG 1 CAPSULE. PO SCH ×2 (08:39→21:33)
--- NOTE | 2021-06-10 08:55 | PDOC ---
[facility] PROGRESS NOTE Date of Service DOS: DATE: 06/10/21 TIME: 08:53 Chief Complaint Chief Complaint Metabolic cephalopathy Possible seizure-like activity question UTI Nausea and vomiting Gastritis Diverticulosis Inability to care for herself Also history of the following semi- hypertension, hyperlipidemia, hypothyroidism, multiple sclerosis and obesity, weakness, uses motorized chair HTN, Hyperlipidemia History of Present Illness History of Present Illness 06/10: Patient seen and evaluated bedside. Urine culture negative; she denies any further dysuria. Was previously on Dilantin, now on Keppra. Will prescribe on discharge. PT recommending SNF; the patient is agreeable. I believe this can happen today. Greater than 30 minutes spent managing discharge this patie nt. 06/09/2021 Patient seen and examined She is more alert this morning but apparently through the night had some confusion and another episode of nonresponsiveness Her friend is present seems to be good support for her Chart reviewed Discussed with RN 06/08/2021 Patient seen and examined She is on the phone and alert Discussed with RN I spoke with her brother Nba on the phone Chart reviewed She seems to be at her baseline we could probably go ahead and get her to [facility] sometime soon 06/07/2021 Patient seen and examined Discussed with RN Discussed with case management Chart reviewed Currently patient is refusing to cooperate with physical exam Clinching her arms wallaby pull them open clenching her eyes show I will let me open them (she did the same thing a few days ago CT of the head was negative then) Suspect she is lonely and just does not want to go to [facility]? 06/07/2019 Patient seen and examined Resting with NAD Has IV Clinimix hanging Discussed with RN Discussed with case management Chart reviewed We are hoping to discharge her to [facility] soon 06/05/2021 Patient seen and examined Discussed with RN Discussed with field nurse case manager Chart reviewed The patient remains very weak and pleasantly confused 81-year-old female, ,lives in her own house and was admiteed from the ER last for not feeling well. She had recent UTI, and was on oral abx, treated by Dr. Le, but she has had more trouble with weakness recently. compalins that over days, she had become progressively more confused, but feels much btter this AM. She is not having any pain, and reports feeling better, but is worried abotu her weakness. 5 days ago was startede on cephalosporin for UTI and then had weakness, confusion and nausea, and was not eating much. Vitals/I&O Vitals/I&O: Vital Signs Date Time Temp Pulse Resp B/P (MAP) Pulse Ox O2 Delivery O2 Flow Rate FiO2 06/10/21 07:30 99.5 82 16 130/70 (90) 96 Room Air 99.5 I & O 0 06/09/21 06/09/21 06/10/21 15:00 23:00 07:00 Intake Total 1000 ml 0 ml Balance 1000 ml 0 ml Physical Exam General: Alert, No acute distress Heart: Regular rate Lungs: Clear Abdomen: Normal bowel sounds Extremities: No cyanosis, Other (2+ edema, muscle wasting, weakness , ) Skin: No breakdown Labs Labs: Laboratory Tests Test 06/10/21 04:25 White Blood Count 6.8 x10^3/uL (4.0-11.0) Red Blood Count 3.88 x10^6/uL (3.50-5.40) Hemoglobin 12.3 g/dL (12.0-15.5) Hematocrit 36.4 % (36.0-47.0) Mean Corpuscular Volume 94 fL (79-100) Mean Corpuscular Hemoglobin 32 pg (25-35) Mean Corpuscular Hemoglobin Concent 34 g/dL (31-37) Red Cell Distribution Width 14.7 % (11.5-14.5) Platelet Count 211 x10^3/uL (140-400) Neutrophils (%) (Auto) 67 % (31-73) Lymphocytes (%) (Auto) 20 % (24-48) Monocytes (%) (Auto) 9 % (0-9) Eosinophils (%) (Auto) 4 % (0-3) Basophils (%) (Auto) 1 % (0-3) Neutrophils # (Auto) 4.5 x10^3/uL (1.8-7.7) Lymphocytes # (Auto) 1.3 x10^3/uL (1.0-4.8) Monocytes # (Auto) 0.6 x10^3/uL (0.0-1.1) Eosinophils # (Auto) 0.3 x10^3/uL (0.0-0.7) Basophils # (Auto) 0.1 x10^3/uL (0.0-0.2) Sodium Level 137 mmol/L (136-145) Potassium Level 3.5 mmol/L (3.5-5.1) Chloride Level 104 mmol/L (98-107) Carbon Dioxide Level 30 mmol/L (21-32) Anion Gap 3 (6-14) Blood Urea Nitrogen 21 mg/dL (7-20) Creatinine 0.5 mg/dL (0.6-1.0) Estimated GFR (Cockcroft-Gault) 118.4 Glucose Level 100 mg/dL (70-99) Calcium Level 8.6 mg/dL (8.5-10.1) Assessment and Plan Assessmemt and Plan Problems Medical Problems: (1) Acute cystitis Status: Acute (2) Acute metabolic encephalopathy Status: Acute (3) Other fatigue Status: Acute Comment Review of Relevant I have reviewed the following items luis felipe (where applicable) has been applied. Medications: Current Medications Medications (Trade) Dose Ordered Sig/Forest Route PRN Reason Start Time Stop Time Status Last Admin Dose Admin Phenytoin Sodium (Dilantin) 400 mg HS PO 06/09/21 21:00 06/10/21 08:43 DC 06/09/21 20:30 Justifications for Admission Other Justification IVY CRAIG MD Jun 10, 2021 08:55
--- NOTE | 2021-06-10 08:56 | PDOC3 ---
Discharge Summary Visit Information Date of Admission: Jun 03, 2021 Date of Discharge: Jun 11, 2021 Final Diagnosis Problems Medical Problems: (1) Acute cystitis Status: Acute (2) Acute metabolic encephalopathy Status: Acute (3) Other fatigue Status: Acute Brief Hospital Course Allergies Allergies Coded Allergies Type Severity Reaction Last Updated Verified chlorhexidine Allergy Intermediate Rash 12/30/13 Yes codeine Allergy Intermediate RASH AND ITCHING 12/30/13 Yes aspartame Adverse Reaction Severe WEAKNESS IN LEGS 12/30/13 Yes atorvastatin Adverse Reaction Severe MYALGIA/LEG WEAKNESS 12/30/13 Yes Vital Signs Vital Signs Date Time Temp Pulse Resp B/P (MAP) Pulse Ox O2 Delivery O2 Flow Rate FiO2 06/10/21 07:30 99.5 82 16 130/70 (90) 96 Room Air 99.5 Lab Results Laboratory Tests Test 06/09/21 06:40 06/10/21 04:25 White Blood Count 5.8 x10^3/uL (4.0-11.0) 6.8 x10^3/uL (4.0-11.0) Red Blood Count 4.00 x10^6/uL (3.50-5.40) 3.88 x10^6/uL (3.50-5.40) Hemoglobin 12.6 g/dL (12.0-15.5) 12.3 g/dL (12.0-15.5) Hematocrit 37.0 % (36.0-47.0) 36.4 % (36.0-47.0) Mean Corpuscular Volume 93 fL (79-100) 94 fL (79-100) Mean Corpuscular Hemoglobin 32 pg (25-35) 32 pg (25-35) Mean Corpuscular Hemoglobin Concent 34 g/dL (31-37) 34 g/dL (31-37) Red Cell Distribution Width 14.8 % (11.5-14.5) 14.7 % (11.5-14.5) Platelet Count 192 x10^3/uL (140-400) 211 x10^3/uL (140-400) Neutrophils (%) (Auto) 62 % (31-73) 67 % (31-73) Lymphocytes (%) (Auto) 25 % (24-48) 20 % (24-48) Monocytes (%) (Auto) 9 % (0-9) 9 % (0-9) Eosinophils (%) (Auto) 3 % (0-3) 4 % (0-3) Basophils (%) (Auto) 1 % (0-3) 1 % (0-3) Neutrophils # (Auto) 3.6 x10^3/uL (1.8-7.7) 4.5 x10^3/uL (1.8-7.7) Lymphocytes # (Auto) 1.4 x10^3/uL (1.0-4.8) 1.3 x10^3/uL (1.0-4.8) Monocytes # (Auto) 0.5 x10^3/uL (0.0-1.1) 0.6 x10^3/uL (0.0-1.1) Eosinophils # (Auto) 0.2 x10^3/uL (0.0-0.7) 0.3 x10^3/uL (0.0-0.7) Basophils # (Auto) 0.0 x10^3/uL (0.0-0.2) 0.1 x10^3/uL (0.0-0.2) Sodium Level 136 mmol/L (136-145) 137 mmol/L (136-145) Potassium Level 3.8 mmol/L (3.5-5.1) 3.5 mmol/L (3.5-5.1) Chloride Level 102 mmol/L (98-107) 104 mmol/L (98-107) Carbon Dioxide Level 29 mmol/L (21-32) 30 mmol/L (21-32) Anion Gap 5 (6-14) 3 (6-14) Blood Urea Nitrogen 20 mg/dL (7-20) 21 mg/dL (7-20) Creatinine 0.5 mg/dL (0.6-1.0) 0.5 mg/dL (0.6-1.0) Estimated GFR (Cockcroft-Gault) 118.4 118.4 Glucose Level 106 mg/dL (70-99) 100 mg/dL (70-99) Calcium Level 8.7 mg/dL (8.5-10.1) 8.6 mg/dL (8.5-10.1) Laboratory Tests Test 06/10/21 04:25 White Blood Count 6.8 x10^3/uL (4.0-11.0) Red Blood Count 3.88 x10^6/uL (3.50-5.40) Hemoglobin 12.3 g/dL (12.0-15.5) Hematocrit 36.4 % (36.0-47.0) Mean Corpuscular Volume 94 fL (79-100) Mean Corpuscular Hemoglobin 32 pg (25-35) Mean Corpuscular Hemoglobin Concent 34 g/dL (31-37) Red Cell Distribution Width 14.7 % (11.5-14.5) Platelet Count 211 x10^3/uL (140-400) Neutrophils (%) (Auto) 67 % (31-73) Lymphocytes (%) (Auto) 20 % (24-48) Monocytes (%) (Auto) 9 % (0-9) Eosinophils (%) (Auto) 4 % (0-3) Basophils (%) (Auto) 1 % (0-3) Neutrophils # (Auto) 4.5 x10^3/uL (1.8-7.7) Lymphocytes # (Auto) 1.3 x10^3/uL (1.0-4.8) Monocytes # (Auto) 0.6 x10^3/uL (0.0-1.1) Eosinophils # (Auto) 0.3 x10^3/uL (0.0-0.7) Basophils # (Auto) 0.1 x10^3/uL (0.0-0.2) Sodium Level 137 mmol/L (136-145) Potassium Level 3.5 mmol/L (3.5-5.1) Chloride Level 104 mmol/L (98-107) Carbon Dioxide Level 30 mmol/L (21-32) Anion Gap 3 (6-14) Blood Urea Nitrogen 21 mg/dL (7-20) Creatinine 0.5 mg/dL (0.6-1.0) Estimated GFR (Cockcroft-Gault) 118.4 Glucose Level 100 mg/dL (70-99) Calcium Level 8.6 mg/dL (8.5-10.1) Brief Hospital Course 06/11: Discharge held yesterday for MRI. MRI showed no acute infarct or hemorrhage, no mass or abnormal enhancement, chronic demyelinating plaques could also be considered given reported history of MS. She is stable for d/c to rehab. Greater than 30 minutes spent managing discharge this patient. 06/10: Patient seen and evaluated bedside. Urine culture negative; she denies any further dysuria. Was previously on Dilantin, now on Keppra. Will prescribe on discharge. PT recommending SNF; the patient is agreeable. I believe this can happen today. Greater than 30 minutes spent managing discharge this patient. 06/09/2021 Patient seen and examined She is more alert this morning but apparently through the night had some confusion and another episode of nonresponsiveness Her friend is present seems to be good support for her Chart reviewed Discussed with RN 06/08/2021 Patient seen and examined She is on the phone and alert Discussed with RN I spoke with her brother Nba on the phone Chart reviewed She seems to be at her baseline we could probably go ahead and get her to long-term sometime soon 06/07/2021 Patient seen and examined Discussed with RN Discussed with case management Chart reviewed Currently patient is refusing to cooperate with physical exam Clinching her arms wallaby pull them open clenching her eyes show I will let me open them (she did the same thing a few days ago CT of the head was negative then) Suspect she is lonely and just does not want to go to long-term? 06/07/2019 Patient seen and examined Resting with NAD Has IV Clinimix hanging Discussed with RN Discussed with case management Chart reviewed We are hoping to discharge her to long-term soon 06/05/2021 Patient seen and examined Discussed with RN Discussed with manager of case Chart reviewed The patient remains very weak and pleasantly confused 81-year-old female, ,lives in her own house and was admiteed from the ER last for not feeling well. She had recent UTI, and was on oral abx, treated by Dr. Le, but she has had more trouble with weakness recently. compalins that over days, she had become progressively more confused, but feels much btter this AM. She is not having any pain, and reports feeling better, but is worried abotu her weakness. 5 days ago was startede on cephalosporin for UTI and then had weakness, confusion and nausea, and was not eating much. Discharge Information Condition at Discharge: Stable Disposition/Orders: D/C to Another Facility Scheduled Lactobacillus Rhamnosus Gg (Culturelle) 1 Each Cap.lluvia, 1 CAP PO BID for SUPPLEMENT for 30 Days, #60 Prescribed by: RAMIRO PEOPLES MD on 07/04/20 1441 Levetiracetam (Keppra) 500 Mg Tablet, 500 MG PO BID for Seizures, #60 Ref 5 Prescribed by: IVY CRAIG MD on 06/10/21 0942 Levothyroxine Sodium (Synthroid) 25 Mcg Tablet, 25 MCG PO DAILY06 for THYROID for 30 Days, #30 Prescribed by: RAMIRO PEOPLES MD on 01/27/19 1058 Triamterene/Hydrochlorothiazid (Triamterene-Hctz 37.5-25 Mg Tb) 1 Each Tablet, 1 TAB PO DAILY for bp, #30 Ref 5 (Reported) Entered as Reported by: GALLO RICH on 07/02/20 1838 Vancomycin Hcl (Vancocin Hcl) 125 Mg Capsule, 1 CAP PO QID for C. Diff for 10 Days, #40 Ref 0 Prescribed by: IVY CRAIG MD on 06/10/21 1116 Discontinued Medications Amoxicillin/Potassium Clav (Amoxicillin-Clav Er 1,000-62.5) 1 Each Tab.er.12h, 1 TAB PO BID for UTI, #10 Ref 0 Prescribed by: RAMIRO PEOPLES MD on 07/04/20 1441 Justicifation of Admission Dx: Justifications for Admission: Justification of Admission Dx: Yes Sepsis: Altered Mental Status IVY CRAIG MD Jun 10, 2021 08:56
--- NOTE | 2021-06-10 09:41 | PDOC ---
PROGRESS NOTES Date of Service DATE: 06/10/21 TIME: 09:36 Assessment Problems Medical Problems: (1) Acute cystitis Status: Acute (2) Acute metabolic encephalopathy Status: Acute (3) Other fatigue Status: Acute History multiple sclerosis, quiescent on the last MRI done 3 years ago. I have not seen her since her December 2018 hospital stay for rhabdomyolysis. Possible partial-complex seizures, better after Dilantin Urinary tract infection Metabolic encephalopathy, nausea and vomiting, gastritis. diverticulosis Inability to care for herself, general debility, uses a motorized wheelchair History of hypertension, hyperlipidemia, hypothyroidism, Plan Switch Dilantin to Keppra, discussed side effects I do not think an EEG would help I am going to update her MRI of the brain Agree with transfer to senior care unit Follow-up with me in 1-3 months. Subjective Denies pain, no more confusion episodes Objective Vital Signs Date Time Temp Pulse Resp B/P (MAP) Pulse Ox O2 Delivery O2 Flow Rate FiO2 06/10/21 08:15 Room Air 06/10/21 07:30 99.5 82 16 130/70 (90) 96 99.5 Intake and Output 06/10/21 07:00 Intake Total 1000 ml Balance 1000 ml Intake Oral 0 ml IV Total 1000 ml # Voids 8 # Bowel Movements 3 PHYSICAL EXAM Alert. Oriented to place and person, 1 day off on date. PERRL. EOMI. CN: no focal findings. Muscle tone: normal. Muscle strength: 4/5 DTR: 1+ Plantar reflex: Flexor Gait: not examined in bed. Sensory exam: no abnormal findings. No cerebellar signs elicited. Review of Relevant I have reviewed the following items luis felipe (where applicable) has been applied. Labs Laboratory Tests Test 06/09/21 06:40 06/10/21 04:25 White Blood Count 5.8 x10^3/uL (4.0-11.0) 6.8 x10^3/uL (4.0-11.0) Red Blood Count 4.00 x10^6/uL (3.50-5.40) 3.88 x10^6/uL (3.50-5.40) Hemoglobin 12.6 g/dL (12.0-15.5) 12.3 g/dL (12.0-15.5) Hematocrit 37.0 % (36.0-47.0) 36.4 % (36.0-47.0) Mean Corpuscular Volume 93 fL (79-100) 94 fL (79-100) Mean Corpuscular Hemoglobin 32 pg (25-35) 32 pg (25-35) Mean Corpuscular Hemoglobin Concent 34 g/dL (31-37) 34 g/dL (31-37) Red Cell Distribution Width 14.8 % (11.5-14.5) 14.7 % (11.5-14.5) Platelet Count 192 x10^3/uL (140-400) 211 x10^3/uL (140-400) Neutrophils (%) (Auto) 62 % (31-73) 67 % (31-73) Lymphocytes (%) (Auto) 25 % (24-48) 20 % (24-48) Monocytes (%) (Auto) 9 % (0-9) 9 % (0-9) Eosinophils (%) (Auto) 3 % (0-3) 4 % (0-3) Basophils (%) (Auto) 1 % (0-3) 1 % (0-3) Neutrophils # (Auto) 3.6 x10^3/uL (1.8-7.7) 4.5 x10^3/uL (1.8-7.7) Lymphocytes # (Auto) 1.4 x10^3/uL (1.0-4.8) 1.3 x10^3/uL (1.0-4.8) Monocytes # (Auto) 0.5 x10^3/uL (0.0-1.1) 0.6 x10^3/uL (0.0-1.1) Eosinophils # (Auto) 0.2 x10^3/uL (0.0-0.7) 0.3 x10^3/uL (0.0-0.7) Basophils # (Auto) 0.0 x10^3/uL (0.0-0.2) 0.1 x10^3/uL (0.0-0.2) Sodium Level 136 mmol/L (136-145) 137 mmol/L (136-145) Potassium Level 3.8 mmol/L (3.5-5.1) 3.5 mmol/L (3.5-5.1) Chloride Level 102 mmol/L (98-107) 104 mmol/L (98-107) Carbon Dioxide Level 29 mmol/L (21-32) 30 mmol/L (21-32) Anion Gap 5 (6-14) 3 (6-14) Blood Urea Nitrogen 20 mg/dL (7-20) 21 mg/dL (7-20) Creatinine 0.5 mg/dL (0.6-1.0) 0.5 mg/dL (0.6-1.0) Estimated GFR (Cockcroft-Gault) 118.4 118.4 Glucose Level 106 mg/dL (70-99) 100 mg/dL (70-99) Calcium Level 8.7 mg/dL (8.5-10.1) 8.6 mg/dL (8.5-10.1) Laboratory Tests Test 06/10/21 04:25 White Blood Count 6.8 x10^3/uL (4.0-11.0) Red Blood Count 3.88 x10^6/uL (3.50-5.40) Hemoglobin 12.3 g/dL (12.0-15.5) Hematocrit 36.4 % (36.0-47.0) Mean Corpuscular Volume 94 fL (79-100) Mean Corpuscular Hemoglobin 32 pg (25-35) Mean Corpuscular Hemoglobin Concent 34 g/dL (31-37) Red Cell Distribution Width 14.7 % (11.5-14.5) Platelet Count 211 x10^3/uL (140-400) Neutrophils (%) (Auto) 67 % (31-73) Lymphocytes (%) (Auto) 20 % (24-48) Monocytes (%) (Auto) 9 % (0-9) Eosinophils (%) (Auto) 4 % (0-3) Basophils (%) (Auto) 1 % (0-3) Neutrophils # (Auto) 4.5 x10^3/uL (1.8-7.7) Lymphocytes # (Auto) 1.3 x10^3/uL (1.0-4.8) Monocytes # (Auto) 0.6 x10^3/uL (0.0-1.1) Eosinophils # (Auto) 0.3 x10^3/uL (0.0-0.7) Basophils # (Auto) 0.1 x10^3/uL (0.0-0.2) Sodium Level 137 mmol/L (136-145) Potassium Level 3.5 mmol/L (3.5-5.1) Chloride Level 104 mmol/L (98-107) Carbon Dioxide Level 30 mmol/L (21-32) Anion Gap 3 (6-14) Blood Urea Nitrogen 21 mg/dL (7-20) Creatinine 0.5 mg/dL (0.6-1.0) Estimated GFR (Cockcroft-Gault) 118.4 Glucose Level 100 mg/dL (70-99) Calcium Level 8.6 mg/dL (8.5-10.1) Microbiology 06/02/21 Blood Culture - Final, Complete NO GROWTH AFTER 5 DAYS Medications Current Medications Ondansetron HCl (Zofran) 4 mg 1X ONCE IVP Last administered on 06/02/21 20:11; Start 06/02/21 at 19:30; Stop 06/02/21 at 19:38; Status DC Sodium Chloride 250 ml @ 500 mls/hr 1X ONCE IV Last administered on 06/02/21 20:08; Start 06/02/21 at 19:30; Stop 06/02/21 at 19:59; Status DC Acetaminophen (Tylenol) 1,000 mg 1X ONCE PO Last administered on 06/02/21 20: 11; Start 06/02/21 at 19:30; Stop 06/02/21 at 19:38; Status DC Multi-Ingredient Mouthwash/Gargle (Gi Cocktail) 20 ml 1X ONCE SWSW Last administered on 06/02/21 20:10; Start 06/02/21 at 19:30; Stop 06/02/21 at 19:38; Status DC Ceftriaxone Sodium (Rocephin) 1 gm 1X ONCE IVP Last administered on 06/02/21 20:08; Start 06/02/21 at 19:45; Stop 06/02/21 at 19:46; Status DC Iohexol (Omnipaque 300 Mg/ml) 75 ml 1X ONCE IV Last administered on 06/02/21 21:07; Start 06/02/21 at 20:45; Stop 06/02/21 at 20:46; Status DC Sodium Chloride 250 ml @ 500 mls/hr 1X ONCE IV Last administered on 06/02/21at 23:29; Start 06/02/21 at 22:15; Stop 06/02/21 at 22:44; Status DC Ondansetron HCl (Zofran) 4 mg PRN Q8HRS PRN IVP NAUSEA/VOMITING; Start 06/02/21 at 23:45; Stop 06/03/21 at 23:44; Status DC Acetaminophen (Tylenol) 650 mg PRN Q4HRS PRN PO PAIN MILD; Start 06/02/21 at 23:45; Stop 06/03/21 at 23:44; Status DC Potassium Chloride (Klor-Con) 40 meq 1X ONCE PO Last administered on 06/03/21at 12:11; Start 06/03/21 at 11:00; Stop 06/03/21 at 11:01; Status DC Ceftriaxone Sodium (Rocephin) 1 gm Q24H IVP Last administered on 06/08/21 18:11; Start 06/03/21 at 18:00; Stop 06/08/21 at 18:01; Status DC Lactobacillus Rhamnosus (Culturelle) 1 cap BID PO Last administered on 06/10/21at 08:39; Start 06/03/21 at 21:00 Acetaminophen (Tylenol) 650 mg PRN Q6HRS PRN PO MILD PAIN / TEMP > 100.3'F Last administered on 06/08/21at 08:22; Start 06/04/21 at 08:30 Amino Acids/ Electrolytes/ Dextrose 1,000 ml @ 80 mls/hr [id number] IV Last administered on 06/10/21at 03:48; Start 06/05/21 at 13:30 Lactobacillus Rhamnosus (Culturelle) 1 cap BID PO ; Start 06/06/21 at 21:00; Status Cancel Fosphenytoin Sodium (Cerebyx) 200 mg Q12HR IV Last administered on 06/08/21at 09:33; Start 06/07/21 at 23:00; Stop 06/08/21 at 16:14; Status DC Phenytoin Sodium (Dilantin) 300 mg HS PO Last administered on 06/08/21at 20:02; Start 06/08/21 at 21:00; Stop 06/09/21 at 15:58; Status DC Phenytoin Sodium (Dilantin) 400 mg HS PO Last administered on 06/09/21at 20:30; Start 06/09/21 at 21:00; Stop 06/10/21 at 08:43; Status DC Lorazepam (Ativan Inj) 1 mg PRN Q4HRS PRN IVP ANXIETY / AGITATION; Start 06/09/21 at 16:00 Levetiracetam (Keppra) 500 mg BID PO ; Start 06/10/21 at 09:00 Active Scripts Active Amoxicillin-Clav Er 1,000-62.5 (Amoxicillin/Potassium Clav) 1 Each Tab.er.12h 1 Tab PO BID Culturelle (Lactobacillus Rhamnosus Gg) 1 Each Cap.sprink 1 Cap PO BID 30 Days Synthroid (Levothyroxine Sodium) 25 Mcg Tablet 25 Mcg PO DAILY06 30 Days Reported Triamterene-Hctz 37.5-25 Mg Tb (Triamterene/Hydrochlorothiazid) 1 Each Tablet 1 Tab PO DAILY Vitals/I & O Vital Sign - Last 24 Hours 06/09/21 06/09/21 06/09/21 06/09/21 11:00 14:59 19:29 20:40 Temp 98.4 97.8 98.9 98.4 97.8 98.9 Pulse 73 77 107 Resp 18 16 18 B/P (MAP) 144/64 (90) 116/74 (88) 131/57 (81) Pulse Ox 96 94 96 O2 Delivery Room Air Room Air Room Air Room Air 06/09/21 06/10/21 06/10/21 06/10/21 22:40 02:56 07:30 08:15 Temp 98.3 99.0 99.5 98.3 99.0 99.5 Pulse 73 52 82 Resp 16 16 16 B/P (MAP) 138/57 (84) 149/66 (93) 130/70 (90) Pulse Ox 95 97 96 O2 Delivery Room Air Room Air Room Air Room Air Intake and Output 06/09/21 06/09/21 06/10/21 15:00 23:00 07:00 Intake Total 1000 ml 0 ml Balance 1000 ml 0 ml Justicifation of Admission Dx: Justifications for Admission: Justification of Admission Dx: Yes Sepsis: Altered Mental Status NAEL CASTANEDA MD Jun 10, 2021 09:41
[2021-06-10] MEDS ORDERED: LEVE500T56 PO (09:42)
--- NOTE | 2021-06-10 09:46 | SNU/HH DC ---
DISCHARGE ORDERS DISCHARGE INFORMATION: DISCHARGE DATE: Jun 10, 2021 FINAL DIAGNOSIS Problems Medical Problems: (1) Acute cystitis Status: Acute (2) Acute metabolic encephalopathy Status: Acute (3) Other fatigue Status: Acute CONDITION ON DISCHARGE: Stable CODE STATUS: Code Status: Full SENIOR CARE: SNF STAY <30 DAYS: Yes POST DISCHARGE ORDERS: ACTIVITY ORDERS: Activity as tolerated WEIGHT BEARING STATUS: Full weight bearing BATHING ORDERS: Shower-keep dressing dry DIET AFTER DISCHARGE: Cardiac WOUND/INCISION CARE: Ice to area for comfort, Do not change dressing CHECKS AFTER DISCHARGE: CHECKS AFTER DISCHARGE: Check blood press - daily TREATMENT/EQUIPMENT ORDERS: ADAPTIVE EQUIPMENT NEEDED: Front wheeled walker, Walker Physical Therapy For: Evalulation/Treatment Occupational Therapy For: Evaluation/Treatment Speech Language Pathology For: Evaluation/Treatment DISCHARGE MEDICATIONS: Home Meds Active Scripts Levetiracetam (KEPPRA) 500 Mg Tablet, 500 MG PO BID for Seizures, #60 TAB 5 Refills Prov:IVY CRAIG MD 06/10/21 Amoxicillin/Potassium Clav (AMOXICILLIN-CLAV ER 1,000-62.5) 1 Each Tab.er.12h, 1 TAB PO BID for UTI, #10 TAB.SR 0 Refills Prov:RAMIRO PEOPLES MD 07/04/20 Lactobacillus Rhamnosus Gg (CULTURELLE) 1 Each Cap.sprink, 1 CAP PO BID for SUPPLEMENT for 30 Days, #60 CAP Prov:RAMIRO PEOPLES MD 07/04/20 Levothyroxine Sodium (SYNTHROID) 25 Mcg Tablet, 25 MCG PO DAILY06 for THYROID for 30 Days, #30 TAB Prov:RAMIRO PEOPLES MD 01/27/19 Reported Medications Triamterene/Hydrochlorothiazid (TRIAMTERENE-HCTZ 37.5-25 MG TB) 1 Each Tablet, 1 TAB PO DAILY for bp, #30 TAB 5 Refills 07/02/20 IVY CRAIG MD Jun 10, 2021 09:46
[2021-06-10] MEDS: levETIRAcetam 500 MG TABLET PO SCH ×2 (09:56→21:33)
[2021-06-10 11:00] VITALS: BP 134/56
[2021-06-10] MEDS ORDERED: VANC125C10 PO (11:16)
--- NOTE | 2021-06-10 11:16 | NUR ---
SW following. Discussed with RN, SW awaiting confirmation from [facility] RE acceptance and insurance auth. MRI ordered per RN. SW will continue to follow.
[2021-06-10] MEDS: VANCOMYCIN 125 MG/2.5 ML ORAL SOLUTION. PO SCH ×3 (13:11→21:33)
[2021-06-10] MEDS ORDERED: GADOTERATE 7.5 MMOL/15ML VIAL. IVP ONE (14:30)
[2021-06-10 15:30] VITALS: BP 119/52
--- NOTE | 2021-06-10 16:32 | RAD ---
MRI BRAIN WO+W Date: 06/10/2021 2:23 PM Indication: new seizures, h/o MS Comparison: CT 06/02/2021. MRI 08/20/2018. Technique: Multiplanar multisequence MRI of the brain was performed with and without intravenous cont rast. 19 cc Clariscan contrast was administered intravenously during the exam. Findings: No acute infarct. No acute or chronic hemorrhage. The ventricles are normal in size and configuration without hydrocephalus. Mild scattered FLAIR hyperintensities in the subcortical and periventricular deep white matter, a nonspecific finding, most commonly seen with chronic small vessel ischemic disea se. Mild generalized cerebral volume loss. No abnormal enhancement. The scalp and calvarium are normal. The pituitary and sella are normal. No Chiari malformation. The v isualized upper cervical spine is normal. The visualized orbits and globes are normal. The visualized paranasal sinuses are clear. The mastoid air cells are clear. Normal flow voids within the vertebral, basilar, and internal carotid arteries indicating patency. IMPRESSION: 1. No acute infarct or hemorrhage. No mass or abnormal enhancement. 2. Mild scattered FLAIR hyperintensities in the subcortical and periventricular deep white matter, a nonspecific finding, most commonly seen with chronic small vessel ischemic disease in this age group. Chronic demyelinating plaques could also be considered given reported history of MS. Electronically signed by: Bharathi Trujillo MD (06/10/2021 4:30 PM) [id number]
[2021-06-10 19:15] VITALS: BP 123/55
[2021-06-10 23:10] VITALS: BP 154/64
[2021-06-11 03:15] VITALS: BP 112/56
[2021-06-11 07:00] VITALS: BP 126/50
[2021-06-11 07:52] LABS: BASO # 0.1 x10^3/uL (0.0-0.2); BASO % 1 % (0-3); EOS # 0.2 x10^3/uL (0.0-0.7); EOS % 4 % (0-3); HEMATOCRIT 35.6 % (36.0-47.0); LYMPH # 1.3 x10^3/uL (1.0-4.8); LYMPH % 25 % (24-48); MEAN CORPUSCULAR HEMOGLOBIN 32 pg (25-35); MEAN CORPUSCULAR HGB CONC 34 g/dL (31-37); MEAN CORPUSCULAR VOLUME 94 fL (79-100); MONO # 0.5 x10^3/uL (0.0-1.1); MONO % 10 % (0-9); NEUT # 3.2 x10^3/uL (1.8-7.7); NEUT % 61 % (31-73); PLATELET COUNT 236 x10^3/uL (140-400); RED CELL DISTRIBUTION WIDTH 14.4 % (11.5-14.5); WHITE BLOOD COUNT 5.3 x10^3/uL (4.0-11.0)
[2021-06-11 08:04] LABS: CREATININE 0.5 mg/dL (0.6-1.0); GFR 118.4
[2021-06-11] MEDS: LACTOBACILLUS RHAMNOSUS GG 1 CAPSULE. PO SCH (08:44)
[2021-06-11] MEDS: VANCOMYCIN 125 MG/2.5 ML ORAL SOLUTION. PO SCH (08:44)
[2021-06-11] MEDS: levETIRAcetam 500 MG TABLET PO SCH (08:44)
--- NOTE | 2021-06-11 08:47 | PDOC ---
PROGRESS NOTES Date of Service DATE: 06/11/21 TIME: 08:44 Assessment Problems Medical Problems: (1) Acute cystitis Status: Acute (2) Acute metabolic encephalopathy Status: Acute (3) Other fatigue Status: Acute History multiple sclerosis, quiescent on the last MRI done 3 years ago and again on the one done 06/10. Possible partial-complex seizures, better after Dilantin Urinary tract infection Metabolic encephalopathy, nausea and vomiting, gastritis. diverticulosis Inability to care for herself, general debility, uses a motorized wheelchair History of hypertension, hyperlipidemia, hypothyroidism, Plan Switched Dilantin to Keppra, discussed side effects I do not think an EEG would help Agree with transfer to [facility] unit Follow-up with me in 1-3 months. Plan No complaints Objective Vital Signs Date Time Temp Pulse Resp B/P (MAP) Pulse Ox O2 Delivery O2 Flow Rate FiO2 06/11/21 07:00 98.1 78 18 126/50 (75) 95 Room Air 98.1 Intake and Output 06/11/21 07:00 Intake Total 1750 ml Balance 1750 ml Intake Oral 190 ml IV Total 1560 ml # Voids 5 PHYSICAL EXAM Alert. Oriented to place and person, not sure of date. PERRL. EOMI. CN: no focal findings. Muscle tone: normal. Muscle strength: 4/5 DTR: 1+ Plantar reflex: Flexor Gait: not examined in bed. Sensory exam: no abnormal findings. No cerebellar signs elicited. Review of Relevant I have reviewed the following items luis felipe (where applicable) has been applied. Labs Laboratory Tests Test 06/09/21 12:51 06/10/21 04:25 06/11/21 06:15 Clostridium difficile Toxin (PCR) Positive (NEGATIVE) White Blood Count 6.8 x10^3/uL (4.0-11.0) 5.3 x10^3/uL (4.0-11.0) Red Blood Count 3.88 x10^6/uL (3.50-5.40) 3.80 x10^6/uL (3.50-5.40) Hemoglobin 12.3 g/dL (12.0-15.5) 12.0 g/dL (12.0-15.5) Hematocrit 36.4 % (36.0-47.0) 35.6 % (36.0-47.0) Mean Corpuscular Volume 94 fL (79-100) 94 fL (79-100) Mean Corpuscular Hemoglobin 32 pg (25-35) 32 pg (25-35) Mean Corpuscular Hemoglobin Concent 34 g/dL (31-37) 34 g/dL (31-37) Red Cell Distribution Width 14.7 % (11.5-14.5) 14.4 % (11.5-14.5) Platelet Count 211 x10^3/uL (140-400) 236 x10^3/uL (140-400) Neutrophils (%) (Auto) 67 % (31-73) 61 % (31-73) Lymphocytes (%) (Auto) 20 % (24-48) 25 % (24-48) Monocytes (%) (Auto) 9 % (0-9) 10 % (0-9) Eosinophils (%) (Auto) 4 % (0-3) 4 % (0-3) Basophils (%) (Auto) 1 % (0-3) 1 % (0-3) Neutrophils # (Auto) 4.5 x10^3/uL (1.8-7.7) 3.2 x10^3/uL (1.8-7.7) Lymphocytes # (Auto) 1.3 x10^3/uL (1.0-4.8) 1.3 x10^3/uL (1.0-4.8) Monocytes # (Auto) 0.6 x10^3/uL (0.0-1.1) 0.5 x10^3/uL (0.0-1.1) Eosinophils # (Auto) 0.3 x10^3/uL (0.0-0.7) 0.2 x10^3/uL (0.0-0.7) Basophils # (Auto) 0.1 x10^3/uL (0.0-0.2) 0.1 x10^3/uL (0.0-0.2) Sodium Level 137 mmol/L (136-145) 139 mmol/L (136-145) Potassium Level 3.5 mmol/L (3.5-5.1) 4.0 mmol/L (3.5-5.1) Chloride Level 104 mmol/L (98-107) 103 mmol/L (98-107) Carbon Dioxide Level 30 mmol/L (21-32) 30 mmol/L (21-32) Anion Gap 3 (6-14) 6 (6-14) Blood Urea Nitrogen 21 mg/dL (7-20) 23 mg/dL (7-20) Creatinine 0.5 mg/dL (0.6-1.0) 0.5 mg/dL (0.6-1.0) Estimated GFR (Cockcroft-Gault) 118.4 118.4 Glucose Level 100 mg/dL (70-99) 101 mg/dL (70-99) Calcium Level 8.6 mg/dL (8.5-10.1) 9.0 mg/dL (8.5-10.1) Laboratory Tests Test 06/11/21 06:15 White Blood Count 5.3 x10^3/uL (4.0-11.0) Red Blood Count 3.80 x10^6/uL (3.50-5.40) Hemoglobin 12.0 g/dL (12.0-15.5) Hematocrit 35.6 % (36.0-47.0) Mean Corpuscular Volume 94 fL (79-100) Mean Corpuscular Hemoglobin 32 pg (25-35) Mean Corpuscular Hemoglobin Concent 34 g/dL (31-37) Red Cell Distribution Width 14.4 % (11.5-14.5) Platelet Count 236 x10^3/uL (140-400) Neutrophils (%) (Auto) 61 % (31-73) Lymphocytes (%) (Auto) 25 % (24-48) Monocytes (%) (Auto) 10 % (0-9) Eosinophils (%) (Auto) 4 % (0-3) Basophils (%) (Auto) 1 % (0-3) Neutrophils # (Auto) 3.2 x10^3/uL (1.8-7.7) Lymphocytes # (Auto) 1.3 x10^3/uL (1.0-4.8) Monocytes # (Auto) 0.5 x10^3/uL (0.0-1.1) Eosinophils # (Auto) 0.2 x10^3/uL (0.0-0.7) Basophils # (Auto) 0.1 x10^3/uL (0.0-0.2) Sodium Level 139 mmol/L (136-145) Potassium Level 4.0 mmol/L (3.5-5.1) Chloride Level 103 mmol/L (98-107) Carbon Dioxide Level 30 mmol/L (21-32) Anion Gap 6 (6-14) Blood Urea Nitrogen 23 mg/dL (7-20) Creatinine 0.5 mg/dL (0.6-1.0) Estimated GFR (Cockcroft-Gault) 118.4 Glucose Level 101 mg/dL (70-99) Calcium Level 9.0 mg/dL (8.5-10.1) Microbiology 06/02/21 Blood Culture - Final, Complete NO GROWTH AFTER 5 DAYS Medications Current Medications Ondansetron HCl (Zofran) 4 mg 1X ONCE IVP Last administered on 06/02/21 20:11; Start 06/02/21 at 19:30; Stop 06/02/21 at 19:38; Status DC Sodium Chloride 250 ml @ 500 mls/hr 1X ONCE IV Last administered on 06/02/21 20:08; Start 06/02/21 at 19:30; Stop 06/02/21 at 19:59; Status DC Acetaminophen (Tylenol) 1,000 mg 1X ONCE PO Last administered on 06/02/21 20:11; Start 06/02/21 at 19:30; Stop 06/02/21 at 19:38; Status DC Multi-Ingredient Mouthwash/Gargle (Gi Cocktail) 20 ml 1X ONCE SWSW Last administered on 06/02/21 20:10; Start 06/02/21 at 19:30; Stop 06/02/21 at 19:38; Status DC Ceftriaxone Sodium (Rocephin) 1 gm 1X ONCE IVP Last administered on 06/02/21 20:08; Start 06/02/21 at 19:45; Stop 06/02/21 at 19:46; Status DC Iohexol (Omnipaque 300 Mg/ml) 75 ml 1X ONCE IV Last administered on 06/02/21 21:07; Start 06/02/21 at 20:45; Stop 06/02/21 at 20:46; Status DC Sodium Chloride 250 ml @ 500 mls/hr 1X ONCE IV Last administered on 06/02/21at 23:29; Start 06/02/21 at 22:15; Stop 06/02/21 at 22:44; Status DC Ondansetron HCl (Zofran) 4 mg PRN Q8HRS PRN IVP NAUSEA/VOMITING; Start 06/02/21 at 23:45; Stop 06/03/21 at 23:44; Status DC Acetaminophen (Tylenol) 650 mg PRN Q4HRS PRN PO PAIN MILD; Start 06/02/21 at 23:45; Stop 06/03/21 at 23:44; Status DC Potassium Chloride (Klor-Con) 40 meq 1X ONCE PO Last administered on 06/03/21at 12:11; Start 06/03/21 at 11:00; Stop 06/03/21 at 11:01; Status DC Ceftriaxone Sodium (Rocephin) 1 gm Q24H IVP Last administered on 06/08/21at 18:11; Start 06/03/21 at 18:00; Stop 06/08/21 at 18:01; Status DC Lactobacillus Rhamnosus (Culturelle) 1 cap BID PO Last administered on 06/10/21at 21:33; Start 06/03/21 at 21:00 Acetaminophen (Tylenol) 650 mg PRN Q6HRS PRN PO MILD PAIN / TEMP > 100.3'F Last administered on 06/08/21at 08:22; Start 06/04/21 at 08:30 Amino Acids/ Electrolytes/ Dextrose 1,000 ml @ 80 mls/hr [id number] IV Last administered on 06/10/21at 21:34; Start 06/05/21 at 13:30 Lactobacillus Rhamnosus (Culturelle) 1 cap BID PO ; Start 06/06/21 at 21:00; Status Cancel Fosphenytoin Sodium (Cerebyx) 200 mg Q12HR IV Last administered on 06/08/21at 09:33; Start 06/07/21 at 23:00; Stop 06/08/21 at 16:14; Status DC Phenytoin Sodium (Dilantin) 300 mg HS PO Last administered on 06/08/21at 20:02; Start 06/08/21 at 21:00; Stop 06/09/21 at 15:58; Status DC Phenytoin Sodium (Dilantin) 400 mg HS PO Last administered on 06/09/21at 20:30; Start 06/09/21 at 21:00; Stop 06/10/21 at 08:43; Status DC Lorazepam (Ativan Inj) 1 mg PRN Q4HRS PRN IVP ANXIETY / AGITATION; Start 06/09/21 at 16:00 Levetiracetam (Keppra) 500 mg BID PO Last administered on 06/10/21at 21:33; Start 06/10/21 at 09:00 Vancomycin HCl (Vancomycin Oral Solution) 125 mg [id number] PO Last administered on 06/10/21at 21:33; Start 06/10/21 at 13:00 Gadoterate Meglumine (Clariscan) 19 ml 1X ONCE IVP Last administered on 06/10/21at 15:16; Start 06/10/21 at 14:30; Stop 06/10/21 at 14:31; Status DC Active Scripts Active Vancocin Hcl (Vancomycin Hcl) 125 Mg Capsule 1 Cap PO QID 10 Days Keppra (Levetiracetam) 500 Mg Tablet 500 Mg PO BID Culturelle (Lactobacillus Rhamnosus Gg) 1 Each Cap.sprink 1 Cap PO BID 30 Days Synthroid (Levothyroxine Sodium) 25 Mcg Tablet 25 Mcg PO DAILY06 30 Days Reported Triamterene-Hctz 37.5-25 Mg Tb (Triamterene/Hydrochlorothiazid) 1 Each Tablet 1 Tab PO DAILY Vitals/I & O Vital Sign - Last 24 Hours 06/10/21 06/10/21 06/10/21 06/10/21 11:00 15:30 19:15 20:00 Temp 98.4 98.4 98.9 98.4 98.4 98.9 Pulse 80 74 79 Resp 19 16 17 B/P (MAP) 134/56 (82) 119/52 (74) 123/55 (77) Pulse Ox 96 96 94 O2 Delivery Room Air Room Air Room Air Room Air 06/10/21 06/11/21 06/11/21 23:10 03:15 07:00 Temp 98.6 99.3 98.1 98.6 99.3 98.1 Pulse 78 86 78 Resp 15 18 18 B/P (MAP) 154/64 (94) 112/56 (74) 126/50 (75) Pulse Ox 95 94 95 O2 Delivery Room Air Room Air Room Air Intake and Output 06/10/21 06/10/21 06/11/21 15:00 23:00 07:00 Intake Total 0 ml 1060 ml 690 ml Balance 0 ml 1060 ml 690 ml Images MRI BRAIN WO+W Date: 06/10/2021 2:23 PM Indication: new seizures, h/o MS Comparison: CT 06/02/2021. MRI 08/20/2018. Technique: Multiplanar multisequence MRI of the brain was performed with and without intravenous contrast. 19 cc Clariscan contrast was administered intravenously during the exam. Findings: No acute infarct. No acute or chronic hemorrhage. The ventricles are normal in size and configuration without hydrocephalus. Mild scattered FLAIR hyperinte nsities in the subcortical and periventricular deep white matter, a nonspecific finding, most commonly seen with chronic small vessel ischemic disease. Mild generalized cerebral volume loss. No abnormal enhancement. The scalp and calvarium are normal. The pituitary and sella are normal. No Chiari malformation. The visualized upper cervical spine is normal. The visualized orbits and globes are normal. The visualized paranasal sinuses are clear. The mastoid air cells are clear. Normal flow voids within the vertebral, basilar, and internal carotid arteries indicating patency. IMPRESSION: 1. No acute infarct or hemorrhage. No mass or abnormal enhancement. 2. Mild scattered FLAIR hyperintensities in the subcortical and periventricular deep white matter, a nonspecific finding, most commonly seen with chronic small vessel ischemic disease in this age group. Chronic demyelinating plaques could also be considered given reported history of MS. Justicifation of Admission Dx: Justifications for Admission: Justification of Admission Dx: Yes Sepsis: Altered Mental Status NAEL CASTANEDA MD Jun 11, 2021 08:46
--- NOTE | 2021-06-11 08:56 | PDOC ---
[facility] PROGRESS NOTE Date of Service DOS: DATE: 06/11/21 TIME: 08:54 Chief Complaint Chief Complaint Metabolic cephalopathy Possible seizure-like activity question UTI Nausea and vomiting Gastritis Diverticulosis Inability to care for herself Also history of the following semi- hypertension, hyperlipidemia, hypothyroidism, multiple sclerosis and obesity, weakness, uses motorized chair HTN, Hyperlipidemia History of Present Illness History of Present Illness 06/11: Discharge held yesterday for MRI. MRI showed no acute infarct or hemorrhage, no mass or abnormal enhancement, chronic demyelinating plaques could also be considered given reported history of MS. She is stable for d/c to rehab. Greater than 30 minutes spent managing discharge this patient. 06/10: Patient seen and evaluated bedside. Urine culture negative; she denies any further dysuria. Was previously on Dilantin, now on Keppra. Will prescribe on discharge. PT recommending SNF; the patient is agreeable. I believe this can happen today. Greater than 30 minutes spent managing discharge this patient. 06/09/2021 Patient seen and examined She is more alert this morning but apparently through the night had some confusion and another episode of nonresponsiveness Her friend is present seems to be good support for her Chart reviewed Discussed with RN 06/08/2021 Patient seen and examined She is on the phone and alert Discussed with RN I spoke with her brother Nba on the phone Chart reviewed She seems to be at her baseline we could probably go ahead and get her to alf sometime soon 06/07/2021 Patient seen and examined Discussed with RN Discussed with case management Chart reviewed Currently patient is refusing to cooperate with physical exam Clinching her arms wallaby pull them open clenching her eyes show I will let me open them (she did the same thing a few days ago CT of the head was negative then) Suspect she is lonely and just does not want to go to alf? 06/07/2019 Patient seen and examined Resting with NAD Has IV Clinimix hanging Discussed with RN Discussed with case management Chart reviewed We are hoping to discharge her to alf soon 06/05/2021 Patient seen and examined Discussed with RN Discussed with telehealth case manager Chart reviewed The patient remains very weak and pleasantly confused 81-year-old female, ,lives in her own house and was admiteed from the ER last for not feeling well. She had recent UTI, and was on oral abx, treated by Dr. Le, but she has had more trouble with weakness recently. compalins that over days, she had become progressively more confused, but feels much btter this AM. She is not having any pain, and reports feeling better, but is worried abotu her weakness. 5 days ago was startede on cephalosporin for UTI and then had weakness, confusion and nausea, and was not eating much. Vitals/I&O Vitals/I&O: Vital Signs Date Time Temp Pulse Resp B/P (MAP) Pulse Ox O2 Delivery O2 Flow Rate FiO2 06/11/21 07:00 98.1 78 18 126/50 (75) 95 Room Air 98.1 I & O 06/10/21 06/10/21 06/11/21 15:00 23:00 07:00 Intake Total 0 ml 1060 ml 690 ml Balance 0 ml 1060 ml 690 ml Physical Exam General: Alert, No acute distress Heart: Regular rate Lungs: Clear Abdomen: Normal bowel sounds Extremities: No cyanosis, Other (2+ edema, muscle wasting, weakness , ) Skin: No breakdown Labs Labs: Laboratory Tests Test 06/11/21 06:15 White Blood Count 5.3 x10^3/uL (4.0-11.0) Red Blood Count 3.80 x10^6/uL (3.50-5.40) Hemoglobin 12.0 g/dL (12.0-15.5) Hematocrit 35.6 % (36.0-47.0) Mean Corpuscular Volume 94 fL (79-100) Mean Corpuscular Hemoglobin 32 pg (25-35) Mean Corpuscular Hemoglobin Concent 34 g/dL (31-37) Red Cell Distribution Width 14.4 % (11.5-14.5) Platelet Count 236 x10^3/uL (140-400) Neutrophils (%) (Auto) 61 % (31-73) Lymphocytes (%) (Auto) 25 % (24-48) Monocytes (%) (Auto) 10 % (0-9) Eosinophils (%) (Auto) 4 % (0-3) Basophils (%) (Auto) 1 % (0-3) Neutrophils # (Auto) 3.2 x10^3/uL (1.8-7.7) Lymphocytes # (Auto) 1.3 x10^3/uL (1.0-4.8) Monocytes # (Auto) 0.5 x10^3/uL (0.0-1.1) Eosinophils # (Auto) 0.2 x10^3/uL (0.0-0.7) Basophils # (Auto) 0.1 x10^3/uL (0.0-0.2) Sodium Level 139 mmol/L (136-145) Potassium Level 4.0 mmol/L (3.5-5.1) Chloride Level 103 mmol/L (98-107) Carbon Dioxide Level 30 mmol/L (21-32) Anion Gap 6 (6-14) Blood Urea Nitrogen 23 mg/dL (7-20) Creatinine 0.5 mg/dL (0.6-1.0) Estimated GFR (Cockcroft-Gault) 118.4 Glucose Level 101 mg/dL (70-99) Calcium Level 9.0 mg/dL (8.5-10.1) Assessment and Plan Assessmemt and Plan Problems Medical Problems: (1) Acute cystitis Status: Acute (2) Acute metabolic encephalopathy Status: Acute (3) Other fatigue Status: Acute Comment Review of Relevant I have reviewed the following items luis felipe (where applicable) has been applied. Medications: Current Medications Medications (Trade) Dose Ordered Sig/Forest Route PRN Reason Start Time Stop Time Status Last Admin Dose Admin Levetiracetam (Keppra) 500 mg BID PO 06/10/21 09:00 06/11/21 08:44 Vancomycin HCl (Vancomycin Oral Solution) 125 mg [id number] PO 06/10/21 13:00 06/11/21 08:44 Gadoterate Meglumine (Clariscan) 19 ml 1X ONCE IVP 06/10/21 14:30 06/10/21 14:31 DC 06/10/21 15:16 Justifications for Admission Other Justification IVY CRAIG MD Jun 11, 2021 08:56
--- NOTE | 2021-06-11 10:47 | NUR ---
Discharge Note: MAXIMILIAN LAM Discharge instructions and discharge home medications reviewed with corie Olivera PP and a copy given. All questions have been answered and understanding verbalized. The following instructions and handouts were given: transfer of care, follow up instructions Discontinued lines and drains: 22 guage right FA, tip intact. patient tolerated well. Patient discharged to [facility] via transport.
--- NOTE | 2021-06-11 10:49 | NUR ---
SW following. Discussed with RN, pt discharging to [facility] today at 1030. Family and RN notified.
== END 2021-06-11 10:30 | DRG 689 ==
LOC: ER 16:30 → ED HOLD 21:55 → 2 NORTH 23:05
PROVIDERS: ADMIT Student in an Organized Health Care Education/Training Program; ATTEND Student in an Organized Health Care Education/Training Program
DX: N30.00 Acute cystitis without hematuria (principal); G93.41 Metabolic encephalopathy; Z68.43 Body mass index [BMI] 50.0-59.9, adult; K29.70 Gastritis, unspecified, without bleeding; E03.9 Hypothyroidism, unspecified; I10 Essential (primary) hypertension; Z20.822 Contact with and (suspected) exposure to COVID-19; E78.5 Hyperlipidemia, unspecified; E66.01 Morbid (severe) obesity due to excess calories; M19.90 Unspecified osteoarthritis, unspecified site; K57.30 Diverticulosis of large intestine without perforation or abscess without bleeding; G35 Multiple sclerosis; R53.81 Other malaise; Z99.3 Dependence on wheelchair; Z87.891 Personal history of nicotine dependence; Z88.8 Allergy status to other drugs, medicaments and biological substances; Z88.5 Allergy status to narcotic agent
CPT/HCPCS: 36415; 70450; 70553; 71045; 74177; 80048; 80053; 80307; 80329; 81001; 83605; 83690; 83880; 84484; 85025; 87040; 87426; 87493; 93005; 96374; 96375; A9575; G0480; J0696; J2405; J3490; J7040; Q2009; Q9967; U0003; 97110-GP; 97530-GO; 97530-GP; 97535-GO; 99285-25; G0378